=== PATIENT | female | born 1940 | race Caucasian/White ===

== ENCOUNTER 2018-06-25 00:37 | Outpatient (CLI) | payer MEDICARE, SELFPAY ==
--- NOTE | 2018-06-25 07:39 | DI.RAD_ITS ---
SYMPTOM/DIAGNOSIS: RT HIP PAIN, OSTEOPENIA M25.551, M85.80 RIGHT HIP: Comparison is made with 10 November 2011. There has been no change in the appearance of a left total hip prosthesis. There are moderate degenerative changes of the right hip with joint space narrowing, greater medially and inferiorly and periarticular spurring. There are advanced degenerative changes of the lower lumbar spine. Surgical clips are seen in the right lower quadrant. IMPRESSION: Moderate degenerative changes of the right hip.
[2018-06-25 08:00] LABS: Abs Immature Grans 0.02 k/cumm (0.0-0.09); Absolute Basophil Count 0.04 k/cumm (0.0-0.2); Absolute Eosinophil Count 0.35 k/cumm (0.0-0.7); Absolute Lymphocyte Count 2.25 k/cumm (1.2-3.4); Absolute Monocyte Count 0.68 k/cumm (0.11-0.7); Absolute Neutrophil Count 2.65 k/cumm (1.2-6.7); Basophils % 0.7; Eosinophils % 5.8; HCT 39.1 % (36.0-46.0); Immature Grans % 0.3; Lymphocytes % 37.6; Mean Corp. HGB Concentration 33.2 g/dL (32.0-36.0); Mean Corpuscular Hemoglobin 28.6 pg (27.0-33.0); Mean Corpuscular Volume 86.1 fL (80-95); Mean Platelet Volume 8.9 fL (8.0-11.0); Monocytes % 11.4; Neutrophils % 44.2; Platelet Count 192 x1000/uL (130-400); RBC 4.54 m/cumm (4.00-5.20); RBC Distribution Width 13.3 % (11.7-14.6); White Blood Cell Count 5.99 k/cumm (4.4-10.8)
[2018-06-25 08:46] LABS: ALT 23 U/L (12-78); AST 20 U/L (15-37); Albumin 3.8 g/dL (3.4-5.0); Alkaline Phosphatase 95 U/L (46-116); Anion Gap 10.5 mmol/L (3-11); BUN 19 mg/dL (7-18); Bilirubin, Total 0.6 mg/dL (0.2-1.0); CO2 26.5 mmol/L (21.0-32.0); CREATININE 0.89 mg/dL (0.55-1.02); Chloride 103 mmol/L (98-107); Cholesterol 200 mg/dL (50-200); Glucose 100 mg/dL (70-100); HDL Cholesterol 43 mg/dL (40-60); LDL CHOLESTEROL 146 mg/dL (<100); Potassium 4.1 mmol/L (3.5-5.1); Sodium 140 mmol/L (136-145); TSH 2.76 uIU/mL (0.358-3.74); Total Protein 7.1 g/dL (6.4-8.2); Triglyceride 74 mg/dL (30-150)
[2018-06-25 08:58] LABS: Vitamin D 25 Total 31.4 ng/ml (30-100)
[2018-06-25 09:02] LABS: FREE T4 1.16 ng/dL (0.76-1.46)
[2018-06-26 17:21] LABS: Intrinsic Factor Blocking Ab Negative (Negative)
== END 2018-06-25 00:57 ==
PROVIDERS: PCP Nurse Practitioner Family; Visit Provider Nurse Practitioner Family
DX: R53.83 Other fatigue (principal); M85.80 Other specified disorders of bone density and structure, unspecified site; I10 Essential (primary) hypertension; M25.551 Pain in right hip; M16.11 Unilateral primary osteoarthritis, right hip; Z96.642 Presence of left artificial hip joint
CPT/HCPCS: 36415; 80053; 80061; 82306; 83721; 73502; 84439; 84443; 85025; 86255; 86340

== ENCOUNTER → 2018-08-16 13:44 | Outpatient (BNVA) | payer MEDICARE, SELFPAY | PROVIDERS: PCP Nurse Practitioner Family; Referring Provider Nurse Practitioner Family; Visit Provider Orthopaedic Surgery | DX: M16.11 Unilateral primary osteoarthritis, right hip (principal); I10 Essential (primary) hypertension; Z96.642 Presence of left artificial hip joint | CPT/HCPCS: 99211; 99213 ==

== ENCOUNTER → 2018-12-04 10:06 | Outpatient (BNVA) | payer MEDICARE, SELFPAY | PROVIDERS: PCP Nurse Practitioner Family; Referring Provider Nurse Practitioner Family; Visit Provider Orthopaedic Surgery | DX: M16.11 Unilateral primary osteoarthritis, right hip (principal); Z96.642 Presence of left artificial hip joint | CPT/HCPCS: 99212 ==

== ENCOUNTER 2018-12-04 12:06 | Outpatient (CLI) | payer MEDICARE, SELFPAY ==
--- NOTE | 2018-12-04 10:37 | DI.RAD_ITS ---
SYMPTOMS/DIAGNOSIS: F/U DJD, RT HIP AP EXAMINATION OF THE HIPS: The patient is status post left MAYANK, the prosthesis in good position, surrounding bone intact. There are moderately severe degenerative changes involving the right hip with no significant interval change when compared with the prior examination of 06/25/2018.
== END 2018-12-04 12:26 ==
PROVIDERS: PCP Nurse Practitioner Family; Referring Provider Nurse Practitioner Family; Visit Provider Orthopaedic Surgery
DX: M16.11 Unilateral primary osteoarthritis, right hip (principal); Z96.642 Presence of left artificial hip joint
CPT/HCPCS: 99211; 99212; 72170

== ENCOUNTER 2019-05-16 06:35 | Emergency (ER) | payer MEDICARE, SELFPAY ==
[2019-05-16 06:39] VITALS: BP 190/90; PULSE 114; RESP 16; TEMP 36.9; O2SAT 99
--- NOTE | 2019-05-16 06:53 | ED.GENADUL_ITS ---
Discharge Plan Disposition Patient Disposition: HOME Condition: Good Discharge Details Chief Complaint: GenMedical Clinical Impression: Anxiety, Elevated blood pressure reading Primary Care Provider: Eliza Rockwell ED Provider: Cande Haji Home Meds and New Rx's Prescriptions: Continued cholecalciferol (vitamin D3) 2,000 unit capsule 2,000 unit PO DAILY RF: 0 multivitamin 1 EACH tablet 1 tab PO 2-3X/WEEKLY RF: 0 vit A and D3 in cod liver oil [cod liver oil] 1 EACH capsule 1 tsp PO 2-3x/wk RF: 0 ascorbic acid (vitamin C) [Vitamin C With Erin Hips] 500 MG tablet 500 mg PO DAILY RF: 0 Blutein 1 cap PO DAILY RF: 0 cyanocobalamin (vitamin B-12) 1,500 MCG tablet,disintegrating 1,500 mcg PO DAILY Qty: 30 RF: 11 Discontinued sertraline 50 mg Tablet 50 mg PO DAILY RF: 0 No Action alprazolam [Xanax] 0.5 mg tablet 0.5 mg PO QHS MDD 0.5 PRN (Reason: anxiety) Qty: 30 RF: 0 venlafaxine 37.5 mg capsule,extended release 24hr 37.5 mg PO DAILY Qty: 90 RF: 4 Discharge Instructions Instructions: Anxiety (ED) Additional Instructions: Please continue to take your medication as primary care asked you to. You may use alprazolam for acute anxiety attacks. Follow-up with primary care with therapist as scheduled. Return to ED for neurologic changes, severe headache, chest pain, shortness of breath. Referrals: Eliza Rockwell NP [Primary Care Provider] - Discharge Data Discharge Date/Time-TO BE ENTERED AT DEPARTURE: 05/16/19 09:17 Discharge Physician: Cande Haji Medical Decision Making <Gregg Angel MD - Last Filed: 05/19/19 20:40> Patient is extremely anxious. Suspect this is driving her blood pressure and heart rate more than anything else. She is a little concerned for her thyroid so we will check TSH with reflex T4. However, she is completely asymptomatic in regards to hypertensive crisis. She has a lot of questions regarding her medications. I have told her that that should be something her primary care continues to manage as it is a matter of finding the right medication for the patient. I would not start an antihypertensive at this point. Medical Records Medical records reviewed: Yes I reviewed the patient's medical records. <Cande Haji DO - Last Filed: 05/16/19 10:23> 0800 -- Please see Dr. Angel's note for initial presentation and course. Patient care endorsed to me to follow-up on results of TSH and T4 and if negative, okay to discharge home with plan for follow-up with PCP. 0845 -- TSH within normal limits. Had an extensive discussion with patient regarding her symptoms of anxiety. She is extremely anxious in general but more when discussing her medication regimen. She had been taking half tab of her alprazolam twice daily. She states she is not sleeping. She was advised to go up to the recommended 1 tab twice daily as needed. She had been taking Effexor up until last June but stopped until starting sertraline 4 days ago. She felt more anxious with 50mg sertraline. She was then tapered down to 25 mg sertraline and restarted on her Effexor but states she felt better with the 25 mg sertraline. She was advised to discuss her continued medication plan with her pcp and we discussed the benefits of meditation and relaxation techniques. After this discussion, patient feels good to go home. She was advised to follow-up with her primary care doctor for reevaluation and to return here with any concerns. She had no other acute complaints prior to discharge. BP before discharge improved to 156/84. HPI <Gregg Angel MD - Last Filed: 05/19/19 20:40> General Mode of arrival: ambulatory . Date/Time Provider Initiated Documentation: 05/16/19 06:50 . Limitations to Documentation: no limitations . Information obtained by: patient, RN notes reviewed and old records reviewed . HPI Narrative: Patient presents to ED with complaints of elevated blood pressure and anxiety. She has been having issues with anxiety for a few weeks now. Seems to be triggered by the of a close family member. She has been seen by primary care. She was started on sertraline but is being switched over to venlafaxine. She also has alprazolam to use. She is not on blood pressure medicine currently. She denies having headache, chest pain, shortness of breath, neurologic changes. She is extremely anxious. She feels that the medications that there is using and changing around his was making her blood pressure go up. She is also worried that maybe it is her thyroid again and she felt this way previously with thyroid problem. She does not have any specific physical complaint. Related Data Home Medications Medication Instructions Recorded Confirmed multivitamin 1 tab PO 2-3X/WEEKLY 11/05/12 05/16/19 vit A and D3 in cod liver oil [cod 1 tsp PO 2-3x/wk 11/05/12 05/16/19 liver oil] ascorbic acid (vitamin C) [Vitamin 500 mg PO DAILY 04/04/14 05/16/19 C With Erin Hips] Blutein 1 cap PO DAILY 05/24/17 05/16/19 cyanocobalamin (vitamin B-12) 1,500 mcg PO DAILY #30 tab.sl 12/18/17 05/16/19 cholecalciferol (vitamin D3) 2,000 2,000 unit PO DAILY 08/31/18 05/16/19 unit capsule alprazolam 0.5 mg tablet 0.5 mg PO QHS PRN #30 tab-cap [facility] 05/17/19 0.5 venlafaxine 37.5 mg 37.5 mg PO DAILY #90 cap 05/17/19 capsule,extended release 24 hr Previous Rx's Medication Instructions Recorded cyanocobalamin (vitamin B-12) 1,500 mcg PO DAILY #30 tab.sl 12/18/17 alprazolam 0.5 mg tablet 0.5 mg PO QHS PRN #30 tab-cap MDD 05/17/19 0.5 venlafaxine 37.5 mg 37.5 mg PO DAILY #90 cap 05/17/19 capsule,extended release 24 hr Allergies Allergy/AdvReac Type Severity Reaction Status Date / Time adhesive Allergy Intermediate SKIN RASH Verified 05/16/19 06:45 atenolol Allergy Intermediate SHORTNESS Verified 05/16/19 06:45 OF BREATH Echinacea AdvReac Intermediate NAUSEA/VOMI Verified 05/16/19 06:45 TING lisinopril AdvReac Unknown ANXIOUS Verified 05/16/19 06:45 pseudoephedrine AdvReac Unknown ANXIOUS Verified 05/16/19 06:45 caffeine AdvReac shaky if Verified 05/16/19 06:45 >1 cup/day citalopram AdvReac ANXIETY Verified 05/16/19 06:45 shellfish derived AdvReac NAUSEA/VOMI Verified 05/16/19 06:45 TING NUT FLAVOR Allergy HIVES Uncoded 05/16/19 06:45 General Stated Complaint: GenMedical CYNTHIA: 3 Review of Systems <Gregg Angel MD - Last Filed: 05/19/19 20:40> Narrative: As documented in HPI otherwise negative as below. 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 aDy Social History Smoking/Tobacco Use Status: Never Alcohol Intake: current Alcohol Intake frequency: a few times a month Alcohol type: beer and wine Drug use: Never Substance use type: does not use Duration: 15-30 minutes/day Frequency: 3-4 times per week Emmie/Catholic: Latter-Day Special emmie needs: No Do you feel safe at home: Yes Do you feel safe in your relationship?: Yes History History 1 Para 1 Hx # Term Pregnancies Multiple births Hx # Pregnancies Ectopic pregnancies AB induced Hx Number of Living Children 1 AB spontaneous Exam <Gregg Angel MD - Last Filed: 05/19/19 20:40> Narrative Exam Narrative: Vitals: Afebrile. Heart rate and blood pressure elevated. Room air saturations normal. Const: WDWN very anxious elderly female in NAD. HEENT: NC/AT. Normal facial exam. Eyes: Normal conjunctiva and sclera. Neck: Supple. Trachea midline. Lungs: Normal respiratory effort. Lungs are clear. Cor: RRR without murmur/gallop. Good radial pulses. Neuro: A+O x 3. Cranial nerves grossly intact. Speech, gait, strength, sensation normal. Course <Gregg Angel MD - Last Filed: 05/19/19 20:40> Vital Signs Vital signs: Vital Signs Temperature 98.4 F 05/16/19 06:39 Pulse 114 H 05/16/19 06:39 Respiratory Rate 16 05/16/19 06:39 Blood Pressure 190/90 H 05/16/19 06:39 Pulse Oximetry 99 05/16/19 06:39 Temperature 98.4 F 05/16/19 06:39 Pulse 114 H 05/16/19 06:39 Respiratory Rate 16 05/16/19 06:39 Respiratory Effort Non-Labored 05/16/19 06:48 Blood Pressure 190/90 H 05/16/19 06:39 Pulse Oximetry 99 05/16/19 06:39 Oxygen Delivery Method Room Air 05/16/19 06:39 Oxygen Flow Rate 0 05/16/19 06:39 Comment restarted venlafaxine 37.5 mg daily-lastnight 05/16/19 06:39 Sign Out <Gregg Angel MD - Last Filed: 05/19/19 20:40> Sign Out Data: Sign Out Comment: Pending return of laboratory studies patient signed over to Dr. Haji. Last updated by Gregg Angel MD at 05/16/19 07:55
[2019-05-16 07:08] VITALS: RESP 18
[2019-05-16 08:03] LABS: TSH (W/Ref FT4) 1.82 uIU/mL (0.36-3.74)
[2019-05-16 08:53] VITALS: BP 156/84; PULSE 90; RESP 18; O2SAT 98
[2019-05-16 09:20] VITALS: BP 158/84; PULSE 90; RESP 18; O2SAT 98
== END 2019-05-16 09:17 | disposition home or self-care (01) ==
PROVIDERS: Emergency Medicine; Emergency Provider Physician Assistant; PCP Nurse Practitioner Family
DX: F41.8 Other specified anxiety disorders (principal); I10 Essential (primary) hypertension
CPT/HCPCS: 36415; 99283; 84443

== ENCOUNTER 2019-06-24 09:42 | Outpatient (CLI) | payer MEDICARE, SELFPAY ==
[2019-06-24 11:26] LABS: HCT 41.7 % (36.0-46.0); HGB 13.5 g/dL (12.0-15.5); Mean Corp. HGB Concentration 32.4 g/dL (32.0-36.0); Mean Corpuscular Hemoglobin 27.9 pg (27.0-33.0); Mean Corpuscular Volume 86.2 fL (80-95); Mean Platelet Volume 8.8 fL (8.0-11.0); Platelet Count 251 x1000/uL (130-400); RBC 4.84 m/cumm (4.00-5.20); RBC Distribution Width 13.6 % (11.7-14.6); White Blood Cell Count 8.44 k/cumm (4.4-10.8)
[2019-06-24 12:03] LABS: Anion Gap 10.2 mmol/L (3-11); BUN 17 mg/dL (7-18); CO2 27.8 mmol/L (21.0-32.0); CREATININE 0.77 mg/dL (0.55-1.02); Calcium 9.2 mg/dL (8.5-10.1); Chloride 102 mmol/L (98-107); Glucose 110 mg/dL (74-106); Potassium 3.8 mmol/L (3.5-5.1); Sodium 140 mmol/L (136-145)
[2019-06-24 12:58] LABS: Vitamin B12 216 pg/mL (193-986)
[2019-06-29 15:28] LABS: Methylmalonic Acid 0.34 nmol/mL (<=0.40)
== END 2019-06-24 10:02 ==
PROVIDERS: PCP Nurse Practitioner Family; Visit Provider Nurse Practitioner Family
DX: F41.1 Generalized anxiety disorder (principal); F32.9 Major depressive disorder, single episode, unspecified; Z86.39 Personal history of other endocrine, nutritional and metabolic disease; E53.8 Deficiency of other specified B group vitamins
CPT/HCPCS: 36415; 80048; 80186; 85027; 82607

== ENCOUNTER 2019-07-04 10:51 | Outpatient (CLI) | payer MEDICARE, SELFPAY ==
[2019-07-04 13:07] LABS: Magnesium 2.3 mg/dL (1.8-2.4)
== END 2019-07-04 11:11 ==
PROVIDERS: PCP Nurse Practitioner Family; Visit Provider Nurse Practitioner Family
DX: I10 Essential (primary) hypertension (principal)
CPT/HCPCS: 36415; 83735

== ENCOUNTER 2019-09-02 11:27 | Outpatient (CLI) | payer MEDICARE, SELFPAY ==
[2019-09-02 13:07] LABS: HCT 39.8 % (36.0-46.0); HGB 13.1 g/dL (12.0-15.5); Mean Corp. HGB Concentration 32.9 g/dL (32.0-36.0); Mean Corpuscular Hemoglobin 28.3 pg (27.0-33.0); Platelet Count 266 x1000/uL (130-400); RBC 4.63 m/cumm (4.00-5.20); RBC Distribution Width 13.7 % (11.7-14.6); White Blood Cell Count 8.27 k/cumm (4.4-10.8)
[2019-09-02 13:51] LABS: ALT 19 U/L (14-59); AST 16 U/L (15-37); Albumin 3.9 g/dL (3.4-5.0); Alkaline Phosphatase 93 U/L (46-116); BUN 16 mg/dL (7-18); Bilirubin, Total 0.5 mg/dL (0.2-1.0); CREATININE 0.68 mg/dL (0.55-1.02); Calcium 9.2 mg/dL (8.5-10.1); Chloride 102 mmol/L (98-107); Glucose 98 mg/dL (74-106); Potassium 4.1 mmol/L (3.5-5.1); Sodium 141 mmol/L (136-145); Total Protein 6.9 g/dL (6.4-8.2)
== END 2019-09-02 11:47 ==
PROVIDERS: PCP Nurse Practitioner Family; Visit Provider Nurse Practitioner Family
DX: F41.1 Generalized anxiety disorder (principal); F32.9 Major depressive disorder, single episode, unspecified; I10 Essential (primary) hypertension
CPT/HCPCS: 36415; 80053; 85027

== ENCOUNTER 2019-09-25 04:18 | Outpatient (CLI) | payer MEDICARE, SELFPAY | END 2019-09-25 04:38 | PROVIDERS: PCP Nurse Practitioner Family; Visit Provider Nurse Practitioner Family | DX: R00.2 Palpitations (principal); I47.1 Supraventricular tachycardia | CPT/HCPCS: 93225 ==

== ENCOUNTER 2019-09-27 16:35 | Outpatient (CLI) | payer MEDICARE, SELFPAY ==
--- NOTE | 2019-09-30 08:53 | W.HOLTRPT ---
Date of service: 09/30/19 Time of Service: 08:54 Holter Monitor Report Holter Monitor Note: This is a 2-day Holter monitor ordered for the indication of palpitations. ?The patient was in normal sinus rhythm for the majority of the recording. ?There were 2 episodes of supraventricular tachycardia with the longest lasting 6 beats. There were rare (55 total) premature atrial contractions. ?There were no episodes of ventricular tachycardia and rare (0.5%) single ventricular ectopic beats. ?There were no episodes of atrial fibrillation, no pauses greater than 3 seconds and no episodes of high degree heart block. ?Patient diary events were associated with normal sinus rhythm and a premature atrial contraction.
== END 2019-09-27 16:55 ==
PROVIDERS: PCP Nurse Practitioner Family; Visit Provider Nurse Practitioner Family
DX: R00.2 Palpitations (principal); I47.1 Supraventricular tachycardia
CPT/HCPCS: 93226

== ENCOUNTER 2019-09-30 08:53 | Outpatient (CLI) | payer MEDICARE, SELFPAY | END 2019-09-30 09:13 | PROVIDERS: PCP Nurse Practitioner Family; Referring Provider Nurse Practitioner Family; Visit Provider Internal Medicine Cardiovascular Disease | DX: R00.2 Palpitations (principal); I47.1 Supraventricular tachycardia | CPT/HCPCS: 93227 ==

== ENCOUNTER 2019-12-17 19:32 | Outpatient (REF) | payer MEDICARE, SELFPAY ==
[2019-12-17 20:22] LABS: HCT 39.4 % (36.0-46.0); HGB 13.1 g/dL (12.0-15.5); Mean Corp. HGB Concentration 33.2 g/dL (32.0-36.0); Mean Corpuscular Volume 87.2 fL (80-95); Mean Platelet Volume 9.3 fL (8.0-11.0); Platelet Count 251 x1000/uL (130-400); RBC 4.52 m/cumm (4.00-5.20); RBC Distribution Width 13.3 % (11.7-14.6); White Blood Cell Count 10.04 k/cumm (4.4-10.8)
[2019-12-17 20:41] LABS: ALT 22 U/L (14-59); AST 18 U/L (15-37); Albumin 4.2 g/dL (3.4-5.0); Alkaline Phosphatase 91 U/L (46-116); Anion Gap 10.9 mmol/L (3-11); BUN 20 mg/dL (7-18); Bilirubin, Total 0.4 mg/dL (0.2-1.0); CO2 24.1 mmol/L (21.0-32.0); CREATININE 0.85 mg/dL (0.55-1.02); Calcium 9.1 mg/dL (8.5-10.1); Chloride 101 mmol/L (98-107); Glucose 109 mg/dL (74-106); Potassium 4.1 mmol/L (3.5-5.1); Sodium 136 mmol/L (136-145); Total Protein 7.3 g/dL (6.4-8.2)
[2019-12-17 20:49] LABS: TSH (W/Ref FT4) 1.13 uIU/mL (0.36-3.74)
[2019-12-18 10:50] LABS: Hemoglobin A1C 5.4 % (3.8-5.6)
== END 2019-12-17 19:52 ==
LOC: LBN 19:32
PROVIDERS: PCP Nurse Practitioner Family; Visit Provider Family Medicine
DX: R73.01 Impaired fasting glucose (principal); F32.9 Major depressive disorder, single episode, unspecified; F41.1 Generalized anxiety disorder
CPT/HCPCS: 80053; 85027; 83036; 84443

== ENCOUNTER 2020-02-17 01:20 | Outpatient (CLI) | payer MEDICARE, SELFPAY ==
--- NOTE | 2020-02-17 07:45 | DI.MRI_ITS ---
EXAM: MR BRAIN WO CLINICAL HISTORY: UNSTEADY GAIT/[id number]. TECHNIQUE: Multiplanar multisequence MRI was performed. COMPARISON: No exams were available for comparison FINDINGS: MR examination of brain was performed according to the usual protocol. There is mild generalized cere bral atrophy. There are scattered areas of abnormal signal in periventricular and subcortical white m atter consistent with mild microvascular ischemic changes not unusual in this age group.. There is no evidence of diffusion restriction to suggest the presence of infarction. Susceptibility weighted johnathan ging shows no evidence of intracranial hemorrhage. The orbital and temporal bone structures appear intact. There is normal flow void in the [id number] llis vasculature. IMPRESSION: Mild cerebral atrophy and mild presumed microvascular ischemic changes, the appearance of the scan is unremarkable for age. DATA REPOSITORY:
== END 2020-02-17 01:40 ==
PROVIDERS: PCP Nurse Practitioner Family; Visit Provider Nurse Practitioner Family
DX: R26.89 Other abnormalities of gait and mobility (principal); G31.9 Degenerative disease of nervous system, unspecified
CPT/HCPCS: 70551

== ENCOUNTER 2020-06-04 04:47 | Outpatient (CLI) | payer MEDICARE, SELFPAY ==
[2020-06-04 17:22] LABS: Ferritin 154 ng/mL (8-252)
== END 2020-06-04 05:07 ==
PROVIDERS: PCP Nurse Practitioner Family; Visit Provider Nurse Practitioner
DX: M25.551 Pain in right hip (principal)
CPT/HCPCS: 36415; 82728

== ENCOUNTER 2020-07-03 03:42 | Outpatient (CLI) | payer MEDICARE, SELFPAY ==
[2020-07-06 17:20] LABS: COVID-19 RT-PCR Result NEGATIVE (Negative)
== END 2020-07-03 04:02 ==
PROVIDERS: PCP Nurse Practitioner Family; Visit Provider Nurse Practitioner Family
DX: Z20.828 Contact with and (suspected) exposure to other viral communicable diseases (principal)
CPT/HCPCS: U0003

== ENCOUNTER 2020-08-07 01:52 | Outpatient (CLI) | payer MEDICARE, SELFPAY ==
[2020-08-07 10:09] LABS: ALT 21 U/L (14-59); AST 15 U/L (15-37); Albumin 3.9 g/dL (3.4-5.0); Alkaline Phosphatase 69 U/L (46-116); Anion Gap 7.5 mmol/L (3-11); BUN 16 mg/dL (7-18); Bilirubin, Total 0.6 mg/dL (0.2-1.0); CO2 27.5 mmol/L (21.0-32.0); CREATININE 0.92 mg/dL (0.55-1.02); Calcium 8.5 mg/dL (8.5-10.1); Chloride 102 mmol/L (98-107); Estimated GFR 58.59 (mL/min/1.73m2); Glucose 96 mg/dL (74-106); Sodium 137 mmol/L (136-145); TSH 1.52 uIU/mL (0.36-3.74); Total Protein 6.9 g/dL (6.4-8.2)
== END 2020-08-07 02:12 ==
PROVIDERS: PCP Nurse Practitioner Family; Visit Provider Nurse Practitioner Psychiatric/Mental Health
DX: F33.2 Major depressive disorder, recurrent severe without psychotic features (principal); F41.1 Generalized anxiety disorder; F60.9 Personality disorder, unspecified
CPT/HCPCS: 36415; 80053; 84443

== ENCOUNTER 2022-12-25 13:35 | Outpatient (REF) | payer MEDICARE, SELFPAY ==
[2022-12-25 15:08] LABS: COMMENT (LAB VIEW ONLY) 74.95 mg/dL; Microalb ug/mg Crea 5.3 ug/mg Cr
[2022-12-25 15:28] LABS: Anion Gap 10.9 mmol/L (3-11); BUN 10 mg/dL (7-18); CO2 26.1 mmol/L (21.0-32.0); CREATININE 0.7 mg/dL (0.55-1.02); Calcium 8.5 mg/dL (8.5-10.1); Chloride 101 mmol/L (98-107); Estimated GFR 85.76 (mL/min/1.73m2); Glucose 121 mg/dL (74-106); Sodium 138 mmol/L (136-145); TSH (W/Ref FT4) 0.83 uIU/mL (0.36-3.74); Vitamin B12 1596 pg/mL (193-986)
[2022-12-25 16:01] LABS: Bilirubin Negative (Negative); Blood Negative (Negative); Clarity Clear (Clear); Glucose Negative (Negative); Ketones Negative (Negative); Leukocyte Esterase Moderate (Negative); Nitrite Positive (Negative); Specific Gravity 1.015 (1.005-1.025)
[2022-12-25 16:19] LABS: Bacteria Many HPF (Negative); C & S Indicated? C&S Done As Ordered; Casts Negative LPF (Negative); Crystals Negative HPF (Negative); Epithelial Cells Rare HPF (Negative); Mucus Negative (Negative); RBC 0-2 HPF (0-2); WBC 20-50 HPF (0-5)
== END 2022-12-25 13:36 | disposition home or self-care (01) ==
LOC: NCHCN 13:35
PROVIDERS: Visit Provider Nurse Practitioner Family
DX: F41.8 Other specified anxiety disorders (principal); R26.89 Other abnormalities of gait and mobility; F43.23 Adjustment disorder with mixed anxiety and depressed mood; R03.0 Elevated blood-pressure reading, without diagnosis of hypertension; R32 Unspecified urinary incontinence; Z51.81 Encounter for therapeutic drug level monitoring; Z79.899 Other long term (current) drug therapy; M25.551 Pain in right hip
CPT/HCPCS: 80048; 87077; 80164; 81003; 81015; 82043; 82570; 82607; 84443; 87086; 87186

== ENCOUNTER 2023-01-23 19:06 | Outpatient (REF) | payer MEDICARE, SELFPAY ==
[2023-01-24 05:45] LABS: Bilirubin Negative (Negative); Blood Negative (Negative); Clarity Sl Cloudy (Clear); Glucose Negative (Negative); Ketones Negative (Negative); Leukocyte Esterase Small (Negative); Nitrite Negative (Negative); Urobilinogen 0.2 mg/dL (Up to 0.2); pH 5.5 (5-8)
[2023-01-24 05:53] LABS: Bacteria Many HPF (Negative); C & S Indicated? Yes; Crystals Negative HPF (Negative); Epithelial Cells Rare HPF (Negative); Mucus Negative (Negative); RBC 0-2 HPF (0-2)
== END 2023-01-23 19:07 | disposition home or self-care (01) ==
LOC: NCHCN 19:06
PROVIDERS: Visit Provider Nurse Practitioner Family
DX: R82.998 Other abnormal findings in urine (principal)
CPT/HCPCS: 87077; 81003; 81015; 87086; 87186

== ENCOUNTER 2023-02-25 08:53 | Emergency (ER) | payer MEDICARE, SELFPAY ==
[2023-02-25] VITALS (13 sets, daily range): BP systolic 134–175; BP diastolic 61–93; PULSE 87–100; RESP 18–39; TEMP 36.9; O2SAT 94–99
--- NOTE | 2023-02-25 09:00 | RT.EKG_ITS ---
APPROVED REPORT Exam: Resting ECG Reason for Exam: fall/Syncope Patient Location: E HR:84 bpm ECG Measurements Heart Rate 84 AXIS [place] 151 P 68 QRSd 87 QRS -2 QT 350 T 38 QTc 414 Conclusion Sinus rhythm...normal P axis, V-rate 60- 99
--- NOTE | 2023-02-25 09:15 | DI.CT_ITS ---
Exam(s) CT HEAD CERVICAL SPINE WO EXAM: CT HEAD CERVICAL SPINE WO CLINICAL HISTORY: fall headache, neck pain. TECHNIQUE: Imaging Protocol: Axial computed tomography images with coronal and sagittal reformatted images were created and reviewed COMPARISON: CT SINUS CT WITHOUT CONTRAST from 05/11/2015 MR MR BRAIN WO from 02/17/2020 FINDINGS: Head CT Ventricles and Extra axial spaces: Slight compression of the left lateral ventricle. Hemorrhage: There is an acute subdural hematoma seen extending from the level of the left tentorium a s well as long the posterior falx on the left and around the left frontotemporal and parietal sulci nearly to the level of the vertex. It measures 7 millimeters in greatest thickness. There is mild m ass effect on the adjacent brain with slight [id number] midline shift. No intraparenchymal hemorr ryne. Cerebral parenchyma: No intraparenchymal hemorrhage. Mild white matter changes of microvascular dise ase. Midline shift: Mild, few millimeters. Brainstem/Cerebellum: Normal. Calvarium: Normal. Visualized Paranasal sinuses/Mastoids: Clear. Soft tissues: Left superior scalp swelling. Punctate densities in the scalp could represent debris w ithin are underneath this scan. No visible large laceration. Cervical Spine CT BONES: Vertebral body heights are maintained. Alignment is normal. There is no evidence of acute frac ture. Degenerative changes are seen, greater of the facet joints. . SOFT TISSUES: No paraspinal hematoma. The airway appears intact. No pneumothorax is seen at the lung apices. IMPRESSION: Head CT: Left subdural hematoma causing mild mass effect mild [id number] midline shift. C-spine CT: Degenerative changes, no acute abnormality. RADIATION DOSE DELIVERED: Total DLP DATA REPOSITORY: All CT scans at this facility are submitted to the National Radiology Data Registry (NRDR) Dose Index Registry (DIR) with the [employer] ([employer]). RADIATION OPTIMIZATION: All CT scans at this facility use at least one of these dose optimization te chniques: automated exposure control; mA and/or kV adjustment per patient size (includes targeted exa ms where dose is matched to clinical indication); or iterative reconstruction.
--- NOTE | 2023-02-25 09:30 | ED.GENADUL_ITS ---
Discharge Plan Disposition Patient Disposition: Transfer-Acute Inpatient Care Specific Acute Inpt Facility: [facility] Discharge Details Clinical Impression: Subdural bleeding, Closed rib fracture, Multiple falls Primary Care Provider: None,None ED Provider: Reese Kline Home Meds and New Rx's Prescriptions: No Action cholecalciferol (vitamin D3) 2,000 unit capsule 2,000 unit PO DAILY cyanocobalamin (vitamin B-12) 1,500 mcg tablet,disintegrating 1,000 mcg PO DAILY trazodone 50 mg tablet 25 mg PO QHS Qty: 45 4RF Rx Instructions: Take half a tablet at bedtime propranolol 10 mg tablet 10 mg PO BID clonazepam 0.5 mg tablet 0.25 mg PO BID docusate sodium 100 mg capsule 100 mg PO DAILY PRN (Reason: constipation) Qty: 90 4RF vit A and D3 in cod liver oil [cod liver oil] 1 EACH capsule 1 tsp PO 2-3x/wk ascorbic acid (vitamin C) [Vitamin C With Erin Hips] 500 MG tablet 500 mg PO DAILY multivitamin Tablet 1 tab PO 2-3X/WEEKLY Blutein 1 cap PO Q OTHER DAY olanzapine 5 mg tablet 2.5 mg PO BID fluoxetine 40 mg capsule 40 mg PO DAILY Rx Instructions: Take 1 daily in addition to the 10mg capsule fluoxetine 10 mg capsule 10 mg PO DAILY Rx Instructions: Take 1 pill daily in addition to the 40mg capsule valproic acid 250 mg capsule 250 mg PO BID acetaminophen 500 mg Tablet 500 mg PO BID lorazepam 0.5 mg tablet 0.5 mg PO BID fluticasone propionate 50 mcg/actuation spray,suspension 1 spray INTRANASAL DAILY Rx Instructions: one spray in each nostril daily mirtazapine 7.5 mg tablet 7.5 mg PO HS acetylcysteine [NAC] 600 mg capsule 600 mg PO BID Patient Comments: Take 2 capsule by mouth twice a day melatonin 5 mg Tablet 5 mg PO HS PRN PreserVision AREDS 2,148 mcg-113 mg-45 mg-17.4mg Tablet 1 tab PO DAILY Discharge Data Discharge Date/Time-TO BE ENTERED AT DEPARTURE: 02/25/23 14:50 Medical Decision Making Patient presenting to the emergency department for chief complaint of multiple falls. Patient reports 4 falls since yesterday. Patient had recently moved to [facility] due to not being able to stay at home anymore. Patient has history of gait instability but due to significant number of falls with patient striking her head against the door frame and complaining of headache, neck pain, continued rib pain from previous falls and abdominal pain they sent her here. Patient is alert and oriented x3, can be difficult to understand due to mumbling but is able to communicate, no focal deficits noted but generalized weakness is appreciated. Given multiple areas of pain and discomfort and multiple falls given patient's age, history of osteopenia, and head injury will plan on performing labs, urinalysis, EKG, and CT scan of patient. Pending results we will give a small fluid bolus due to dry mucous membranes and acetaminophen. Please see physician interpretation for full interpretation of EKG but upon my review patient is in sinus rhythm, rate of 84, and overall unremarkable EKG. Reviewed patient's labs and she does have slight leukocytosis with WBCs of 13.84, elevated neutrophils and monocytes with low lymphocytes. CMP shows slightly low potassium at 3.4, AST low of 13 otherwise all other values within normal range, negative nondetected troponin. Review of CT imaging and radiologist interpretation shows a posterior nondisplaced left 11th rib fracture otherwise no other acute findings. CT imaging of head and neck shows a fairly significant subdural head bleed. No C- spine image deformity. Did initiate transfer to [facility]. Pending speaking to [facility] patient urinalysis returned and does show signs of infection so 1 g of Rocephin was given. Spoke with Dr. Rondon with neurosurgery. He recommended that we give Keppra but stated that they had no bed capacity to accept patient. Once I have requested a reached out to [facility] to see if they have capacity to have patient admission. Pending speaking with [facility] I did order 1 g of Keppra. Spoke with Dr. Llanos with neurosurgery at [facility] he stated that patient did not need to come to their facility but recommended a ED to ED transfer given the patient is a trauma patient. Spoke with Dr. Bennett ER attending who accepted patient for transfer. Imaging Data Radiologic Study: Imaging: CT Scan Radiologist's impression: Patient Name: Romy Arredondo #: [id number]: ER Ordering Provider: : REG ER Primary Care Provider: None,None Date of Exam: 02/25/23Sex: F : 1940Age: 82 Exam(s) PROCEDURE INFORMATION: Exam: CT Chest With Contrast; Diagnostic Exam date and time: 02/25/2023 11:06 AM Age: 82 years old Clinical indication: Other: Fall, right rib abdominal pain TECHNIQUE: Imaging protocol: Diagnostic computed tomography of the chest with contrast. Radiation optimization: All CT scans at this facility use at least one of these dose optimization techniques: automated exposure control; mA and/or kV adjustment per patient size (includes targeted exams where dose is matched to clinical indication); or iterative reconstruction. Contrast material: OMNI 350; Contrast volume: 99 ml; Contrast route: INTRAVENOUS (IV); COMPARISON: CT HEAD CERVICAL SPINE WO 02/25/2023 10:48 AM FINDINGS: Lungs: Left basilar scarring Pleural spaces: Unremarkable. No pneumothorax. No pleural effusion. Heart: Unremarkable. No cardiomegaly. No pericardial effusion. Coronary arteries: Coronary artery atherosclerotic calcifications Lymph nodes: Unremarkable. No enlarged lymph nodes. Vasculature: The right main pulmonary artery is markedly dilated at 3.5 cm, compatible with pulmonary hypertension, uncertain etiology Bones/joints: Possible nondisplaced right posterolateral 11th rib fracture. Recommend clinical correlation Soft tissues: Unremarkable. IMPRESSION: 1. Possible nondisplaced right posterolateral 11th rib fracture. Recommend clinical correlation 2. No pneumothorax PROCEDURE INFORMATION: Exam: CT Abdomen And Pelvis With Contrast Exam date and time: 02/25/2023 11:06 AM Age: 82 years old Clinical indication: Other: Fall, right rib abdominal pain TECHNIQUE: Imaging protocol: Computed tomography of the abdomen and pelvis with contrast. Radiation optimization: All CT scans at this facility use at least one of these dose optimization techniques: automated exposure control; mA and/or kV adjustment per patient size (includes targeted exams where dose is matched to clinical indication); or iterative reconstruction. Contrast material: OMNI 350; Contrast volume: 99 ml; Contrast route: INTRAVENOUS (IV); COMPARISON: CR XR pelvis AP 12/04/2018 10:29 AM FINDINGS: Lungs: See above Liver: Unremarkable. No mass. Gallbladder and bile ducts: Unremarkable. No calcified stones. No ductal dilation. Pancreas: Unremarkable. No ductal dilation. Spleen: Unremarkable. No splenomegaly. Adrenal glands: Normal. No mass. Kidneys and ureters: Unremarkable. No hydronephrosis. Stomach and bowel: Unremarkable. No obstruction. No mucosal thickening. Appendix: No evidence of appendicitis. Intraperitoneal space: Unremarkable. No free air. No significant fluid collection. Vasculature: Unremarkable. No abdominal aortic aneurysm. Lymph nodes: Unremarkable. No enlarged lymph nodes. Urinary bladder: Unremarkable as visualized. Reproductive: Unremarkable as visualized. Bones/joints: Left total hip arthroplasty. Severe right hip osteoarthritis. Remote fractures of the inferior pubic rami and right pubic symphysis. Remote sacral Soft tissues: Large umbilical hernia containing nondilated stool-filled large bowel IMPRESSION: No evidence of acute process HPI General Mode of arrival: EMS . Date/Time Provider Initiated Documentation: 02/25/23 08:56 . Limitations to Documentation: no limitations . Information obtained by: patient, RN/MD, EMS and RN notes reviewed . History of Present Illness 82 year old F presents to the emergency department with the chief complaint of Multiple falls, head injury, neck pain, rib pain, described as similar to prior episodes, and is localized to the head, neck and chest. Patient started experiencing this unknown and it has been intermittent. No exacerbating factors reported . Patient did receive the following treatments prior to arrival, none Related Data Home Medications Medication Instructions Recorded Confirmed vitamins A and D3 in cod liver oil 1 tsp PO 2-3x/wk 11/05/12 06/15/20 1,250 unit-135 unit capsule (cod liver oil) ascorbic acid (vitamin C) 500 mg 500 mg PO DAILY 04/04/14 02/25/23 tablet (Vitamin C With Erin Hips) cholecalciferol (vitamin D3) 50 2,000 unit PO DAILY 08/31/18 02/25/23 mcg (2,000 unit) capsule multivitamin 1 tab PO 2-3X/WEEKLY 07/18/19 02/25/23 Blutein 1 cap PO Q OTHER DAY 07/26/19 06/15/20 cyanocobalamin (vitamin B-12) 1,000 mcg PO DAILY 07/26/19 02/25/23 1,500 mcg disintegrating tablet propranolol 10 mg tablet 10 mg PO BID 02/12/20 06/15/20 trazodone 50 mg tablet 25 mg PO QHS #45 tabs 02/12/20 02/25/23 clonazepam 0.5 mg tablet 0.25 mg PO BID 02/21/20 06/15/20 olanzapine 5 mg tablet 2.5 mg PO BID 05/15/20 06/15/20 docusate sodium 100 mg capsule 100 mg PO DAILY PRN constipation 06/15/20 02/25/23 #90 caps fluoxetine 10 mg capsule 10 mg PO DAILY 07/30/20 fluoxetine 40 mg capsule 40 mg PO DAILY 07/30/20 acetaminophen 500 mg tablet 500 mg PO BID 02/25/23 02/25/23 acetylcysteine 600 mg capsule (NAC) 600 mg PO BID 02/25/23 02/25/23 fluticasone propionate 50 1 spray intranasal DAILY 02/25/23 02/25/23 mcg/actuation nasal spray,suspension lorazepam 0.5 mg tablet 0.5 mg PO BID 02/25/23 02/25/23 melatonin 5 mg tablet 5 mg PO HS PRN 02/25/23 02/25/23 mirtazapine 7.5 mg tablet 7.5 mg PO HS 02/25/23 02/25/23 valproic acid 250 mg capsule 250 mg PO BID 02/25/23 02/25/23 vitamins A,C,R-erco-iqwnll 2,148 1 tab PO DAILY 02/25/23 02/25/23 mcg-113 mg-45 mg-17.4 mg tablet (PreserVision AREDS) Previous Rx's Medication Instructions Recorded trazodone 50 mg tablet 25 mg PO QHS #45 tabs 02/12/20 docusate sodium 100 mg capsule 100 mg PO DAILY PRN constipation 06/15/20 #90 caps Allergies Allergy/AdvReac Type Severity Reaction Status Date / Time adhesive Allergy Intermediate SKIN RASH Verified 02/25/23 13:50 atenolol Allergy Intermediate SHORTNESS Verified 02/25/23 13:50 OF BREATH Echinacea AdvReac Intermediate NAUSEA/VOMI Verified 02/25/23 13:50 TING lisinopril AdvReac Unknown ANXIOUS Verified 02/25/23 13:50 pseudoephedrine AdvReac Unknown ANXIOUS Verified 02/25/23 13:50 caffeine AdvReac shaky if Verified 02/25/23 13:50 >1 cup/day citalopram AdvReac ANXIETY Verified 02/25/23 13:50 inverted sugar AdvReac make Verified 02/25/23 13:50 nervous shellfish derived AdvReac NAUSEA/VOMI Verified 02/25/23 13:50 TING NUT FLAVOR Allergy HIVES Uncoded 02/25/23 13:50 General Stated Complaint: Dizzy/Sync CYNTHIA: 3 Review of Systems Constitutional Constitutional: Denies chills, Denies fever(s), Reports frequent falls, Reports headache(s), Reports lethargy and Reports weakness ENT Ears, Nose, Mouth, and Throat: Reports headache(s) Cardiovascular Cardiovascular: Reports chest pain (Right rib pain) and Denies dyspnea Respiratory Respiratory: Reports chest congestion and Denies dyspnea Gastrointestinal Gastrointestinal: Reports abdominal pain, Denies diarrhea, Denies nausea and Denies vomiting Genitourinary Genitourinary: Denies dysuria Integumentary/Breasts Skin/Breast: Denies unusual bruising Neurologic Neurologic: Reports frequent falls, Reports headache(s) and Reports weakness [facility] All Active Problems (Updated 02/25/23 @ 14:27 by Reese Kline NP) Subdural bleeding (Acute) Closed rib fracture (Acute) Multiple falls (Acute) Essential hypertension (Chronic) Hyperlipidemia (Chronic) Depressive disorder (Chronic) Followed by [facility] Psychiatry Generalized anxiety disorder (Chronic) Vitamin B12 deficiency (Chronic) Insomnia (Chronic) PSG 04/2020 with no sleep apnea but PLMD Osteopenia (Chronic) PLMD (periodic limb movement disorder) (Chronic) PSG 04/2020 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 Day Family History Mother , at 95 Essential hypertension Depression Heart disease Colon cancer Father , Heart attack at age 91. Depression Myocardial infarction Heart disease Hypertension Son Hypertension Maternal Grandfather , at 72 Heart disease Maternal Grandmother , at 58 Colon cancer Paternal Grandfather Heart disease Paternal Grandmother Heart disease Hypertension Social History Smoking/Tobacco Use Status: Never Smoking risk assessment performed?: Yes Alcohol Intake: current Alcohol Intake frequency: a few times a month Alcohol type: beer and wine Drug use: Never Substance use type: does not use Housing: assisted living facility Duration: 15-30 minutes/day Frequency: 3-4 times per week Emmie/Protestant: Druze Special emmie needs: No Do you feel safe at home: Yes Do you feel safe in your relationship?: Yes Additional Social history: Patient Lives at [facility] History History 1 Para 1 Hx # Term Pregnancies Multiple births Hx # Pregnancies Ectopic pregnancies AB induced Hx Number of Living Children 1 AB spontaneous Exam Const General: cooperative, no acute distress and frail appearing Nutritional Appearance: thin Orientation: alert, awake and oriented x3 HENMT Head: normocephalic, abrasion, no Silva's sign, no raccoon eyes and no scalp tenderness Ears: TM's normal bilaterally General nose exam: external nose normal Face and sinus: normal facial exam Mouth: oral mucosae normal Neck Neck: normal visual inspection, full ROM and nontender Chest Chest: tenderness (Right axillary ribs) Resp Effort & Inspection: normal respiratory effort, able to speak in complete sentences and no respiratory distress Auscultation: clear to auscultation bilaterally Cardio Rate: regular rate Rhythm: regular rhythm Heart Sounds: S1 normal Pulses: radial pulses present GI Palpation: soft, no hepatosplenomegaly, not firm, no guarding, no masses, no pulsatile masses, not rigid, no splenomegaly and tender in the LLQ and suprapubicly Auscultation: normal bowel sounds Skin General skin exam: no rashes or lesions noted Neuro General: patient alert, patient awake, patient oriented x3, moves all extremities and no focal motor deficits Sensory Exam: no sensory deficits noted Course Vital Signs Vital signs: Vital Signs Temperature 36.9 C 02/25/23 08:55 Pulse 89 02/25/23 08:55 Respiratory Rate 18 02/25/23 08:55 Blood Pressure 134/93 H 02/25/23 08:55 Pulse Oximetry 98 02/25/23 08:55 Temperature 36.9 C 02/25/23 08:55 Temperature Source Oral 02/25/23 08:55 Pulse 89 02/25/23 08:55 Respiratory Rate 18 02/25/23 09:02 Respiratory Effort Normal, Non-Labored 02/25/23 09:02 Respiratory Depth Normal 02/25/23 09:02 Respiratory Pattern Normal 02/25/23 09:02 Blood Pressure 134/93 H 02/25/23 08:55 Pulse Oximetry 98 02/25/23 08:55 Oxygen Delivery Method Room Air 02/25/23 08:55 Oxygen Flow Rate 0 02/25/23 08:55 Critical Care Time Critical Care Time Critical Care Time: Yes Total Critical Care Time: 45 Attestation: Due to subdural bleed with high probability of imminent or life threatening deterioration in the patient?s condition without intervention and treatment. Time spent documenting, reviewing labs and radiographs, monitoring Vital signs, reassessing patient, and speaking with both [facility] and [facility] tertiary care centers, neurosurgery teams, emergency department team, and EMS.
[2023-02-25] MEDS: Normal Saline 500 ML IV (09:35)
[2023-02-25 09:38] LABS: Absolute Basophil Count 0.07 10^3/uL (0.0-0.2); Absolute Eosinophil Count 0.04 10^3/uL (0.0-0.7); Absolute Lymphocyte Count 0.93 10^3/uL (1.2-3.4); Basophils % 0.5; Eosinophils % 0.3; HCT 33.6 % (36.0-46.0); HGB 11.2 g/dL (11.2-15.7); Immature Grans % 0.7; Lymphocytes % 6.7; MCH 30.3 pg (27.0-33.0); MCHC 33.3 % (32.0-36.0); MCV 91 fL (80-95); MPV 8.1 fL (8.0-11.0); Monocytes % 9.2; Neutrophils % 82.6; Platelet Count 183 10^3/uL (130-400); RDW 13.5 % (11.7-14.6); RDW-SD 45.1 fL; WBC 13.84 10^3/uL (4.4-10.8)
[2023-02-25 09:43] LABS: Absolute Monocyte Count 1.27 10^3/uL (0.1-0.8); Absolute Neutrophil Count 11.43 10^3/uL (1.2-6.7)
[2023-02-25 09:52] LABS: Prothrombin Time 9.9 sec (9.3-11.0)
[2023-02-25 09:56] LABS: ALT 20 U/L (14-59); AST 13 U/L (15-37); Albumin 3.5 g/dL (3.4-5.0); Alkaline Phosphatase 110 U/L (46-116); Anion Gap 10.3 mmol/L (3-11); BUN 8 mg/dL (7-18); Bilirubin, Total 0.7 mg/dL (0.2-1.0); CO2 27.7 mmol/L (21.0-32.0); CREATININE 0.7 mg/dL (0.55-1.02); Calcium 8.7 mg/dL (8.5-10.1); Chloride 99 mmol/L (98-107); Estimated GFR 85.76 (mL/min/1.73m2); Glucose 104 mg/dL (74-106); Magnesium 2.1 mg/dL (1.8-2.4); Potassium 3.4 mmol/L (3.5-5.1); Sodium 137 mmol/L (136-145); Total Protein 7.3 g/dL (6.4-8.2); Troponin I < 50 ng/L (<or=60)
--- NOTE | 2023-02-25 11:06 | DI.CT_ITS ---
Exam(s) CT CHEST/ABD/PEL W EXAM: CT CHEST/ABD/PEL W CLINICAL HISTORY: fall right rib and abd pain. TECHNIQUE: Imaging Protocol: Axial computed tomography images with coronal and sagittal reformatted images were created and reviewed CONTRAST MATERIAL: Intravenous: Omnipaque 350 Contrast volume:99 ml Oral: no COMPARISON: CT ABD PELVIS WITH CONTRAST from 08/10/2010 CT ABD PELVIS WO CONTRAST from 04/06/2012 CR,XR XR FEMUR LT from 02/25/2023 FINDINGS: CHEST: Tracheobronchial tree: Patent where visualized. Pulmonary parenchyma: No consolidation or dominant measurable mass. Minimal linear scarring at lung bases. Pleura: No effusion or pneumothorax. Lymph nodes: Within normal limits. Aorta: Thoracic portion non-dilated. Atherosclerotic changes. Heart: Mildly enlarged. Coronary artery calcifications, mitral valve calcifications. Bones: Severe degenerative changes of both shoulders. No lytic or blastic lesions.No compression fra ctures. Degenerative changes in the spine. Slight deformity of manubrium. No definite acute fractu re or significant surrounding soft tissue swelling. No rib fractures identified. Soft tissues: Small hiatal hernia. ABDOMEN: Liver: Normal density. No measurable mass. Gallbladder and biliary tract: No radiodense calculus or dilation. Pancreas: Normal density, no abnormal calcifications or inflammatory process. Spleen: Normal. Kidneys: Normal size, contour and axis. No radiodense stones or obstructive uropathy. No suspicious m asses seen. Adrenal glands: No masses seen. Aorta: Abdominal portion non-dilated. Severe atherosclerotic changes. Lymph nodes: Within normal limits. Soft tissues: Umbilical hernia containing portion of the transverse colon without evidence of obstruc tion. This was present on the previous exam but has increased in size. PELVIS: Bladder: Symmetric distention, no gross wall thickening. Bowel: No obstruction or bowel wall thickening. Increased quantity of stool in the ascending through splenic flexure and rectum. Peritoneal cavity: No ascites, collection or mesenteric inflammatory response. Bones: Severe degenerative changes of the right hip. Left hip prosthesis. Acute nondisplaced fractu re at the left lesser trochanter adjacent to the prosthesis. No additional acute fractures identifie d. Old fractures of the superior and inferior pubic rami bilaterally as well as old upper sacral ins ufficiency fractures. Reproductive organs: Status post hysterectomy. IMPRESSION: Chest: Slight deformity of the manubrium may represent an old fracture. Clinical correlation rectum at the area of patient tenderness. No rib or spine fractures or evidence of pneumothorax. Abdomen and pelvis: Acute fracture, nondisplaced of the lesser trochanter. The left hip prosthesis a ppears intact. Old bilateral sacral and pelvic fractures. Umbilical hernia containing portion of the transverse colon which is not obstructed. RADIATION DOSE DELIVERED: Total DLP DATA REPOSITORY: All CT scans at this facility are submitted to the National Radiology Data Registry (NRDR) Dose Index Registry (DIR) with the [employer] (A[employer]). RADIATION OPTIMIZATION: All CT scans at this facility use at least one of these dose optimization te chniques: automated exposure control; mA and/or kV adjustment per patient size (includes targeted exa ms where dose is matched to clinical indication); or iterative reconstruction.
[2023-02-25] MEDS: Normal Saline Flush 10 ML SYR IVP (11:16)
[2023-02-25] MEDS: Normal Saline - Diluent 50 ML VIAL IJ (11:16)
[2023-02-25] MEDS: Omnipaque 350 MG/ML 100 ML BTL IJ (11:17)
--- NOTE | 2023-02-25 11:30 | DI.RAD_ITS ---
Exam(s) XR FEMUR LT EXAM: XR FEMUR LT CLINICAL HISTORY: fall/pain. TECHNIQUE: 2D digital imaging was performed. Three views. COMPARISON: 04 Dec 2018 FINDINGS: Exam limited by overlying clothing. BONES: There is a left hip prosthesis which appears unchanged in alignment. Bones appear osteopenic. There is an acute nondisplaced fracture noted at the level of the lesser trochanter. Subacute appe aring fracture at the left inferior pubic ramus. No bony destructive lesion is seen. JOINTS: No dislocation present. Degenerative changes at the knee. SOFT TISSUE: Contrast noted in the urinary bladder related to recent CT. IMPRESSION: Acute nondisplaced fracture in the region of the lesser trochanter. DATA REPOSITORY: RADIATION DOSE DELIVERED:
[2023-02-25 11:32] LABS: Bilirubin Negative (Negative); Blood Trace-intact (Negative); Clarity Sl Cloudy (Clear); Glucose Negative (Negative); Ketones Trace mg/dL (Negative); Leukocyte Esterase Moderate (Negative); Nitrite Negative (Negative); Specific Gravity 1.015 (1.005-1.025); Urobilinogen 0.2 mg/dL (Up to 0.2)
[2023-02-25 11:40] LABS: Bacteria Many HPF (Negative); C & S Indicated? Yes; Casts Negative LPF (Negative); Crystals Negative HPF (Negative); Epithelial Cells Rare HPF (Negative); Mucus Negative (Negative); WBC 20-50 HPF (0-5)
--- NOTE | 2023-02-25 11:51 | DI.VRAD_ITS ---
PROCEDURE INFORMATION: Exam: CT Chest With Contrast; Diagnostic Exam date and time: 02/25/2023 11:06 AM Age: 82 years old Clinical indication: Other: Fall, right rib abdominal pain TECHNIQUE: Imaging protocol: Diagnostic computed tomography of the chest with contrast. Radiation optimization: All CT scans at this facility use at least one of these dose optimization techniques: automated exposure control; mA and/or kV adjustment per patient size (includes targeted exams where dose is matched to clinical indication); or iterative reconstruction. Contrast material: OMNI 350; Contrast volume: 99 ml; Contrast route: INTRAVENOUS (IV); COMPARISON: CT HEAD CERVICAL SPINE WO 02/25/2023 10:48 AM FINDINGS: Lungs: Left basilar scarring Pleural spaces: Unremarkable. No pneumothorax. No pleural effusion. Heart: Unremarkable. No cardiomegaly. No pericardial effusion. Coronary arteries: Coronary artery atherosclerotic calcifications Lymph nodes: Unremarkable. No enlarged lymph nodes. Vasculature: The right main pulmonary artery is markedly dilated at 3.5 cm, compatible with pulmonary hypertension, uncertain etiology Bones/joints: Possible nondisplaced right posterolateral 11th rib fracture. Recommend clinical correlation Soft tissues: Unremarkable. IMPRESSION: 1. Possible nondisplaced right posterolateral 11th rib fracture. Recommend clinical correlation 2. No pneumothorax PROCEDURE INFORMATION: Exam: CT Abdomen And Pelvis With Contrast Exam date and time: 02/25/2023 11:06 AM Age: 82 years old Clinical indication: Other: Fall, right rib abdominal pain TECHNIQUE: Imaging protocol: Computed tomography of the abdomen and pelvis with contrast. Radiation optimization: All CT scans at this facility use at least one of these dose optimization techniques: automated exposure control; mA and/or kV adjustment per patient size (includes targeted exams where dose is matched to clinical indication); or iterative reconstruction. Contrast material: OMNI 350; Contrast volume: 99 ml; Contrast route: INTRAVENOUS (IV); COMPARISON: CR XR pelvis AP 12/04/2018 10:29 AM FINDINGS: Lungs: See above Liver: Unremarkable. No mass. Gallbladder and bile ducts: Unremarkable. No calcified stones. No ductal dilation. Pancreas: Unremarkable. No ductal dilation. Spleen: Unremarkable. No splenomegaly. Adrenal glands: Normal. No mass. Kidneys and ureters: Unremarkable. No hydronephrosis. Stomach and bowel: Unremarkable. No obstruction. No mucosal thickening. Appendix: No evidence of appendicitis. Intraperitoneal space: Unremarkable. No free air. No significant fluid collection. Vasculature: Unremarkable. No abdominal aortic aneurysm. Lymph nodes: Unremarkable. No enlarged lymph nodes. Urinary bladder: Unremarkable as visualized. Reproductive: Unremarkable as visualized. Bones/joints: Left total hip arthroplasty. Severe right hip osteoarthritis. Remote fractures of the inferior pubic rami and right pubic symphysis. Remote sacral Soft tissues: Large umbilical hernia containing nondilated stool-filled large bowel IMPRESSION: No evidence of acute process Dictated and Authenticated by: Tena Cameron MD. Ordering:PAULETTE Leigh MD
--- NOTE | 2023-02-25 12:04 | DI.VRAD_ITS ---
Addendum created by Kyle Pizarro MD on 02/25/2023 12:05:02 PM EDT: THIS REPORT CONTAINS FINDINGS THAT MAY BE CRITICAL TO PATIENT CARE. The findings were verbally communicated via telephone conference with JAC VAIL at 11:44 AM EDT on 02/25/2023. The findings were acknowledged and understood. Initial report created on 02/25/2023 12:03:50 PM EDT: PROCEDURE INFORMATION: Exam: CT Head Without Contrast Exam date and time: 02/25/2023 10:48 AM Age: 82 years old Clinical indication: Other: Fall, headache, neck pain TECHNIQUE: Imaging protocol: Computed tomography of the head without contrast. COMPARISON: MR BRAIN WO 02/17/2020 3:56 PM FINDINGS: Brain: There is subdural blood along the falx particularly anteriorly measuring up to 4 mm in thickness. This extends along the tentorium left more so than right. Sulcal crowding on the right with maintenance of the basilar cisterns. There is approximately 4 mm of midline shift left to right. Diffuse involutional changes are moderate for age. Cerebral ventricles: Mild compression of the left lateral ventricle. Paranasal sinuses: Polypoid thickening left maxillary sinus. Mastoid air cells: Visualized mastoid air cells are well aerated. Bones/joints: Unremarkable. No acute fracture. Soft tissues: Small amount of soft tissue swelling in the scalp posteriorly on the left. Punctate densities in the skin possibly tiny foreign bodies here. There is also acute subdural blood along the convexity measuring up to a maximum of 8 mm in thickness. IMPRESSION: Acute subdural hemorrhage with mass effect as above. PROCEDURE INFORMATION: Exam: CT Cervical Spine Without Contrast Exam date and time: 02/25/2023 10:48 AM Age: 82 years old Clinical indication: Other: Fall, headache, neck pain TECHNIQUE: Imaging protocol: Computed tomography of the cervical spine without contrast. Radiation optimization: All CT scans at this facility use at least one of these dose optimization techniques: automated exposure control; mA and/or kV adjustment per patient size (includes targeted exams where dose is matched to clinical indication); or iterative reconstruction. COMPARISON: MR BRAIN WO 02/17/2020 3:56 PM FINDINGS: Bones/joints: Age appropraite degenerative changes are present without acute fracture, worrisome malalignment, or significant compression deformity. Mild scoliosis. No high-grade central stenosis. Spinal epidural space: No epidural fluid. Prevertebral and retropharyngeal spaces: No prevertebral soft tissue swelling. Esophagus: Patulous esophagus. Lungs: Mild emphysematous changes in the lungs. Vasculature: Carotid vascular calcifications can be followed non emergently with ultrasound. Soft tissues: Unremarkable. IMPRESSION: No acutely displaced fracture. Dictated and Authenticated by: Kyle Pizarro MD. Ordering:PAULETTE Leigh MD
[2023-02-25] MEDS: cefTRIAXone 1 GM/50 ML BAG IVPB (12:38)
[2023-02-25] MEDS: levETIRAcetam 1,000 MG in Normal Saline 100 ML 400 MG IVPB (13:43)
--- NOTE | 2023-02-25 13:45 | DI.VRAD_ITS ---
PROCEDURE INFORMATION: Exam: XR Left Femur Exam date and time: 02/25/2023 1:29 PM Age: 82 years old Clinical indication: Other: Fall/ pain TECHNIQUE: Imaging protocol: Radiologic exam of the left femur. Views: 2 views. COMPARISON: CT CHEST/ABD/PEL W 02/25/2023 11:06 AM FINDINGS: Bones/joints: Intact surgical hardware in the femur. Degenerative changes at knee without acute fracture or dislocation. Soft tissues: Unremarkable. Organs: Contrast in the urinary bladder. IMPRESSION: No acute bony abnormality. Dictated and Authenticated by: Kyle Pizarro MD. Ordering:PAULETTE Leigh MD
[2023-02-25] MEDS: LORazepam 2 MG/ML VIAL 0.5 MG IVP (15:20)
--- NOTE | 2023-03-04 08:49 | NUR.NOTE ---
Nursing Note: Accessed chart to look up whether or not on antibiotic.
== END 2023-02-25 14:50 | disposition short-term general hospital (02) ==
PROVIDERS: Emergency Provider Nurse Practitioner Family
DX: I62.00 Nontraumatic subdural hemorrhage, unspecified (principal); S22.32XA Fracture of one rib, left side, initial encounter for closed fracture; R29.6 Repeated falls
CPT/HCPCS: 73552; 74177; 80053; 87077; 93005; 96361; 96365; 96367; 96368; 96375; 99291; 70450; 71260; 72125; 81003; 81015; 83735; 84484; 85025; 85610; 85730; 87086; 87186; 93010; J0131; J0696; J1953; J2060; J3490

== ENCOUNTER → 2023-03-23 03:39 | Outpatient (CLI) | payer MEDICARE, SELFPAY ==
--- NOTE | 2023-03-23 08:51 | DI.CT_ITS ---
Exam(s) CT HEAD WO EXAM: CT HEAD WO CLINICAL HISTORY: CHANGE IN SPEECH. TECHNIQUE: Imaging Protocol: Axial computed tomography images with coronal and sagittal reformatted images were created and reviewed COMPARISON: CT CT HEAD CERVICAL SPINE WO from 02/25/2023 FINDINGS: There are no skull fractures. There is no fluid in the visualized paranasal sinuses. Again noted is the abnormal left convexity extra-axial fluid collection which has the appearance of a n acute subdural hematoma on the recent CT scan of 02/25/2023. This has not decreased in size but is presently CSF density with no acute hyperdense blood. Maximum thickness is 9 mm. There is presentl y no shift of midline structures. Some mass effect upon the subjacent cortical sulci again noted but no mass effect upon the ventricular system evident. No evidence of new extra-axial nor intra-axial acute hemorrhage. No evidence of cerebellar tonsillar ectopia. IMPRESSION: The previously described left convexity subdural hematoma which was acute in appearance on 02/25/2023 now exhibits CSF density without acute hyperdense blood evident. Maximum thickness is approximately 9 mm but there is less mass effect than on the prior study. There is no blood within the ventricula r system. Presently no shift of midline structures. RADIATION DOSE DELIVERED: 678.9mGy.cm Total DLP DATA REPOSITORY: All CT scans at this facility are submitted to the National Radiology Data Registry (NRDR) Dose Index Registry (DIR) with the [employer] (ACR). RADIATION OPTIMIZATION: All CT scans at this facility use at least one of these dose optimization te chniques: automated exposure control; mA and/or kV adjustment per patient size (includes targeted exa ms where dose is matched to clinical indication); or iterative reconstruction.
== END ==
PROVIDERS: Visit Provider Physician Assistant
DX: R47.89 Other speech disturbances (principal)
CPT/HCPCS: 70450

== ENCOUNTER 2023-04-14 15:03 | Outpatient (REF) | payer MEDICARE, SELFPAY ==
[2023-04-14 16:47] LABS: Abs Immature Grans 0.03 10^3/uL (0.0-0.06); Absolute Basophil Count 0.06 10^3/uL (0.0-0.2); Absolute Eosinophil Count 0.13 10^3/uL (0.0-0.7); Absolute Lymphocyte Count 1.38 10^3/uL (1.2-3.4); Absolute Neutrophil Count 4.49 10^3/uL (1.2-6.7); Basophils % 0.9; Eosinophils % 1.9; HCT 33.5 % (36.0-46.0); HGB 10.5 g/dL (11.2-15.7); Immature Grans % 0.4; Lymphocytes % 19.7; MCH 29.2 pg (27.0-33.0); MCHC 31.3 % (32.0-36.0); MCV 93 fL (80-95); Monocytes % 12.9; Neutrophils % 64.2; Platelet Count 231 10^3/uL (130-400); RDW 13.5 % (11.7-14.6); RDW-SD 46.5 fL; WBC 6.99 10^3/uL (4.4-10.8)
[2023-04-14 21:46] LABS: Valproic Acid 59 ug/mL (50-100)
== END 2023-04-14 15:04 | disposition home or self-care (01) ==
LOC: LBN 15:03
PROVIDERS: Visit Provider Family Medicine
DX: F41.1 Generalized anxiety disorder (principal); Z79.899 Other long term (current) drug therapy; Z51.81 Encounter for therapeutic drug level monitoring
CPT/HCPCS: 80164; 85025

== ENCOUNTER 2023-05-01 15:11 | Outpatient (REF) | payer MEDICARE, SELFPAY ==
[2023-05-01 14:21] LABS: Abs Immature Grans 0.02 10^3/uL (0.0-0.06); Absolute Basophil Count 0.05 10^3/uL (0.0-0.2); Absolute Eosinophil Count 0.36 10^3/uL (0.0-0.7); Absolute Lymphocyte Count 1.38 10^3/uL (1.2-3.4); Absolute Monocyte Count 0.72 10^3/uL (0.1-0.8); Absolute Neutrophil Count 2.44 10^3/uL (1.2-6.7); Eosinophils % 7.2; HCT 31.5 % (36.0-46.0); HGB 10.1 g/dL (11.2-15.7); Immature Grans % 0.4; Lymphocytes % 27.8; MCH 29.2 pg (27.0-33.0); MCHC 32.1 % (32.0-36.0); MCV 91 fL (80-95); MPV 8.7 fL (8.0-11.0); Monocytes % 14.5; Neutrophils % 49.1; Platelet Count 220 10^3/uL (130-400); RBC 3.46 10^6/uL (3.93-5.22); RDW 13.4 % (11.7-14.6); RDW-SD 45.2 fL; WBC 4.97 10^3/uL (4.4-10.8)
[2023-05-01 14:35] LABS: VALPROIC ACID 41.5 ug/mL
[2023-05-01 14:36] LABS: ALT 14 U/L (14-59); AST 12 U/L (15-37); Albumin 2.7 g/dL (3.4-5.0); Alkaline Phosphatase 83 U/L (46-116); Anion Gap 5.5 mmol/L (3-11); BUN 7 mg/dL (7-18); Bilirubin, Total 0.4 mg/dL (0.2-1.0); CO2 29.5 mmol/L (21.0-32.0); CREATININE 0.6 mg/dL (0.55-1.02); Calcium 9.1 mg/dL (8.5-10.1); Chloride 102 mmol/L (98-107); Estimated GFR 89.01 (mL/min/1.73m2); Glucose 142 mg/dL (74-106); Potassium 4.1 mmol/L (3.5-5.1); Sodium 137 mmol/L (136-145); Total Protein 5.8 g/dL (6.4-8.2)
== END 2023-05-01 15:12 | disposition home or self-care (01) ==
LOC: LBN 15:11
PROVIDERS: Visit Provider Family Medicine
DX: M62.81 Muscle weakness (generalized) (principal)
CPT/HCPCS: 80053; 80164; 85025

== ENCOUNTER → 2023-05-24 00:39 | Outpatient (CLI) | payer MEDICARE, SELFPAY ==
--- NOTE | 2023-05-24 | DI.CT_ITS ---
Exam(s) CT HEAD WO EXAM: CT HEAD WO CLINICAL HISTORY: F/U SUBDURAL HEMATOMA, ,F/U 03/23/23,[id number]. TECHNIQUE: Imaging Protocol: Axial computed tomography images with coronal and sagittal reformatted images were created and reviewed COMPARISON: CT CT HEAD WO from 03/23/2023 FINDINGS: Ventricles and Extra axial spaces: Normal in size and morphology for the patient's age. Hemorrhage: None. Cerebral parenchyma: There are areas of decreased attenuation in the white matter consistent with sma ll vessel ischemic disease. Midline shift: None. Brainstem/Cerebellum: Normal. Calvarium: Normal. Visualized Paranasal sinuses/Mastoids: There is mucosal thickening in the left maxillary sinus. Ther e is mild mucosal thickening in the left ethmoid air cells. The remaining visualized paranasal sinus es and mastoid air cells are clear. Soft Tissues: Unremarkable. IMPRESSION: 1. No acute intracranial process. 2. Resolution of the previously seen left subdural hematoma. RADIATION DOSE DELIVERED: Total DLP DATA REPOSITORY: All CT scans at this facility are submitted to the National Radiology Data Registry (NRDR) Dose Index Registry (DIR) with the [employer] (ACR). RADIATION OPTIMIZATION: All CT scans at this facility use at least one of these dose optimization te chniques: automated exposure control; mA and/or kV adjustment per patient size (includes targeted exa ms where dose is matched to clinical indication); or iterative reconstruction.
== END ==
PROVIDERS: Visit Provider Nurse Practitioner Acute Care
DX: S06.5XAD Traumatic subdural hemorrhage with loss of consciousness status unknown, subsequent encounter (principal); X58.XXXD Exposure to other specified factors, subsequent encounter
CPT/HCPCS: 70450

== ENCOUNTER 2023-06-10 16:08 | Outpatient (REF) | payer SELFPAY ==
[2023-06-10 16:21] LABS: Bilirubin Negative (Negative); Blood Trace-intact (Negative); Clarity Cloudy (Clear); Glucose Negative (Negative); Ketones Negative (Negative); Leukocyte Esterase Large (Negative); Nitrite Positive (Negative); Specific Gravity 1.015 (1.005-1.025); Urobilinogen 0.2 mg/dL (Up to 0.2)
[2023-06-10 16:28] LABS: C & S Indicated? C&S Done As Ordered; WBC >50 HPF (0-5)
== END 2023-06-10 16:09 | disposition home or self-care (01) ==
LOC: LBN 16:08
PROVIDERS: Visit Provider Nurse Practitioner Adult Health
DX: R29.6 Repeated falls (principal)
CPT/HCPCS: 87077; 81003; 81015; 87086; 87186

== ENCOUNTER → 2023-06-29 13:16 | Outpatient (BNVA) | payer MEDICARE, SELFPAY | PROVIDERS: Visit Provider Student in an Organized Health Care Education/Training Program | DX: M16.11 Unilateral primary osteoarthritis, right hip (principal) | CPT/HCPCS: 20611; 99214; J1040 ==

== ENCOUNTER 2023-09-01 17:33 | Outpatient (REF) | payer MEDICARE, SELFPAY ==
[2023-09-01 17:45] LABS: Bilirubin Negative (Negative); Blood Trace-intact (Negative); Clarity Clear (Clear); Glucose Negative (Negative); Ketones Negative (Negative); Leukocyte Esterase Moderate (Negative); Nitrite Negative (Negative); Urobilinogen 0.2 mg/dL (Up to 0.2)
[2023-09-01 17:54] LABS: Bacteria Many HPF (Negative); C & S Indicated? Yes; Crystals Negative HPF (Negative); Epithelial Cells Rare HPF (Negative); Mucus Trace (Negative); RBC 0-2 HPF (0-2); WBC 20-50 HPF (0-5)
== END 2023-09-01 17:34 | disposition home or self-care (01) ==
LOC: LBN 17:33
PROVIDERS: Visit Provider Family Medicine
DX: R30.0 Dysuria (principal); B96.29 Other Escherichia coli [E. coli] as the cause of diseases classified elsewhere
CPT/HCPCS: 87077; 81003; 81015; 87086; 87186

== ENCOUNTER 2023-09-12 17:49 | Outpatient (REF) | payer MEDICARE, SELFPAY ==
[2023-09-12 17:37] LABS: Abs Immature Grans 0.02 10^3/uL (0.0-0.06); Absolute Basophil Count 0.04 10^3/uL (0.0-0.2); Absolute Lymphocyte Count 1.59 10^3/uL (1.2-3.4); Absolute Monocyte Count 0.54 10^3/uL (0.1-0.8); Absolute Neutrophil Count 2.64 10^3/uL (1.2-6.7); Basophils % 0.8; HGB 12.4 g/dL (11.2-15.7); Immature Grans % 0.4; Lymphocytes % 32.3; MCHC 32.6 % (32.0-36.0); MCV 92 fL (80-95); MPV 8.8 fL (8.0-11.0); Neutrophils % 53.5; Platelet Count 233 10^3/uL (130-400); RBC 4.13 10^6/uL (3.93-5.22); RDW 12.8 % (11.7-14.6); WBC 4.93 10^3/uL (4.4-10.8)
[2023-09-12 17:58] LABS: VALPROIC ACID < 3 ug/mL
[2023-09-12 18:04] LABS: ALT 22 U/L (14-59); AST 16 U/L (15-37); Albumin 3.9 g/dL (3.4-5.0); Alkaline Phosphatase 110 U/L (46-116); BUN 14 mg/dL (7-18); Bilirubin, Total 0.4 mg/dL (0.2-1.0); CREATININE 0.9 mg/dL (0.55-1.02); Calcium 9.4 mg/dL (8.5-10.1); Chloride 101 mmol/L (98-107); Estimated GFR 63.04 (mL/min/1.73m2); Glucose 122 mg/dL (74-106); Potassium 4.4 mmol/L (3.5-5.1); Sodium 138 mmol/L (136-145); Total Protein 7.1 g/dL (6.4-8.2)
== END 2023-09-12 17:50 | disposition home or self-care (01) ==
LOC: LBN 17:49
PROVIDERS: Visit Provider Family Medicine
DX: D64.9 Anemia, unspecified (principal); F43.23 Adjustment disorder with mixed anxiety and depressed mood; Z51.81 Encounter for therapeutic drug level monitoring; Z79.899 Other long term (current) drug therapy
CPT/HCPCS: 80053; 80164; 85025

== ENCOUNTER 2023-10-31 16:50 | Outpatient (REF) | payer MEDICARE, SELFPAY ==
[2023-10-31 16:01] LABS: Abs Immature Grans 0.03 10^3/uL (0.0-0.06); Absolute Basophil Count 0.03 10^3/uL (0.0-0.2); Absolute Eosinophil Count 0.22 10^3/uL (0.0-0.7); Absolute Lymphocyte Count 1.28 10^3/uL (1.2-3.4); Absolute Monocyte Count 0.54 10^3/uL (0.1-0.8); Absolute Neutrophil Count 4.97 10^3/uL (1.2-6.7); Basophils % 0.4; Eosinophils % 3.1; HCT 35.4 % (36.0-46.0); HGB 11.4 g/dL (11.2-15.7); Immature Grans % 0.4; Lymphocytes % 18.1; MCH 29.3 pg (27.0-33.0); MCHC 32.2 % (32.0-36.0); MCV 91 fL (80-95); Monocytes % 7.6; Neutrophils % 70.4; Platelet Count 171 10^3/uL (130-400); RBC 3.89 10^6/uL (3.93-5.22); RDW 12.8 % (11.7-14.6); RDW-SD 41.7 fL; WBC 7.07 10^3/uL (4.4-10.8)
[2023-10-31 16:02] LABS: Bilirubin Negative (Negative); Blood Negative (Negative); Clarity Sl Cloudy (Clear); Glucose Negative (Negative); Ketones Negative (Negative); Leukocyte Esterase Negative (Negative); Nitrite Negative (Negative); Specific Gravity 1.015 (1.005-1.025); Urobilinogen 0.2 mg/dL (Up to 0.2)
[2023-10-31 16:19] LABS: ALT 18 U/L (14-59); AST 13 U/L (15-37); Albumin 3.8 g/dL (3.4-5.0); Alkaline Phosphatase 106 U/L (46-116); Anion Gap 7.1 mmol/L (3-11); BUN 14 mg/dL (7-18); Bilirubin, Total 0.3 mg/dL (0.2-1.0); CO2 31.9 mmol/L (21.0-32.0); CREATININE 0.8 mg/dL (0.55-1.02); Calcium 9.3 mg/dL (8.5-10.1); Chloride 104 mmol/L (98-107); Estimated GFR 72.61 (mL/min/1.73m2); Glucose 83 mg/dL (74-106); Potassium 4.1 mmol/L (3.5-5.1); Sodium 143 mmol/L (136-145)
[2023-11-02 12:12] LABS: Lamotrigine 3.3 mcg/mL (3.0-15.0)
== END 2023-10-31 16:51 | disposition home or self-care (01) ==
LOC: NCHCN 16:50
PROVIDERS: PCP Nurse Practitioner Family; Visit Provider Nurse Practitioner Family
DX: R32 Unspecified urinary incontinence (principal); B96.29 Other Escherichia coli [E. coli] as the cause of diseases classified elsewhere
CPT/HCPCS: 80053; 80175; 81003; 85025

== ENCOUNTER 2023-12-08 12:35 | Outpatient (REF) | payer MEDICARE, SELFPAY ==
[2023-12-08 15:17] LABS: Bilirubin Negative (Negative); Blood Negative (Negative); Clarity Clear (Clear); Glucose Negative (Negative); Ketones Negative (Negative); Leukocyte Esterase Trace (Negative); Nitrite Negative (Negative); Urobilinogen 0.2 mg/dL (Up to 0.2)
[2023-12-08 15:29] LABS: Bacteria Rare HPF (Negative); C & S Indicated? No; Casts Negative LPF (Negative); Crystals Negative HPF (Negative); Epithelial Cells Few HPF (Negative); Mucus Negative (Negative); RBC Negative HPF (0-2); WBC 0-2 HPF (0-5)
== END 2023-12-08 12:36 | disposition home or self-care (01) ==
LOC: NCHCN 12:35
PROVIDERS: PCP Nurse Practitioner Family; Visit Provider Nurse Practitioner Family
DX: R32 Unspecified urinary incontinence (principal)
CPT/HCPCS: 81003; 81015

== ENCOUNTER → 2023-12-28 00:08 | Outpatient (CLI) | payer MEDICARE, SELFPAY ==
--- NOTE | 2023-12-28 14:50 | DI.CT_ITS ---
Exam(s) CT HEAD WO EXAM: CT HEAD WO CLINICAL HISTORY: HX DISEASE OF CIRCULATORY SYSTEM Z86.79 HX SUBDURAL HEMATOMA. TECHNIQUE: Imaging Protocol: Axial computed tomography images with coronal and sagittal reformatted images were created and reviewed COMPARISON: CT CT HEAD WO from 03/23/[address] HEAD WO from 05/24/2023 FINDINGS: Ventricles and Extra axial spaces: Normal in size and morphology for the patient's age. Hemorrhage: None. Cerebral parenchyma: There are areas of decreased attenuation in the white matter consistent with chr onic microvascular ischemic disease. No acute mass effect is identified. Midline shift: None. Brainstem/Cerebellum: Normal. Calvarium: Normal. Visualized Paranasal sinuses/Mastoids: Clear. Soft Tissues: Unremarkable. IMPRESSION: No acute intracranial process. RADIATION DOSE DELIVERED: Total DLP DATA REPOSITORY: All CT scans at this facility are submitted to the National Radiology Data Registry (NRDR) Dose Index Registry (DIR) with the [employer] (ACR). RADIATION OPTIMIZATION: All CT scans at this facility use at least one of these dose optimization te chniques: automated exposure control; mA and/or kV adjustment per patient size (includes targeted exa ms where dose is matched to clinical indication); or iterative reconstruction.
== END ==
PROVIDERS: PCP Nurse Practitioner Family; Visit Provider Nurse Practitioner Family
DX: I67.82 Cerebral ischemia
CPT/HCPCS: 70450

== ENCOUNTER 2024-01-22 18:33 | Outpatient (REF) | payer MEDICARE, SELFPAY ==
[2024-01-22 21:45] LABS: Bilirubin Negative (Negative); Blood Negative (Negative); Clarity Clear (Clear); Glucose Negative (Negative); Ketones Negative (Negative); Leukocyte Esterase Trace (Negative); Nitrite Negative (Negative); Specific Gravity 1.015 (1.005-1.025); Urobilinogen 0.2 mg/dL (Up to 0.2); pH 6.5 (5-8)
[2024-01-22 21:57] LABS: Bacteria Negative HPF (Negative); C & S Indicated? No; Crystals Negative HPF (Negative); Epithelial Cells Rare HPF (Negative); Mucus Negative (Negative); RBC Negative HPF (0-2); WBC 0-2 HPF (0-5)
== END 2024-01-22 18:34 | disposition home or self-care (01) ==
LOC: NCHCN 18:33
PROVIDERS: PCP Nurse Practitioner Family; Visit Provider Nurse Practitioner Family
DX: R32 Unspecified urinary incontinence (principal)
CPT/HCPCS: 81003; 81015

== ENCOUNTER → 2024-02-06 12:46 | Outpatient (BNVA) | payer MEDICARE, SELFPAY | PROVIDERS: PCP Nurse Practitioner Family; Referring Provider Nurse Practitioner Family; Visit Provider Podiatrist | DX: B35.1 Tinea unguium (principal); L60.3 Nail dystrophy; M79.671 Pain in right foot | CPT/HCPCS: 11720; 99214 ==

== ENCOUNTER → 2024-02-08 00:59 | Outpatient (CLI) | payer MEDICARE, SELFPAY ==
--- NOTE | 2024-02-08 | DI.CT_ITS ---
Exam(s) CT HEAD WO EXAM: CT HEAD WO CLINICAL HISTORY: M62.81 Muscle weakness (generalized). TECHNIQUE: Imaging Protocol: Axial computed tomography images with coronal and sagittal reformatted images were created and reviewed COMPARISON: CT CT HEAD WO from 12/28/2023 FINDINGS: Ventricles and Extra axial spaces: Normal in size and morphology for the patient's age. Hemorrhage: None. Cerebral parenchyma: There are areas of decreased attenuation in the white matter consistent with chr onic microvascular ischemic disease. Midline shift: None. Brainstem/Cerebellum: Normal. Calvarium: Normal. Visualized Paranasal sinuses/Mastoids: Mucous retention cysts are seen in the maxillary sinuses bilat erally. Soft Tissues: Unremarkable. IMPRESSION: 1. Finding of age-related cerebral atrophy and small vessel ischemic disease. 2. No acute intracranial process. RADIATION DOSE DELIVERED: Total DLP DATA REPOSITORY: All CT scans at this facility are submitted to the National Radiology Data Registry (NRDR) Dose Index Registry (DIR) with the [employer] (ACR). RADIATION OPTIMIZATION: All CT scans at this facility use at least one of these dose optimization te chniques: automated exposure control; mA and/or kV adjustment per patient size (includes targeted exa ms where dose is matched to clinical indication); or iterative reconstruction.
== END ==
PROVIDERS: PCP Nurse Practitioner Family; Visit Provider Nurse Practitioner Family
DX: M62.81 Muscle weakness (generalized) (principal); G31.89 Other specified degenerative diseases of nervous system; I67.82 Cerebral ischemia
CPT/HCPCS: 36415; 82550; 70450; 82728; 83540; 83550; 85025

== ENCOUNTER 2024-02-08 02:37 | Outpatient (CLI) | payer MEDICARE, SELFPAY ==
[2024-02-08 12:25] LABS: Abs Immature Grans 0.01 10^3/uL (0.0-0.06); Absolute Basophil Count 0.02 10^3/uL (0.0-0.2); Absolute Eosinophil Count 0.26 10^3/uL (0.0-0.7); Absolute Lymphocyte Count 1.25 10^3/uL (1.2-3.4); Absolute Monocyte Count 0.45 10^3/uL (0.1-0.8); Absolute Neutrophil Count 3.77 10^3/uL (1.2-6.7); Basophils % 0.3 %; Eosinophils % 4.5 %; HCT 36.7 % (36.0-46.0); HGB 12.1 g/dL (11.2-15.7); Immature Grans % 0.2 %; Lymphocytes % 21.7 %; MCH 29.4 pg (27.0-33.0); MCV 89 fL (80-95); MPV 8.6 fL (8.0-11.0); Monocytes % 7.8 %; Neutrophils % 65.5 %; Platelet Count 165 10^3/uL (130-400); RBC 4.11 10^6/uL (3.93-5.22); RDW 12.8 % (11.7-14.6); RDW-SD 41.5 fL; WBC 5.76 10^3/uL (4.4-10.8)
[2024-02-08 12:48] LABS: Iron 64 ug/dL (50-170); Total Iron Binding Capacity 251 ug/dL (250-450); Transferrin Sat 25 % (15-50)
[2024-02-08 13:17] LABS: Ferritin 129 ng/mL (8-252)
[2024-02-08 13:29] LABS: Creatine Kinase 29 U/L (26-192)
== END 2024-02-08 02:38 | disposition home or self-care (01) ==
PROVIDERS: PCP Nurse Practitioner Family; Visit Provider Nurse Practitioner Family
DX: D64.9 Anemia, unspecified (principal); F41.9 Anxiety disorder, unspecified; R41.82 Altered mental status, unspecified
CPT/HCPCS: 36415; 80053; 82306; 82550; 82728; 83540; 83550; 84443; 85025

== ENCOUNTER 2024-02-11 20:51 | Observation (INO) | payer MEDICARE, SELFPAY ==
--- NOTE | 2024-02-11 00:21 | DI.CT_ITS ---
Exam(s) CT BRAIN NECK CTA EXAM: CT BRAIN NECK CTA CLINICAL HISTORY: ams, speech change. TECHNIQUE: Imaging Protocol: Axial CT angiography was performed with multi-slice acquisition and mu lti-planar and MIP reconstructions. CONTRAST MATERIAL: Intravenous: Omnipaque 350 Contrast volume:100 ml COMPARISON: CT CT HEAD WO from 02/11/2024 FINDINGS: CT Head W/O and W contrast: Ventricles and Extra axial spaces: Normal in size and morphology for the patient's age. Hemorrhage: None. Cerebral parenchyma: No evidence of acute infarct or mass. Mild atrophy. Mild white matter changes of small vessel disease. Midline shift: None. Brainstem/Cerebellum: No acute findings.. Calvarium: Normal. Visualized Paranasal sinuses/Mastoids: Clear. Soft Tissues: Unremarkable. Enhancement: Normal. CTA Brain W: Internal Carotid Arteries: Petrous: Normal. Cavernous: Calcification causing minimal stenosis on the right. [id number] stenosis on the lef t. Cerebral: Normal. Middle Cerebral Arteries: Right: No aneurysm, occlusion or significant stenosis. Left: No aneurysm, occlusion or significant stenosis. Anterior Cerebral Arteries: Right: No aneurysm, occlusion or significant stenosis. Left: No aneurysm, occlusion or significant stenosis. Posterior cerebral Arteries: Right: No aneurysm, occlusion or significant stenosis. Left: No aneurysm, occlusion or significant stenosis. Vertebral Arteries: Right: No aneurysm, occlusion or significant stenosis. Left: No aneurysm, occlusion or significant stenosis. Basilar Artery: No aneurysm, occlusion or significant stenosis. CTA Neck W: Common Carotid: Minimal plaque at bulb. Right: No dissection, occlusion or significant stenosis. Left: No dissection, occlusion or significant stenosis. External Carotid: Right: No dissection, occlusion or significant stenosis. Left: No dissection, occlusion or significant stenosis. Internal Carotid: Right: No dissection, occlusion or significant stenosis. Left: No dissection, occlusion or significant stenosis. Vertebral Artery: Right: No dissection, occlusion or significant stenosis. Left: No dissection, occlusion or significant stenosis. Lung Apices: No acute findings. Bones: No acute abnormality. Soft Tissues: Normal. IMPRESSION: 1. CTA brain: Calcification within the cavernous portions of the internal carotid arteries causing mi nimal stenosis on right and [id number] stenosis on left. 2. Head CT: Mild atrophy and white matter changes of small vessel disease. 3. CTA neck: Minimal plaque at the common carotid bulbs. No evidence of significant stenosis or diss ection. RADIATION DOSE DELIVERED: Total DLP DATA REPOSITORY: All CT scans at this facility are submitted to the National Radiology Data Registry (NRDR) Dose Index Registry (DIR) with the [employer] (ACR). RADIATION OPTIMIZATION: All CT scans at this facility use at least one of these dose optimization te chniques: automated exposure control; mA and/or kV adjustment per patient size (includes targeted exa ms where dose is matched to clinical indication); or iterative reconstruction.
--- NOTE | 2024-02-11 20:45 | DI.CT_ITS ---
Exam(s) CT HEAD WO EXAM: CT HEAD WO CLINICAL HISTORY: ams. TECHNIQUE: Imaging Protocol: Axial computed tomography images with coronal and sagittal reformatted images were created and reviewed COMPARISON: CT CT HEAD WO from 02/08/2024 FINDINGS: Ventricles and Extra axial spaces: Normal in size and morphology for the patient's age. Hemorrhage: None. Cerebral parenchyma: No evidence of acute infarct or mass. White matter changes of small vessel dis ease. Atrophy. Midline shift: None. Brainstem/Cerebellum: Normal. Calvarium: Normal. Visualized Paranasal sinuses:Clear. Mastoids: Clear. Soft Tissues: Unremarkable. ORBITS: Right cataract surgery. PITUITARY: Not enlarged. IMPRESSION: No acute intracranial process. RADIATION DOSE DELIVERED: Total DLP DATA REPOSITORY: All CT scans at this facility are submitted to the National Radiology Data Registry (NRDR) Dose Index Registry (DIR) with the [employer] (ACR). RADIATION OPTIMIZATION: All CT scans at this facility use at least one of these dose optimization te chniques: automated exposure control; mA and/or kV adjustment per patient size (includes targeted exa ms where dose is matched to clinical indication); or iterative reconstruction.
--- NOTE | 2024-02-11 20:45 | RT.EKG_ITS ---
APPROVED REPORT Exam: Resting ECG Reason for Exam: stroke like sx Patient Location: E HR:73 bpm ECG Measurements Heart Rate 73 AXIS NV 174 P 49 QRSd 93 QRS -19 QT 385 T 9 QTc 424 Conclusion Sinus rhythm 73 no stemi
--- NOTE | 2024-02-11 21:29 | DI.VRAD_ITS ---
PROCEDURE INFORMATION: Exam: CT Head Without Contrast Exam date and time: 02/11/2024 9:04 PM Age: 83 years old Clinical indication: Stroke-like symptoms; Other: AMS TECHNIQUE: Imaging protocol: Computed tomography of the head without contrast. Radiation optimization: All CT scans at this facility use at least one of these dose optimization techniques: automated exposure control; mA and/or kV adjustment per patient size (includes targeted exams where dose is matched to clinical indication); or iterative reconstruction. Other technique: STROKE PROTOCOL was implemented. COMPARISON: CT HEAD WO 02/08/2024 11:14 AM FINDINGS: Generalized volume loss and periventricular white matter hypodensity consistent with chronic small vessel ischemic change. There is atherosclerotic calcification in the internal carotid and distal vertebral arteries . There is no evidence of intraparenchymal hemorrhage, mass effect or extra-axial collection. Ventricular size is concordant with degree of volume loss. Right cataract surgery. Left orbit is unremarkable. The The sinuses are well-aerated. IMPRESSION: No acute intracranial process. ASSESSMENT: ASPECTS (Joanne Stroke Program Early CT Score) is 10. Dictated and Authenticated by: Shabnam Jama MD. Ordering:GILBERTO Collazo MD
[2024-02-11 21:31] VITALS: BP 150/70; PULSE 84; RESP 16; TEMP 36.4; O2SAT 98
[2024-02-11 21:35] VITALS: RESP 16
[2024-02-11 21:36] LABS: Abs Immature Grans 0.03 10^3/uL (0.0-0.06); Absolute Basophil Count 0.04 10^3/uL (0.0-0.2); Absolute Eosinophil Count 0.33 10^3/uL (0.0-0.7); Absolute Lymphocyte Count 2.19 10^3/uL (1.2-3.4); Absolute Monocyte Count 0.57 10^3/uL (0.1-0.8); Absolute Neutrophil Count 3.76 10^3/uL (1.2-6.7); Basophils % 0.6 %; Eosinophils % 4.8 %; HCT 38.1 % (36.0-46.0); HGB 12.4 g/dL (11.2-15.7); Immature Grans % 0.4 %; Lymphocytes % 31.6 %; MCH 29.7 pg (27.0-33.0); MCHC 32.5 % (32.0-36.0); MCV 91 fL (80-95); MPV 8.7 fL (8.0-11.0); Monocytes % 8.2 %; Neutrophils % 54.4 %; Platelet Count 167 10^3/uL (130-400); RBC 4.18 10^6/uL (3.93-5.22); RDW 12.6 % (11.7-14.6); RDW-SD 41.6 fL; WBC 6.92 10^3/uL (4.4-10.8)
[2024-02-11 21:44] LABS: Bilirubin Negative (Negative); Blood Negative (Negative); Clarity Clear (Clear); Glucose Negative (Negative); Ketones Negative (Negative); Leukocyte Esterase Small (Negative); Nitrite Negative (Negative); Specific Gravity 1.015 (1.005-1.025); Urobilinogen 0.2 mg/dL (Up to 0.2); pH 6.5 (5-8)
[2024-02-11 21:51] LABS: Bacteria Negative HPF (Negative); Crystals Negative HPF (Negative); Epithelial Cells Moderate HPF (Negative); Mucus Moderate (Negative); Other Cells Rare Renal (Negative); RBC Negative HPF (0-2)
[2024-02-11 21:52] LABS: C & S Indicated? No/Sq. Contamination; Casts 0-2 Hyaline LPF (Negative)
[2024-02-11 22:06] LABS: ALT 19 U/L (14-59); AST 10 U/L (15-37); Alkaline Phosphatase 90 U/L (46-116); Anion Gap 6.2 mmol/L (3-11); BUN 17 mg/dL (7-18); Bilirubin, Total 0.35 mg/dL (0.2-1.0); CO2 30.8 mmol/L (21.0-32.0); CREATININE 0.9 mg/dL (0.55-1.02); Calcium 9.3 mg/dL (8.5-10.1); Chloride 103 mmol/L (98-107); Estimated GFR 63.04 (mL/min/1.73m2); Glucose 105 mg/dL (74-106); Magnesium 2.3 mg/dL (1.8-2.4); Potassium 3.6 mmol/L (3.5-5.1); Sodium 140 mmol/L (136-145); TSH (W/Ref FT4) 5.29 uIU/mL (0.36-3.74); Total Protein 7.5 g/dL (6.4-8.2); Troponin I < 50 ng/L (< or =60)
[2024-02-11] MEDS: Aspirin 325 MG TAB PO (22:42)
--- NOTE | 2024-02-11 23:10 | HPE_ITS ---
Date of service: 02/11/24 Time of Service: 23:10 Assessment and Plan Assessment and plan (1) TIA (transient ischemic attack): Status: Acute Assessment and plan: - Suspicion for TIA given symptoms brief periods of altered mental status -CT head with CT angio neck negative in the emergency department -Follow-up MRI echocardiogram today -Continue aspirin -Start high-dose statin (2) Dementia: Status: Chronic Assessment and plan: - Continue home buspirone, clonazepam, Lamictal, mirtazapine (3) Depressive disorder: Status: Chronic History of Present Illness History of Present Illness Chief Complaint: AMS Narrative: 83-year-old female with past medical history of hypertension, GERD, dementia, depression and anxiety presents to the emergency department with altered mental status. Patient had reportedly been receiving her evening medications when her caregiver walked out of the room briefly and upon her return roughly 2 minutes later noted the patient was unresponsive and drooling. She attempted to wake the patient for about 15 to 20 minutes after which time the patient became alert with some slurred speech that lasted for several seconds and then resolved. While it is noted the patient does have some baseline xerostomia secondary to her medication, her caregiver states that this is different than usual. Apparently a similar episode happened about a week ago but her primary care physician had ordered a CT scan of the outpatient and did not find any acute findings and recommended that if it occurred again that she present to the emergency department. Upon arrival to the emergency department she denies any headache, lightheadedness and a fever, nausea, vomiting diarrhea, or constipation. In the emergency department the patient was noted as having normal vital signs, normal physical exam, normal CBC and CMP. EKG was unremarkable, and head CT with CTA neck did not show any acute findings. While the emergency department patient was given 124 mg of aspirin and started on Plavix at which time emergency room PA paged hospitalist for admission for patient with TIA would require further investigation including MRI and echocardiogram. Review of Systems All systems reviewed & are unremarkable except as noted in HPI and below PFSH All Active Problems (Updated 02/12/24 @ 06:35 by Jose Solis MD) Dementia (Chronic) TIA (transient ischemic attack) (Acute) Pain in right foot (Acute) Nail dystrophy (Acute) Hemorrhoids (Acute) Anemia (Chronic) Diplopia (Acute) Urinary incontinence (Acute) Intertrigo (Acute) Onychomycosis (Acute) Abnormal gait (Acute) Essential hypertension (Chronic) Hyperlipidemia (Chronic) Depressive disorder (Chronic) Followed by [facility] Psychiatry Generalized anxiety disorder (Chronic) Vitamin B12 deficiency (Chronic) Insomnia (Chronic) PSG 04/2020 with no sleep apnea but PLMD Osteopenia (Chronic) PLMD (periodic limb movement disorder) (Chronic) PSG 04/2020 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 Day Family History Mother , at 95 Essential hypertension Depression Heart disease Colon cancer Father , Heart attack at age 91. Depression Myocardial infarction Heart disease Hypertension Son Hypertension Maternal Grandfather , at 72 Heart disease Maternal Grandmother , at 58 Colon cancer Paternal Grandfather Heart disease Paternal Grandmother Heart disease Hypertension Social History Smoking/Tobacco Use Status: Never Smoking risk assessment performed?: Yes Alcohol Intake: former Drug use: Never Substance use type: does not use Housing: assisted living facility Duration: 15-30 minutes/day Frequency: 3-4 times per week Emmie/Uatsdin: Mandaen Special emmie needs: No Do you feel safe at home: Yes Do you feel safe in your relationship?: Yes Additional Social history: Patient Lives at [facility] History History 2 1 Para 1 Hx # Term Pregnancies Multiple births Hx # Pregnancies Ectopic pregnancies AB induced Hx Number of Living Children 1 AB spontaneous Meds Allergies and Home Medications Allergies Allergy/AdvReac Type Severity Reaction Status Date / Time adhesive Allergy Intermediate SKIN RASH Verified 01/15/24 15:35 atenolol Allergy Intermediate SHORTNESS Verified 01/15/24 15:35 OF BREATH Echinacea AdvReac Intermediate NAUSEA/VOMI Verified 01/15/24 15:35 TING mushroom AdvReac Mild Nausea Verified 01/15/24 15:35 lisinopril AdvReac Unknown ANXIOUS Verified 01/15/24 15:35 pseudoephedrine AdvReac Unknown ANXIOUS Verified 01/15/24 15:35 caffeine AdvReac shaky if Verified 01/15/24 15:35 >1 cup/day citalopram AdvReac ANXIETY Verified 01/15/24 15:35 inverted sugar AdvReac make Verified 01/15/24 15:35 nervous shellfish derived AdvReac NAUSEA/VOMI Verified 01/15/24 15:35 TING NUT FLAVOR Allergy HIVES Uncoded 01/15/24 15:35 Home Medications ?Medication ?Instructions ?Recorded ?Confirmed ?Type ascorbic acid (vitamin C) 500 mg 500 mg PO DAILY 04/04/14 02/12/24 History tablet (Vitamin C With Erin Hips) acetaminophen 500 mg tablet 500 mg PO BID 02/25/23 02/12/24 History fluticasone propionate 50 1 spray intranasal DAILY 02/25/23 02/12/24 History mcg/actuation nasal spray,suspension vitamins A,C,V-prox-vmztrq 2,148 1 tab PO DAILY 02/25/23 02/12/24 History mcg-113 mg-45 mg-17.4 mg tablet (PreserVision AREDS) buspirone 5 mg tablet 5 mg PO HS 12/20/23 02/12/24 History buspirone 7.5 mg tablet 7.5 mg PO BID 12/20/23 02/12/24 History clonazepam 0.5 mg tablet 0.5 mg PO TID 12/20/23 02/12/24 History cyanocobalamin (vitamin B-12) 500 1,000 mcg PO DAILY 12/20/23 02/12/24 History mcg tablet (Vitamin B-12) lamotrigine 25 mg tablet 25 mg PO BID 12/20/23 02/12/24 History magnesium oxide 400 mg PO DAILY 12/20/23 02/12/24 History melatonin 5 mg tablet 5 mg PO HS PRN 12/20/23 02/12/24 History mirtazapine 15 mg tablet 15 mg PO DAILY 12/20/23 02/12/24 History mcidrrjo-nxg-agxru acid 0.4 1 tab PO DAILY 12/20/23 02/12/24 History mg-lycopene 300 mcg-lutein 250 mcg tablet (Centrum Silver) ropinirole 0.5 mg tablet 0.5 mg PO QHS 12/20/23 02/12/24 History sennosides 8.6 mg tablet (Senna 8.6 mg PO DAILY 12/20/23 02/12/24 History Lax) trazodone 100 mg tablet 100 mg PO QHS PRN 12/20/23 02/12/24 History mirtazapine 7.5 mg tablet 7.5 mg PO QHS 01/15/24 02/12/24 History ketoconazole 2 % topical cream 1 applic topical DAILY #120 grams 02/06/24 02/12/24 Rx Exam Narrative Exam Narrative: Elderly female laying in bed in no acute distress, ANO x 4, heart regular rhythm, lungs clear to auscultation bilaterally, abdomen soft, nontender, nondistended, PERRLA, EOMI, normal strength and sensation in bilateral upper and lower extremities Results Labs 02/12/24 05:40 02/12/24 05:40 Labs: Laboratory Results - last 24 hr 02/11/24 02/11/24 20:59 21:40 WBC 6.92 RBC 4.18 Hgb 12.4 Hct 38.1 MCV 91 MCH 29.7 MCHC 32.5 RDW 12.6 Plt Count 167 MPV 8.7 Immature Gran % 0.4 Neutrophils % 54.4 Lymphocytes % 31.6 Monocytes % 8.2 Eosinophils % 4.8 Basophils % 0.6 Nucleated RBC % 0.0 Absolute Neutrophils 3.76 Absolute Lymphocytes 2.19 Absolute Monocytes 0.57 Absolute Eosinophils 0.33 Absolute Basophils 0.04 Sodium 140 Potassium 3.6 Chloride 103 Carbon Dioxide 30.8 Anion Gap 6.2 BUN 17 Creatinine 0.9 Est GFR (CKD-EPI 2020) 63.04 Glucose 105 Calcium 9.3 Magnesium 2.3 Total Bilirubin 0.35 AST 10 L ALT 19 Alkaline Phosphatase 90 Troponin I < 50 Total Protein 7.5 Albumin 4.0 TSH 5.29 H Free T4 1.20 Urine Color Yellow Urine Clarity Clear Urine pH 6.5 Ur Specific [place] 1.015 Urine Protein Negative Urine Ketones Negative Urine Blood Negative Urine Nitrite Negative Urine Bilirubin Negative Urine Urobilinogen 0.2 Ur Leukocyte Esterase Small H Urine RBC Negative Urine WBC 10-20 H Ur Epithelial Cells Moderate Urine Crystals Negative Urine Bacteria Negative Urine Casts 0-2 Hyaline Urine Mucus Moderate Urine Other Rare Renal Ur Culture Indicated? No/Sq. Contamination Urine Glucose Negative Last Vital Signs Temp 97.5 F L 02/11/24 21:31 Pulse 84 02/11/24 21:31 Resp 16 02/11/24 21:35 BP 150/70 H 02/11/24 21:31 Pulse Ox 98 02/11/24 21:31 Time Spent Time spent with Patient: >75 minutes Time was spent: preparing to see the patient(eg.review tests), obtaining and/or reviewing separately otained hiistory, ordering medications,tests, procedures, referring, communicating with other health assistant child care teacher, indepentently interpreting results, counseling the patient and care coordination
[2024-02-11] MEDS: Clopidogrel 75 MG TAB PO (23:31)
--- NOTE | 2024-02-11 23:54 | ED.GENADUL_ITS ---
Discharge Plan Disposition Patient Disposition: Home W/Home Health Services Condition: Improving Discharge Details Clinical Impression: TIA (transient ischemic attack) Primary Care Provider: Aparna Mcrae ED Provider: Jose Solis Discharge Data Discharge Date/Time-TO BE ENTERED AT DEPARTURE: 02/12/24 15:27 Discharge Physician: Alicia Carbone HPI General Date/Time Provider Initiated Documentation: 02/11/24 20:56 . HPI Narrative: This 83-year-old female with history of anemia, hypertension, GERD, dementia presents with report of alteration in mental status this evening. She reportedly received her evening meds and was in bed, the caregiver walked out of the room and patient was alert when she left the room, 2 minutes later walked in and patient was unresponsive and drooling. They attempted to wake the patient for approximately 15 to 20 minutes finally patient became alert but had some slurred speech which lasted several seconds. Patient does have some baseline xerostomia and secondary to medications but states this was different. This is since resolved and patient is reportedly at her baseline per family who is in the room. Patient does endorse some lightheadedness but denies any current dizziness. There is no recent trauma. Patient had a another episode of alteration of mental status approximately a week ago per family. She was very confused and dizzy. She had a CT scan ordered outpatient at that time and her doctor recommended emergency department assessment and admission for observation with an additional episode. At this time patient is asymptomatic, her symptoms approximately an hour and a half prior to assessment in the emergency department. Decreased medications reportedly have been changed recently as they are trying to decrease her trazodone and Lamictal within the past several weeks. Related Data Home Medications ?Medication ?Instructions ?Recorded ?Confirmed ascorbic acid (vitamin C) 500 mg 500 mg PO DAILY 04/04/14 02/12/24 tablet (Vitamin C With Erin Hips) acetaminophen 500 mg tablet 500 mg PO BID 02/25/23 02/12/24 fluticasone propionate 50 1 spray intranasal DAILY 02/25/23 02/12/24 mcg/actuation nasal spray,suspension vitamins A,C,N-atce-kaihfz 2,148 1 tab PO DAILY 02/25/23 02/12/24 mcg-113 mg-45 mg-17.4 mg tablet (PreserVision AREDS) buspirone 5 mg tablet 5 mg PO HS 12/20/23 02/12/24 buspirone 7.5 mg tablet 7.5 mg PO BID 12/20/23 02/12/24 clonazepam 0.5 mg tablet 0.5 mg PO TID 12/20/23 02/12/24 cyanocobalamin (vitamin B-12) 500 1,000 mcg PO DAILY 12/20/23 02/12/24 mcg tablet (Vitamin B-12) lamotrigine 25 mg tablet 25 mg PO BID 12/20/23 02/12/24 magnesium oxide 400 mg PO DAILY 12/20/23 02/12/24 melatonin 5 mg tablet 5 mg PO HS PRN 12/20/23 02/12/24 nyxfgsgj-vev-phqyn acid 0.4 1 tab PO DAILY 12/20/23 02/12/24 mg-lycopene 300 mcg-lutein 250 mcg tablet (Centrum Silver) ropinirole 0.5 mg tablet 0.5 mg PO QHS 12/20/23 02/12/24 sennosides 8.6 mg tablet (Senna 8.6 mg PO DAILY 12/20/23 02/12/24 Lax) trazodone 100 mg tablet 100 mg PO QHS PRN 12/20/23 02/12/24 ketoconazole 2 % topical cream 1 applic topical DAILY #120 grams 02/06/24 02/12/24 lamotrigine 100 mg tablet 50 mg PO BID 02/12/24 02/12/24 mirtazapine 7.5 mg tablet 15 mg (2 x 7.5 mg) PO QHS #0 tabs 02/13/24 02/12/24 Previous Rx's ?Medication ?Instructions ?Recorded ketoconazole 2 % topical cream 1 applic topical DAILY #120 grams 02/06/24 mirtazapine 7.5 mg tablet 15 mg (2 x 7.5 mg) PO QHS #0 tabs 02/13/24 Allergies Allergy/AdvReac Type Severity Reaction Status Date / Time adhesive Allergy Intermediate SKIN RASH Verified 01/15/24 15:35 atenolol Allergy Intermediate SHORTNESS Verified 01/15/24 15:35 OF BREATH Echinacea AdvReac Intermediate NAUSEA/VOMI Verified 01/15/24 15:35 TING mushroom AdvReac Mild Nausea Verified 01/15/24 15:35 lisinopril AdvReac Unknown ANXIOUS Verified 01/15/24 15:35 pseudoephedrine AdvReac Unknown ANXIOUS Verified 01/15/24 15:35 caffeine AdvReac shaky if Verified 01/15/24 15:35 >1 cup/day citalopram AdvReac ANXIETY Verified 01/15/24 15:35 inverted sugar AdvReac make Verified 01/15/24 15:35 nervous shellfish derived AdvReac NAUSEA/VOMI Verified 01/15/24 15:35 TING NUT FLAVOR Allergy HIVES Uncoded 01/15/24 15:35 General Stated Complaint: AMS/LOC CYNTHIA: 3 Exam Narrative Exam Narrative: Alert and oriented 83-year-old female in no acute distress, no visible signs of head trauma, pupils equal round reactive to light and accommodation, no carotid bruit, lungs clear to auscultation bilaterally, cardiac rate rhythm regular, no abdominal tenderness, alert and oriented x 3, negative mobtuk-urut-hjfark, negative heel kelley, pupils equal round reactive to light and accommodation, extraocular muscles intact. Strength and sensation intact distally. Course Vital Signs Vital signs: Vital Signs Temperature 36.4 C L 02/11/24 21:31 Pulse 84 02/11/24 21:31 Respiratory Rate 16 02/11/24 21:31 Blood Pressure 150/70 H 02/11/24 21:31 Pulse Oximetry 98 02/11/24 21:31 Temperature 36.4 C L 02/11/24 21:31 Temperature Source Tympanic 02/11/24 21:31 Pulse 84 02/11/24 21:31 Respiratory Rate 16 02/11/24 21:35 Respiratory Effort Normal 02/11/24 21:35 Respiratory Depth Normal 02/11/24 21:35 Respiratory Pattern Normal 02/11/24 21:35 Blood Pressure 150/70 H 02/11/24 21:31 Blood Pressure Position Sitting 02/11/24 21:31 Pulse Oximetry 98 02/11/24 21:31 Oxygen Delivery Method Room Air 02/11/24 23:34 Oxygen Flow Rate 0 02/11/24 21:31 Pain Level 0 02/11/24 23:34 Lab/Test Results Lab/Test Results: Laboratory Tests Range/Units 02/11/24 02/11/24 20:59 21:40 WBC (4.4-10.8) 10^3/uL 6.92 RBC (3.93-5.22) 10^6/uL 4.18 Hgb (11.2-15.7) g/dL 12.4 Hct (36.0-46.0) % 38.1 MCV (80-95) fL 91 MCH (27.0-33.0) pg 29.7 MCHC (32.0-36.0) % 32.5 RDW (11.7-14.6) % 12.6 Plt Count (130-400) 10^3/uL 167 MPV (8.0-11.0) fL 8.7 Immature Gran % % 0.4 Neutrophils % % 54.4 Lymphocytes % % 31.6 Monocytes % % 8.2 Eosinophils % % 4.8 Basophils % % 0.6 Nucleated RBC % (0.0-0.3) % 0.0 Absolute Neutrophils (1.2-6.7) 10^3/uL 3.76 Absolute Lymphocytes (1.2-3.4) 10^3/uL 2.19 Absolute Monocytes (0.1-0.8) 10^3/uL 0.57 Absolute Eosinophils (0.0-0.7) 10^3/uL 0.33 Absolute Basophils (0.0-0.2) 10^3/uL 0.04 Sodium (136-145) mmol/L 140 Potassium (3.5-5.1) mmol/L 3.6 Chloride (98-107) mmol/L 103 Carbon Dioxide (21.0-32.0) mmol/L 30.8 Anion Gap (3-11) mmol/L 6.2 BUN (7-18) mg/dL 17 Creatinine (0.55-1.02) mg/dL 0.9 Est GFR (CKD-EPI 2020) (mL/min/1.73m2) 63.04 Glucose (74-106) mg/dL 105 Calcium (8.5-10.1) mg/dL 9.3 Magnesium (1.8-2.4) mg/dL 2.3 Total Bilirubin (0.2-1.0) mg/dL 0.35 AST (15-37) U/L 10 L ALT (14-59) U/L 19 Alkaline Phosphatase (46-116) U/L 90 Troponin I (< or =60) ng/L < 50 Total Protein (6.4-8.2) g/dL 7.5 Albumin (3.4-5.0) g/dL 4.0 TSH (0.36-3.74) uIU/mL 5.29 H Free T4 (0.76-1.46) ng/dL 1.20 Urine Color (Yellow) Yellow Urine Clarity (Clear) Clear Urine pH (5-8) 6.5 Ur Specific [place] (1.005-1.025) 1.015 Urine Protein (Neg-Trace) mg/dL Negative Urine Ketones (Negative) mg/dL Negative Urine Blood (Negative) Negative Urine Nitrite (Negative) Negative Urine Bilirubin (Negative) Negative Urine Urobilinogen (Up to 0.2) mg/dL 0.2 Ur Leukocyte Esterase (Negative) Small H Urine RBC (0-2) HPF Negative Urine WBC (0-5) HPF 10-20 H Ur Epithelial Cells (Negative) HPF Moderate Urine Crystals (Negative) HPF Negative Urine Bacteria (Negative) HPF Negative Urine Casts (Negative) LPF 0-2 Hyaline Urine Mucus (Negative) Moderate Urine Other (Negative) Rare Renal Ur Culture Indicated? No/Sq. Contamination Urine Glucose (Negative) mg/dL Negative Medical Decision Making 83-year-old female presenting with report of alteration in mental status per family witnessed events and caregiver. Concern for TIA with recurrent episodes of alteration in mental status, change in mentation per family. Has had recent changes in meds, they have been decreased per family. She is still on trazodone and clonazepam in addition to Lamictal in the evening. Symptoms including slurred speech, have resolved at time of my assessment. At this time, patient's ABCD score for TIA is a 4, I will initiate Plavix and clopidogrel. Patient did have a subdural hematoma a year prior to arrival now. On CT today there is no evidence of subdural. I did give patient a dose of Plavix and clopidogrel. Patient she will likely need MRI and echocardiogram tomorrow. I did order CTA head and neck as after patient went to CT I realized that this was not performed last week. Patient has been neurologically intact throughout this encounter. She was able to swallow aspirin after swallow study without incident. Case was discussed with Dr. Solis who agrees to admit the patient for observation. Patient is full CODE STATUS per family. Quality:SDOH Health Related Social Needs: No Data to Display PFSH All Active Problems (Updated 02/12/24 @ 13:38 by Alicia Carbone APRN) Dementia (Chronic) TIA (transient ischemic attack) (Acute) Pain in right foot (Acute) Nail dystrophy (Acute) Hemorrhoids (Acute) Anemia (Chronic) Diplopia (Acute) Urinary incontinence (Acute) Intertrigo (Acute) Onychomycosis (Acute) Abnormal gait (Acute) Essential hypertension (Chronic) Hyperlipidemia (Chronic) Depressive disorder (Chronic) Followed by [facility] Psychiatry Generalized anxiety disorder (Chronic) Vitamin B12 deficiency (Chronic) Insomnia (Chronic) PSG 04/2020 with no sleep apnea but PLMD Osteopenia (Chronic) PLMD (periodic limb movement disorder) (Chronic) PSG 04/2020 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 Day Family History Mother , at 95 Essential hypertension Depression Heart disease Colon cancer Father , Heart attack at age 91. Depression Myocardial infarction Heart disease Hypertension Son Hypertension Maternal Grandfather , at 72 Heart disease Maternal Grandmother , at 58 Colon cancer Paternal Grandfather Heart disease Paternal Grandmother Heart disease Hypertension Social History Smoking/Tobacco Use Status: Never Smoking risk assessment performed?: Yes Alcohol Intake: former Drug use: Never Substance use type: does not use Housing: house Duration: 15-30 minutes/day Frequency: 3-4 times per week Emmie/Islam: Restoration Special emmie needs: No Do you feel safe at home: Yes Do you feel safe in your relationship?: Yes Additional Social history: Patient Lives at [facility] History History 1 Para 1 Hx # Term Pregnancies Multiple births Hx # Pregnancies Ectopic pregnancies AB induced Hx Number of Living Children 1 AB spontaneous
[2024-02-12] VITALS (107 sets, daily range): BP systolic 106–149; BP diastolic 51–81; PULSE 60–95; RESP 9–34; TEMP 36.5–37.2; O2SAT 88–99
[2024-02-12] MEDS: Omnipaque 350 MG/ML 100 ML BTL IJ (00:20)
[2024-02-12] MEDS: Normal Saline - Diluent 50 ML VIAL IJ (00:21)
[2024-02-12 01:03] LABS: Troponin I < 50 ng/L (< or =60)
[2024-02-12] MEDS: Acetaminophen 325 MG TAB PO (01:26)
--- NOTE | 2024-02-12 01:43 | DI.VRAD_ITS ---
PROCEDURE INFORMATION: Exam: CTA Head Without And With Contrast, Arteriography Exam date and time: 02/11/2024 11:36 PM Age: 83 years old Clinical indication: Other: AMS, speech change TECHNIQUE: Imaging protocol: Computed tomographic angiography of the head without and with contrast. Exam focused on the arteries. 3D rendering (Not supervised by radiologist): MIP and/or 3D reconstructed images were created by the technologist. Contrast material: [id number]; Contrast volume: 100 ml; Contrast route: INTRAVENOUS (IV); COMPARISON: CT HEAD WO 02/11/2024 9:04 PM FINDINGS: ANTERIOR CIRCULATION: Right internal carotid artery: Mild stenosis cavernous right ICA. Right middle cerebral artery: No occlusion or significant stenosis. No aneurysm. Right anterior cerebral artery: No occlusion or significant stenosis. No aneurysm. Left internal carotid artery: [id number] stenosis cavernous left ICA. Left middle cerebral artery: No occlusion or significant stenosis. No aneurysm. Left anterior cerebral artery: No occlusion or significant stenosis. No aneurysm. POSTERIOR CIRCULATION: Right vertebral artery: No occlusion or significant stenosis. No aneurysm. Left vertebral artery: No occlusion or significant stenosis. No aneurysm. Basilar artery: No occlusion or significant stenosis. No aneurysm. Right posterior cerebral artery: No occlusion or significant stenosis. No aneurysm. Left posterior cerebral artery: No occlusion or significant stenosis. No aneurysm. HEAD: Brain: Normal. No hemorrhage. Unremarkable white matter. No mass effect. Cerebral ventricles: Normal. No ventriculomegaly. Bones: Unremarkable. No acute fracture. Paranasal sinuses: Visualized sinuses are normal. No fluid levels. Mastoid air cells: Visualized mastoids are normal. No mastoid effusion. Soft tissues: Unremarkable. IMPRESSION: 1. Mild stenosis cavernous right ICA. 2. Bnnr-[id number] stenosis cavernous left ICA. PROCEDURE INFORMATION: Exam: CTA Neck Without And With Contrast Exam date and time: 02/11/2024 11:36 PM Age: 83 years old Clinical indication: Other: AMS, speech change TECHNIQUE: Imaging protocol: Computed tomographic angiography of the neck without and with contrast. Exam focused on the cervical segments of the vasculature. 3D rendering (Not supervised by radiologist): MIP and/or 3D reconstructed images were created by the technologist. Radiation optimization: All CT scans at this facility use at least one of these dose optimization techniques: automated exposure control; mA and/or kV adjustment per patient size (includes targeted exams where dose is matched to clinical indication); or iterative reconstruction. Contrast material: [id number]; Contrast volume: 100 ml; Contrast route: INTRAVENOUS (IV); COMPARISON: CT HEAD CERVICAL SPINE WO 02/25/2023 10:48 AM FINDINGS: Right common carotid artery: No stenosis. No dissection or occlusion. Right internal carotid artery: No stenosis of the extracranial segment. No dissection or occlusion. Right external carotid artery: No occlusion or stenosis of the origin. Left common carotid artery: No stenosis. No dissection or occlusion. Left internal carotid artery: No stenosis of the extracranial segment. No dissection or occlusion. Left external carotid artery: No occlusion or stenosis of the origin. Right vertebral artery: No stenosis. No dissection or occlusion. Left vertebral artery: No stenosis. No dissection or occlusion. Soft tissues: Normal. No significant soft tissue swelling. Bones/joints: No acute fracture. IMPRESSION: No stenosis or occlusion. REFERENCES: NASCET CRITERIA. The degree of stenosis in the cervical segment of the internal carotid artery is based on NASCET criteria. Normal is no stenosis. Mild is less than 50% stenosis. Moderate is 50-69% stenosis. Severe is 70% to 99% stenosis. Total occlusion is no detectable patent lumen. Dictated and Authenticated by: Kiel Uribe MD. Ordering:GILBERTO Collazo MD
[2024-02-12 05:51] LABS: HCT 33.6 % (36.0-46.0); HGB 10.9 g/dL (11.2-15.7); MCH 29.3 pg (27.0-33.0); MCHC 32.4 % (32.0-36.0); MCV 90 fL (80-95); MPV 8.4 fL (8.0-11.0); Platelet Count 148 10^3/uL (130-400); RBC 3.72 10^6/uL (3.93-5.22); RDW 12.8 % (11.7-14.6); RDW-SD 42.3 fL; WBC 5.68 10^3/uL (4.4-10.8)
[2024-02-12 06:00] LABS: Anion Gap 8.2 mmol/L (3-11); BUN 15 mg/dL (7-18); CO2 27.8 mmol/L (21.0-32.0); CREATININE 0.8 mg/dL (0.55-1.02); Calcium 8.6 mg/dL (8.5-10.1); Chloride 108 mmol/L (98-107); Estimated GFR 72.61 (mL/min/1.73m2); Glucose 96 mg/dL (74-106); Magnesium 2.3 mg/dL (1.8-2.4); Potassium 4.1 mmol/L (3.5-5.1); Sodium 144 mmol/L (136-145)
--- NOTE | 2024-02-12 08:38 | NUR.NOTE ---
Patient's son called to check on her. Advised him that she was doing well, ct showed no evidence of new stroke and that patient has mri and echo ordered for today.
[2024-02-12] MEDS: lamoTRIgine 25 MG TAB 50 MG PO ×2 (09:28→20:25)
[2024-02-12] MEDS: Mirtazapine 15 MG TAB PO (09:29)
[2024-02-12] MEDS: busPIRone 5 MG TAB PO ×3 (09:29→20:25)
--- NOTE | 2024-02-12 10:43 | IN_ITS ---
PT Notes Visit Reasons: [place]/possible stroke Inpatient Physical Therapy Evaluation Date: 02/12/24 Referring Doctor: Dr. Solis PT Orders: PT CONSULT: limited ability to ambulate Precautions: fall, standard Patient Profile/Admitting Diagnosis: 83-year-old female with past medical hi story of hypertension, GERD, dementia, depression and anxiety, who presented to the emergency department via EMS with altered mental status. PT consult requested for mobility assessment. Social History/Home Situation: Patient resides in a private home with family members. She has caregivers who assist with her needs. States that she does not walk any distances; she has assistance getting from her bed to her wheelchair, and from her wheelchair to the toilet. Equipment Owned/DME: manual wheelchair, FWW, grab bars Subjective: Romy states that she is still feeling dizzy, but otherwise okay. She has had some breakfast and is would like to get up to the commode. Objective: General Observation: Resting in bed with telemetry in place. Mental Status: A&Ox3. Provides clear history and consistent responses regarding baseline mobility. Pain: denies Vital Signs: monitored by nursing ROM: Right Upper Extremity: WFL Left Upper Extremity: WFL Right Lower Extremity: Demonstrates 90* hip flexion. Knee motion WFL. Left Lower Extremity: Hip flexion to 100*. Knee motion WFL. Strength: Right Upper Extremity: Shoulder flexion 3/5. Biceps 4/5. Triceps 4/5. Left Upper Extremity: Shoulder flexion 3/5. Biceps 4/5. Triceps 4/5. Right Lower Extremity: Hip flexion 3+/5. Functionally able to perform SLR, pump ankles. Left Lower Extremity: Hip flexion 3+/5. Functionally able to perform SLR, pump ankles. Bed Mobility/Transfers: supine-sit: supervision sit-stand: SBA with FWW stand-sit: SBA Gait: Ambulates 3'x2 in room with FWW, CGA. Slow, shuffling gait with limited foot clearance bilat. ADLs: Able to toilet and perform independent self-care. Balance: Static Sitting: good Dynamic Sitting: good Static Standing: fair Dynamic Standing: fair Special Tests: Mobility Limitations Standardized Measure [facility] AM-PAC 6 clicks Basic Mobility Inpatient Short Form: Raw Score: 18 CMS Score: 47% impairment Informed Consent/Education: Patient instructed in purpose of PT consult and plan of care. Assessment: Patient is an 83 year old female referred to physical therapy services for mobility assessment in acute care setting. Patient has baseline mobility impairments, and is assisted by family and caregivers for transfers only. She relies on a manual wheelchair for the majority of her mobility. She does demonstrate limitations in activity tolerance and balance, and would benefit from HH PT once medically appropriate for discharge. She is appropriate for discharge home with assistance from caregivers once medically stable, and will continue PT services for initiation of balance and cardiovascular retraining during hospital stay. She currently demonstrates the following impairment level findings: 1. gait impairments 2. decreased standing balance 3. increased risk for falls 4. unable to tolerate household distance ambulation Impairments are contributing to the following functional limitations: 1. unable to tolerate household distance ambulation 2. increased risk for falls Patient is assessed as Low 09117 complexity based on the following: History: as above Examination: functional limitations as noted above Presentation: evolving Decision Making: low Goals: Goals X1 week 1. Supine-Sit : supervision 2. Sit-Supine : supervision 3. Sit-Stand : supervision 4. Stand-Sit : supervision 5. Bed-Chair : CGA with FWW 6. Chair-Bed : CGA with FWW 7. Gait : CGA with FWW x 15' Plan of Care/Treatment Plan: 1-2x/day, 7 days/week x 1 week. Plan of care has been reviewed with the [employer] providing the service under Physical Therapy direction. Initiate Physical Therapy intervention for strengthening, bed mobility, transfers, gait, stairs, balance training, use of assistive device. DISCHARGE RECOMMENDATIONS: Home with caregivers and resumption of HH PT TREATMENT CODE/TIME: 10:40-11:00 ([id number]) Please sign an return this page within 30 days if you agree with the above POC. Thank you! Physician Signature Date [facility] All Active Problems (Updated 02/12/24 @ 06:35 by Jose Solis MD) Dementia (Chronic) TIA (transient ischemic attack) (Acute) Pain in right foot (Acute) Nail dystrophy (Acute) Hemorrhoids (Acute) Anemia (Chronic) Diplopia (Acute) Urinary incontinence (Acute) Intertrigo (Acute) Onychomycosis (Acute) Abnormal gait (Acute) Essential hypertension (Chronic) Hyperlipidemia (Chronic) Depressive disorder (Chronic) Followed by [facility] Psychiatry Generalized anxiety disorder (Chronic) Vitamin B12 deficiency (Chronic) Insomnia (Chronic) PSG 04/2020 with no sleep apnea but PLMD Osteopenia (Chronic) PLMD (periodic limb movement disorder) (Chronic) PSG 04/2020 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 Day
--- NOTE | 2024-02-12 10:50 | NUR.NOTE ---
Nursing Note: PT here to assess pt; reported she was at her baseline and able to transfer to commode via ambulation. She does live at home with round the clock support and will be returning there once discharged. No concerns from PT at this time.
--- NOTE | 2024-02-12 12:15 | DI.MRI_ITS ---
Exam(s) MR BRAIN WO EXAM: MR BRAIN WO CLINICAL HISTORY: unresponsiveness r/o CVA TECHNIQUE: Multiplanar multisequence MRI of the brain was performed. COMPARISON: MR MR BRAIN WO from 02/17/[address] BRAIN NECK CTA from 02/11/2024 FINDINGS: VENTRICLES AND EXTRA AXIAL SPACES: Normal in size and morphology for the patient's age. MIDLINE SHIFT: None. CEREBRAL PARENCHYMA: No focus of restricted diffusion to suggest acute infarct. No space-occupying le haider identified. Mild atrophy consistent with the patient's age. Mild scattered foci of high signal in the white matter consistent with sequela of chronic microvascular disease. HEMORRHAGE: None. BRAINSTEM/CEREBELLUM: Normal. VISUALIZED PARANASAL SINUSES/MASTOIDS:Clear. Vasculature: Normal flow void. PITUITARY GLAND: Unremarkable. ORBITS: Unremarkable. IMPRESSION: Age related changes. No acute abnormality. DATA REPOSITORY:
--- NOTE | 2024-02-12 13:37 | DSE_ITS ---
Date of service: 02/13/24 Time of Service: 09:29 DS: Diagnosis Discharge Diagnosis (1) TIA (transient ischemic attack): Status: Acute (2) Dementia: Status: Chronic (3) Depressive disorder: Status: Chronic Discharge Plan Disposition Patient Disposition: Home W/Home Health Services Condition: Improving Discharge Details Reason For Visit: TIA Admit Date/Time: 02/11/24 23:05 Admit Provider: Jose Solis Attending Provider: Jose Solis Primary Care Provider: Aparna Mcrae Hospital Course Hospital Course: 83-year-old female patient with a past medical history of hypertension, subdural bleed, GERD, dementia, depression, and anxiety presented to the emergency room for evaluation of altered mental status on 02/11/2024. The patient has 06/02 caregivers and upon receiving her evening medication as the caregiver walked out for 2 minutes from the room, she found the patient unresponsive and drooling when returned. She attempted to wake up the patient for about 15 to 20 minutes resulting in the patient regaining consciousness with slurred speech that lasted for several seconds then resolved. As per previous notes the patient has some baseline xerostomia secondary to her home med regimen. A similar episode reportedly happened about a week prior to presentation resulting with the primary care practitioner ordering CT scan of the head which did not find any acute findings. In the ED the patient denied headache, lightheadedness, fever, nausea, vomiting, diarrhea, constipation or dysuria. The emergency workup findings were significant for normal vital signs, normal physical exam, normal CBC and CMP. EKG was unremarkable and head CT with neck CTA did not show any acute findings pointing to significant stenosis, aneurysm or occlusion. In the emergency room the patient received 124 mg of aspirin and was started on Plavix. The hospitalist service was consulted and the patient was admitted to the medical surgical floor for evaluation and management of TIA which require further investigation including MRI and echocardiogram as well as an EEG. During the stay, the patient was initiated on high-dose statin. The MRI was negative for any acute findings except for age-related changes. With lipid pane l within normal limits high-dose statin therapy was discontinued. Echocardiogram was negative for [id number] intracardiac shunt with an LVEF of 55% with normal wall motion. The patient remained asymptomatic. As per discussion with patient and family Lamictal therapy was initiated in 2022 status post subdural hemorrhage for suspicion of seizures. An EEG was ordered to be completed as outpatient to identify any abnormal foci that might not give way to tonic-clonic or other obvious seizure patterns in the setting of frequent episode of unresponsiveness resembling TIAs. It was also observed that in the past the patient was on aspirin which was discontinued. The patient will have to discuss the resumption of aspirin 81 mg enteric-coated orally daily as MRI mentioned microvascular ischemic findings of the chronic nature and an ABCD2 score for TIA of around 2 indicating low risk. The patient chronic conditions were managed as per home pharmacological regimen. Patient aware to resume her home medicine regimen once home. The patient will have to follow-up with her primary care practitioner within 7 days of discharge. The patient will be discharged home with your referral for [facility] with physical therapy as per inpatient physical therapy evaluation. Discussed with Dr. Ferreira [place] Meds and New Rx's Prescriptions: Continued ketoconazole 2 % cream 1 applic topical DAILY Qty: 120 6RF Rx Instructions: Apply to toenails once daily ascorbic acid (vitamin C) [Vitamin C With Erin Hips] 500 MG tablet 500 mg PO DAILY buspirone 5 mg tablet 5 mg PO HS buspirone 7.5 mg tablet 7.5 mg PO BID Rx Instructions: 1 tablet at 7 am and one at noon Centrum Silver 0.4 mg-300 mcg- 250 mcg tablet 1 tab PO DAILY clonazepam 0.5 mg tablet 0.5 mg PO TID cyanocobalamin (vitamin B-12) [Vitamin B-12] 500 mcg tablet 1,000 mcg PO DAILY lamotrigine 25 mg tablet 25 mg PO BID melatonin 5 mg tablet 5 mg PO HS PRN magnesium oxide 400 mg magnesium capsule 400 mg PO DAILY ropinirole 0.5 mg tablet 0.5 mg PO QHS Rx Instructions: administer 1-3 hours before bedtime sennosides [Senna Lax] 8.6 mg tablet 8.6 mg PO DAILY trazodone 100 mg tablet 100 mg PO QHS PRN acetaminophen 500 mg Tablet 500 mg PO BID fluticasone propionate 50 mcg/actuation spray,suspension 1 spray INTRANASAL DAILY Rx Instructions: one spray in each nostril daily PreserVision AREDS 2,148 mcg-113 mg-45 mg-17.4mg Tablet 1 tab PO DAILY lamotrigine 100 mg tablet 50 mg PO BID Patient Comments: TAKE ONE-HALF TABLET BY MOUTH TWICE A DAY Changed mirtazapine 7.5 mg tablet 15 mg PO QHS Qty: 0 0RF Discontinued mirtazapine 15 mg tablet 15 mg PO DAILY Discharge Instructions Instructions: Stroke Stand Alone Forms: Nursing Discharge Form Referrals: Aparna Mcrae [Primary Care Provider] - 02/19/24 1:55 pm () Activity:: Activity as Tolerated Equipment/Supplies:: Walker Diet:: heart healty Discharge Orders Discharge Orders: Discharge Order (Routine); Ordered 02/13/24 Ordered By: Alicia Carbone Other Ambulatory Orders: EEG(Regular) (Routine) Location: None Selected Ordered By: Alicia Carbone DS: Summary Time Spent with Patient providing and/or coordinating discharge services: Greater than 30 minutes Status at Discharge Functional status at discharge: uses cane/walker Overall status at discharge: patient is not back to baseline Mental Status: mental status grossly normal Speech and Movement: speech and movement normal Mood: congruent mood and labile mood Affect: labile affect Quality:SDOH Health Related Social Needs: No Data to Display Exam Narrative Exam Narrative: HENMT: Facial structures with normal appearance, more relaxed then the previous day Eyes: Well aligned, intact ROM Neuro:alert and oriented to self, person, place time. No focal deficits Resp: Clear lung bilaterally Cardio: regular rhythm, S1, S2, no murmur GI: Abdomen is not distended, soft and non tender, bowel sounds are present, umbilical hernia without pain Extremities: strength bilaterally equal to lower and upper extremities Psych: RASS 1, labile mood and normal affect. Psych Mental Status: mental status grossly normal Speech and Movement: speech and movement normal Mood: congruent mood and labile mood Affect: labile affect DS: Data Vitals/I&O Vitals and I&O: Vital Signs Temperature 37.2 C 02/12/24 04:07 Temperature Source Temporal Artery Scan 02/12/24 04:07 Pulse 71 02/12/24 04:07 Pulse 81 02/12/24 09:10 Respiratory Rate 21 02/12/24 09:10 Respiratory Effort Normal 02/11/24 21:35 Respiratory Depth Normal 02/11/24 21:35 Respiratory Pattern Normal 02/11/24 21:35 Blood Pressure 135/75 02/12/24 08:46 Blood Pressure Position Sitting 02/11/24 21:31 Pulse Oximetry 88 L 02/12/24 09:02 Oxygen Delivery Method Room Air 02/12/24 04:07 Oxygen Flow Rate 0 02/12/24 04:07 Pain Level 0 02/12/24 04:06 Comment RN notified 02/12/24 00:26 Intake & Output 02/11/24 02/12/24 02/12/24 23:59 11:59 23:59 Output Total 200 / 200 Balance -200 / -200 Weight 58.06 kg Output: Urine 200 / 200 Other: # Voids 2 Data Completed and Pending Labs on day of discharge: Labs from last 24 hours 02/12/24 02/12/24 02/11/24 05:40 00:43 21:40 WBC 5.68 RBC 3.72 L Hgb 10.9 L Hct 33.6 L MCV 90 MCH 29.3 MCHC 32.4 RDW 12.8 Plt Count 148 MPV 8.4 Immature Gran % Neutrophils % Lymphocytes % Monocytes % Eosinophils % Basophils % Nucleated RBC % Absolute Neutrophils Absolute Lymphocytes Absolute Monocytes Absolute Eosinophils Absolute Basophils Sodium 144 Potassium 4.1 Chloride 108 H Carbon Dioxide 27.8 Anion Gap 8.2 BUN 15 Creatinine 0.8 Est GFR (CKD-EPI 2020) 72.61 Glucose 96 Calcium 8.6 Magnesium 2.3 Total Bilirubin AST ALT Alkaline Phosphatase Troponin I < 50 Total Protein Albumin TSH Free T4 Urine Color Yellow Urine Clarity Clear Urine pH 6.5 Ur Specific [place] 1.015 Urine Protein Negative Urine Ketones Negative Urine Blood Negative Urine Nitrite Negative Urine Bilirubin Negative Urine Urobilinogen 0.2 Ur Leukocyte Esterase Small H Urine RBC Negative Urine WBC 10-20 H Ur Epithelial Cells Moderate Urine Crystals Negative Urine Bacteria Negative Urine Casts 0-2 Hyaline Urine Mucus Moderate Urine Other Rare Renal Ur Culture Indicated? No/Sq. Contamination Urine Glucose Negative Lamotrigine 02/11/24 20:59 WBC 6.92 RBC 4.18 Hgb 12.4 Hct 38.1 MCV 91 MCH 29.7 MCHC 32.5 RDW 12.6 Plt Count 167 MPV 8.7 Immature Gran % 0.4 Neutrophils % 54.4 Lymphocytes % 31.6 Monocytes % 8.2 Eosinophils % 4.8 Basophils % 0.6 Nucleated RBC % 0.0 Absolute Neutrophils 3.76 Absolute Lymphocytes 2.19 Absolute Monocytes 0.57 Absolute Eosinophils 0.33 Absolute Basophils 0.04 Sodium 140 Potassium 3.6 Chloride 103 Carbon Dioxide 30.8 Anion Gap 6.2 BUN 17 Creatinine 0.9 Est GFR (CKD-EPI 2020) 63.04 Glucose 105 Calcium 9.3 Magnesium 2.3 Total Bilirubin 0.35 AST 10 L ALT 19 Alkaline Phosphatase 90 Troponin I < 50 Total Protein 7.5 Albumin 4.0 TSH 5.29 H Free T4 1.20 Urine Color Urine Clarity Urine pH Ur Specific [place] Urine Protein Urine Ketones Urine Blood Urine Nitrite Urine Bilirubin Urine Urobilinogen Ur Leukocyte Esterase Urine RBC Urine WBC Ur Epithelial Cells Urine Crystals Urine Bacteria Urine Casts Urine Mucus Urine Other Ur Culture Indicated? Urine Glucose Lamotrigine Pending [facility] All Active Problems (Updated 02/12/24 @ 13:38 by Alicia Carbone APRN) Dementia (Chronic) TIA (transient ischemic attack) (Acute) Pain in right foot (Acute) Nail dystrophy (Acute) Hemorrhoids (Acute) Anemia (Chronic) Diplopia (Acute) Urinary incontinence (Acute) Intertrigo (Acute) Onychomycosis (Acute) Abnormal gait (Acute) Essential hypertension (Chronic) Hyperlipidemia (Chronic) Depressive disorder (Chronic) Followed by [facility] Psychiatry Generalized anxiety disorder (Chronic) Vitamin B12 deficiency (Chronic) Insomnia (Chronic) PSG 04/2020 with no sleep apnea but PLMD Osteopenia (Chronic) PLMD (periodic limb movement disorder) (Chronic) PSG 04/2020 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 Day Family History Mother , at 95 Essential hypertension Depression Heart disease Colon cancer Father , Heart attack at age 91. Depression Myocardial infarction Heart disease Hypertension Son Hypertension Maternal Grandfather , at 72 Heart disease Maternal Grandmother , at 58 Colon cancer Paternal Grandfather Heart disease Paternal Grandmother Heart disease Hypertension Social History Smoking/Tobacco Use Status: Never Smoking risk assessment performed?: Yes Alcohol Intake: former Drug use: Never Substance use type: does not use Housing: house Duration: 15-30 minutes/day Frequency: 3-4 times per week Emmie/Yazidi: Catholic Special emmie needs: No Do you feel safe at home: Yes Do you feel safe in your relationship?: Yes Additional Social history: Patient Lives at [facility] History History 1 Para 1 Hx # Term Pregnancies Multiple births Hx # Pregnancies Ectopic pregnancies AB induced Hx Number of Living Children 1 AB spontaneous Time Spent with Patient Time Spent with Patient: >85 minutes Time was spent: preparing to see the patient(eg.review tests), obtaining and/or reviewing separately otained hiistory, ordering medications,tests, procedures, referring, communicating with other health manager intensive care unit, indepentently interpreting results, counseling the patient and care coordination
--- NOTE | 2024-02-12 18:41 | W.PC.ACHO ---
Registration Status: Primary Language: Preferred Language: ED Information & Data Chief Complaint AMS/LOC 02/12/24 00:00 Triage Note Family concerned pt was 02/11/24 21:31 altered from baseline, more tired and with slurred speech. Pt had stroke approx 2 weeks ago and had just taken hs meds approx 20 mins prior to family calling EMS Medical / Surgical History (Last Reviewed 02/06/24 @ 13:13 by Carmen Eric DPM) Major depression Vitamin D deficiency Vitamin B12 deficiency (non anemic) Syncope and collapse Chronic pain Mucinous cystadenoma of ovary History of blood transfusion Hernia of abdominal cavity History of depression Cornea scar Cataract Arthritis Anxiety Basal cell carcinoma (~08/2015) Squamous cell carcinoma Mucinous cystadenoma, borderline malignancy (~2010) (Last Reviewed 02/06/24 @ 13:13 by Carmen Eric DPM) Hx of cataract surgery S/P TEO-BSO (total abdominal hysterectomy and bilateral salpingo-oophorectomy) (08/23/10) 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) Most Recent Vital Signs Temperature 37.2 C 02/12/24 04:07 Temperature Source Temporal Artery Scan 02/12/24 04:07 Pulse 71 02/12/24 04:07 Pulse 81 02/12/24 09:10 Respiratory Rate 21 02/12/24 09:10 Respiratory Effort Normal 02/11/24 21:35 Respiratory Depth Normal 02/11/24 21:35 Respiratory Pattern Normal 02/11/24 21:35 Blood Pressure 135/75 02/12/24 08:46 Blood Pressure Position Sitting 02/11/24 21:31 Pulse Oximetry 97 02/12/24 17:12 Oxygen Delivery Method Room Air 02/12/24 04:07 Oxygen Flow Rate 0 02/12/24 04:07 Pain Level 0 02/12/24 04:06 Comment RN notified 02/12/24 00:26 Allergies adhesive Allergy (Intermediate, Verified 01/15/24 15:35) SKIN RASH atenolol Allergy (Intermediate, Verified 01/15/24 15:35) SHORTNESS OF BREATH Echinacea Adverse Reaction (Intermediate, Verified 01/15/24 15:35) NAUSEA/VOMITING mushroom Adverse Reaction (Mild, Verified 01/15/24 15:35) Nausea lisinopril Adverse Reaction (Unknown, Verified 01/15/24 15:35) ANXIOUS pseudoephedrine Adverse Reaction (Unknown, Verified 01/15/24 15:35) ANXIOUS caffeine Adverse Reaction (Verified 01/15/24 15:35) shaky if >1 cup/day citalopram Adverse Reaction (Verified 01/15/24 15:35) ANXIETY inverted sugar Adverse Reaction (Verified 01/15/24 15:35) make nervous shellfish derived Adverse Reaction (Verified 01/15/24 15:35) NAUSEA/VOMITING NUT FLAVOR Allergy (Uncoded 01/15/24 15:35) HIVES Precautions Isolation Standard precaution 02/11/24 21:35 Active Medications Generic Name Dose Route Start Last Admin Trade Name Freq PRN Reason Stop Dose Admin Acetaminophen 0 mg 02/11/24 23:05 02/12/24 01:26 Acetaminophen 325 Mg Tab PO 325 mg Q4H PRN PRN Administration Buspirone HCl 5 mg 02/12/24 08:30 02/12/24 14:19 Buspirone 5 Mg Tab PO 5 mg TID NORMA Administration Lamotrigine 50 mg 02/12/24 08:30 02/12/24 09:28 Lamotrigine 25 Mg Tab PO 25 mg BID NORMA Administration Mirtazapine 15 mg 02/12/24 08:30 02/12/24 09:29 Mirtazapine 15 Mg Tab PO 15 mg DAILY NORMA Administration Diagnostics 02/12/24 02/12/24 02/11/24 Range/Units 05:40 00:43 21:40 WBC 5.68 (4.4-10.8) 10^3/uL RBC 3.72 L (3.93-5.22) 10^6/uL Hgb 10.9 L (11.2-15.7) g/dL Hct 33.6 L (36.0-46.0) % MCV 90 (80-95) fL MCH 29.3 (27.0-33.0) pg MCHC 32.4 (32.0-36.0) % RDW 12.8 (11.7-14.6) % Plt Count 148 (130-400) 10^3/uL MPV 8.4 (8.0-11.0) fL Immature Gran % % Neutrophils % % Lymphocytes % % Monocytes % % Eosinophils % % Basophils % % Nucleated RBC % (0.0-0.3) % Absolute Neutrophils (1.2-6.7) 10^3/uL Absolute Lymphocytes (1.2-3.4) 10^3/uL Absolute Monocytes (0.1-0.8) 10^3/uL Absolute Eosinophils (0.0-0.7) 10^3/uL Absolute Basophils (0.0-0.2) 10^3/uL Sodium 144 (136-145) mmol/L Potassium 4.1 (3.5-5.1) mmol/L Chloride 108 H (98-107) mmol/L Carbon Dioxide 27.8 (21.0-32.0) mmol/L Anion Gap 8.2 (3-11) mmol/L BUN 15 (7-18) mg/dL Creatinine 0.8 (0.55-1.02) mg/dL Est GFR (CKD-EPI 2020) 72.61 (mL/min/1.73m2) Glucose 96 (74-106) mg/dL Calcium 8.6 (8.5-10.1) mg/dL Magnesium 2.3 (1.8-2.4) mg/dL Total Bilirubin (0.2-1.0) mg/dL AST (15-37) U/L ALT (14-59) U/L Alkaline Phosphatase (46-116) U/L Troponin I < 50 (< or =60) ng/L Total Protein (6.4-8.2) g/dL Albumin (3.4-5.0) g/dL TSH (0.36-3.74) uIU/mL Free T4 (0.76-1.46) ng/dL Urine Color Yellow (Yellow) Urine Clarity Clear (Clear) Urine pH 6.5 (5-8) Ur Specific [place] 1.015 (1.005-1.025) Urine Protein Negative (Neg-Trace) mg/dL Urine Ketones Negative (Negative) mg/dL Urine Blood Negative (Negative) Urine Nitrite Negative (Negative) Urine Bilirubin Negative (Negative) Urine Urobilinogen 0.2 (Up to 0.2) mg/dL Ur Leukocyte Esterase Small H (Negative) Urine RBC Negative (0-2) HPF Urine WBC 10-20 H (0-5) HPF Ur Epithelial Cells Moderate (Negative) HPF Urine Crystals Negative (Negative) HPF Urine Bacteria Negative (Negative) HPF Urine Casts 0-2 Hyaline (Negative) LPF Urine Mucus Moderate (Negative) Urine Other Rare Renal (Negative) Ur Culture Indicated? No/Sq. Contamination Urine Glucose Negative (Negative) mg/dL Lamotrigine 02/11/24 Range/Units 20:59 WBC 6.92 (4.4-10.8) 10^3/uL RBC 4.18 (3.93-5.22) 10^6/uL Hgb 12.4 (11.2-15.7) g/dL Hct 38.1 (36.0-46.0) % MCV 91 (80-95) fL MCH 29.7 (27.0-33.0) pg MCHC 32.5 (32.0-36.0) % RDW 12.6 (11.7-14.6) % Plt Count 167 (130-400) 10^3/uL MPV 8.7 (8.0-11.0) fL Immature Gran % 0.4 % Neutrophils % 54.4 % Lymphocytes % 31.6 % Monocytes % 8.2 % Eosinophils % 4.8 % Basophils % 0.6 % Nucleated RBC % 0.0 (0.0-0.3) % Absolute Neutrophils 3.76 (1.2-6.7) 10^3/uL Absolute Lymphocytes 2.19 (1.2-3.4) 10^3/uL Absolute Monocytes 0.57 (0.1-0.8) 10^3/uL Absolute Eosinophils 0.33 (0.0-0.7) 10^3/uL Absolute Basophils 0.04 (0.0-0.2) 10^3/uL Sodium 140 (136-145) mmol/L Potassium 3.6 (3.5-5.1) mmol/L Chloride 103 (98-107) mmol/L Carbon Dioxide 30.8 (21.0-32.0) mmol/L Anion Gap 6.2 (3-11) mmol/L BUN 17 (7-18) mg/dL Creatinine 0.9 (0.55-1.02) mg/dL Est GFR (CKD-EPI 2020) 63.04 (mL/min/1.73m2) Glucose 105 (74-106) mg/dL Calcium 9.3 (8.5-10.1) mg/dL Magnesium 2.3 (1.8-2.4) mg/dL Total Bilirubin 0.35 (0.2-1.0) mg/dL AST 10 L (15-37) U/L ALT 19 (14-59) U/L Alkaline Phosphatase 90 (46-116) U/L Troponin I < 50 (< or =60) ng/L Total Protein 7.5 (6.4-8.2) g/dL Albumin 4.0 (3.4-5.0) g/dL TSH 5.29 H (0.36-3.74) uIU/mL Free T4 1.20 (0.76-1.46) ng/dL Urine Color (Yellow) Urine Clarity (Clear) Urine pH (5-8) Ur Specific [place] (1.005-1.025) Urine Protein (Neg-Trace) mg/dL Urine Ketones (Negative) mg/dL Urine Blood (Negative) Urine Nitrite (Negative) Urine Bilirubin (Negative) Urine Urobilinogen (Up to 0.2) mg/dL Ur Leukocyte Esterase (Negative) Urine RBC (0-2) HPF Urine WBC (0-5) HPF Ur Epithelial Cells (Negative) HPF Urine Crystals (Negative) HPF Urine Bacteria (Negative) HPF Urine Casts (Negative) LPF Urine Mucus (Negative) Urine Other (Negative) Ur Culture Indicated? Urine Glucose (Negative) mg/dL Lamotrigine Pending [id number] Documentation Fingerstick Glucose Start: 02/11/24 20:59 Freq: .Stat Status: Active Protocol: Activity Type Activity Date Activity User E-sign Co-sign Detail Recorded Client Recorded Date Recorded By Document 02/11/24 21:08 LUIS ANGEL CHINO(3) [id number] 02/11/24 21:09 LUIS ANGEL CHINO(4) Intake and Output - 24 Hour Total 02/11/24 20:49 thru 02/12/24 09:03 Output Total 200 Balance -200 Weight 58.06 kg Output: Urine 200 Other: # Voids 2 Falls Risk Assessment History of Falls No History 02/11/24 21:35 Contributing Factors No Factors 02/11/24 21:35 Ambulatory Aids Independent 02/11/24 21:35 Tubes/Lines None 02/11/24 21:35 Gait Evaluation No gait disturbance 02/11/24 21:35 Fall Total Score 0 02/11/24 21:35 Level of Risk Standard/Low Risk 02/11/24 21:35 Problems (Last Reviewed 02/06/24 @ 13:13 by Carmen Eric DPM) Dementia (Chronic) TIA (transient ischemic attack) (Acute) Depressive disorder (Chronic) Notes 02/12/24 10:50 Nursing Notes by Martha Young Nursing Note: PT here to assess pt; reported she was at her baseline and able to transfer to commode via ambulation. She does live at home with round the clock support and will be returning there once discharged. No concerns from PT at this time. Initialized on 02/12/24 10:50 - END OF NOTE 02/12/24 08:38 Nursing Notes by Samira Gimenez Patient's son called to check on her. Advised him that she was doing well, ct showed no evidence of new stroke and that patient has mri and echo ordered for today. Initialized on 02/12/24 08:38 - END OF NOTE v v v v v v v v v Sending and/or Receiving Nurses: Please use comment section below to note any information pertinent to the patient hand-off not included above. Information / Comments: Pt had AMS, unresponsive with drooling at home right after CG gave her night time meds. Family brought her to the ED yesterday as she had slurred speech after episode resolved. B: hx of dementia, with a similar episode last week: confused and dizzy, small hemorrhagic stroke. A: A&O but confused, VS in ED: 37.2, 71, 18, 135/75, 97% on RA, LS CTA, 18g IV on right ac, no ectopy, HR regular, pivots to commode for urination, no pain, some redness around lips, ED gave her chapstick. PT evaluated in the ED and decided she was at her baseline. R: ECHO tomorrow? Report received from: Martha 18:23
--- NOTE | 2024-02-12 19:38 | W.PM.PROGNOT ---
Date of Service Date of service: 02/12/24 Time of Service: 17:00 Assessment and Plan Assessment and plan (1) TIA (transient ischemic attack): Status: Acute Assessment and plan: - Suspicion for TIA given symptoms brief periods of altered mental status -CT head with CT angio neck negative in the emergency department -Follow-up MRI is negative for stroke -echocardiogram is still pending will be done on 02/13/2024 -Continue aspirin -High-dose statin discontinued. (2) Dementia: Status: Chronic Assessment and plan: - Continue home buspirone, clonazepam at bedtime, Lamictal adjusted dose, mirtazapine at at bedtime -Patient reporting hunger issues and add lorazepam in the past, will try low-dose once a day as needed lorazepam (3) Depressive disorder: Status: Chronic Assessment and plan: As above Discussed with Dr. Ferreira Subjective Subjective Patient reports: no new complaints, feels better, tolerating liquids well, tolerating a regular diet and voiding w/o difficulty; denies diarrhea, nausea, vomiting, shortness of breath or fever Exam Narrative Exam Narrative: HENMT: Facial structures with normal appearance, flushed at times when verbalizing anger Eyes: Well aligned, intact ROM Neuro:alert and oriented to self, person, place time. Non-focal Resp: Clear lung bilaterally Cardio: regular rhythm, S1, S2, no murmur, capillary refill<3 sec., bilateral radial and dorsalis pedis pulses are positive GI: Abdomen is not distended, soft and non tender, bowel sounds are present, umbilical hernia without pain : Negative Costovertebral angle tenderness Back/spine/Pelvis: No back tenderness, normal alignment Integumentary: No skin lesions or rash Extremities: strength bilaterally equal to lower and upper extremities Psych: RASS 1, labile mood and normal affect. Objective Last Vital Signs Temp 36.8 C 02/12/24 18:46 Pulse 83 02/12/24 18:46 Resp 17 02/12/24 18:46 BP 149/79 H 02/12/24 18:46 Pulse Ox 97 02/12/24 18:46 Laboratory Results - last 24 hr 02/11/24 02/11/24 02/12/24 20:59 21:40 00:43 WBC 6.92 RBC 4.18 Hgb 12.4 Hct 38.1 MCV 91 MCH 29.7 MCHC 32.5 RDW 12.6 Plt Count 167 MPV 8.7 Immature Gran % 0.4 Neutrophils % 54.4 Lymphocytes % 31.6 Monocytes % 8.2 Eosinophils % 4.8 Basophils % 0.6 Nucleated RBC % 0.0 Absolute Neutrophils 3.76 Absolute Lymphocytes 2.19 Absolute Monocytes 0.57 Absolute Eosinophils 0.33 Absolute Basophils 0.04 Sodium 140 Potassium 3.6 Chloride 103 Carbon Dioxide 30.8 Anion Gap 6.2 BUN 17 Creatinine 0.9 Est GFR (CKD-EPI 2020) 63.04 Glucose 105 Calcium 9.3 Magnesium 2.3 Total Bilirubin 0.35 AST 10 L ALT 19 Alkaline Phosphatase 90 Troponin I < 50 < 50 Total Protein 7.5 Albumin 4.0 TSH 5.29 H Free T4 1.20 Urine Color Yellow Urine Clarity Clear Urine pH 6.5 Ur Specific [place] 1.015 Urine Protein Negative Urine Ketones Negative Urine Blood Negative Urine Nitrite Negative Urine Bilirubin Negative Urine Urobilinogen 0.2 Ur Leukocyte Esterase Small H Urine RBC Negative Urine WBC 10-20 H Ur Epithelial Cells Moderate Urine Crystals Negative Urine Bacteria Negative Urine Casts 0-2 Hyaline Urine Mucus Moderate Urine Other Rare Renal Ur Culture Indicated? No/Sq. Contamination Urine Glucose Negative 02/12/24 05:40 WBC 5.68 RBC 3.72 L Hgb 10.9 L Hct 33.6 L MCV 90 MCH 29.3 MCHC 32.4 RDW 12.8 Plt Count 148 MPV 8.4 Immature Gran % Neutrophils % Lymphocytes % Monocytes % Eosinophils % Basophils % Nucleated RBC % Absolute Neutrophils Absolute Lymphocytes Absolute Monocytes Absolute Eosinophils Absolute Basophils Sodium 144 Potassium 4.1 Chloride 108 H Carbon Dioxide 27.8 Anion Gap 8.2 BUN 15 Creatinine 0.8 Est GFR (CKD-EPI 2020) 72.61 Glucose 96 Calcium 8.6 Magnesium 2.3 Total Bilirubin AST ALT Alkaline Phosphatase Troponin I Total Protein Albumin TSH Free T4 Urine Color Urine Clarity Urine pH Ur Specific [place] Urine Protein Urine Ketones Urine Blood Urine Nitrite Urine Bilirubin Urine Urobilinogen Ur Leukocyte Esterase Urine RBC Urine WBC Ur Epithelial Cells Urine Crystals Urine Bacteria Urine Casts Urine Mucus Urine Other Ur Culture Indicated? Urine Glucose Time Spent with Patient Time Spent with Patient: >50 minutes Time was spent: preparing to see the patient(eg.review tests), obtaining and/or reviewing separately otained hiistory, ordering medications,tests, procedures, referring, communicating with other health child day care center worker, indepentently interpreting results, counseling the patient and care coordination
[2024-02-12] MEDS: rOPINIRole 0.5 MG TAB PO (20:24)
[2024-02-12] MEDS: traZODone 100 MG TAB 50 MG PO (20:26)
[2024-02-12] MEDS: clonazePAM 0.5 MG TAB PO (20:26)
[2024-02-12] MEDS: Mirtazapine 15 MG TAB 7.5 MG PO (20:26)
[2024-02-12] MEDS: Normal Saline Flush 10 ML SYR IVP (20:27)
[2024-02-12] MEDS: Atorvastatin 40 MG TAB 80 MG PO (20:27)
[2024-02-12] MEDS: Melatonin 3 MG TAB 6 MG PO (20:27)
[2024-02-12] MEDS: Docusate Sodium 100 MG CAP PO (20:36)
[2024-02-13 03:40] VITALS: BP 105/50; PULSE 65; RESP 19; TEMP 36.4; O2SAT 96
[2024-02-13 07:11] LABS: Abs Immature Grans 0.01 10^3/uL (0.0-0.06); Absolute Basophil Count 0.05 10^3/uL (0.0-0.2); Absolute Eosinophil Count 0.49 10^3/uL (0.0-0.7); Absolute Lymphocyte Count 1.55 10^3/uL (1.2-3.4); Absolute Monocyte Count 0.68 10^3/uL (0.1-0.8); Absolute Neutrophil Count 3.63 10^3/uL (1.2-6.7); Basophils % 0.8 %; Eosinophils % 7.6 %; HGB 11.3 g/dL (11.2-15.7); Immature Grans % 0.2 %; Lymphocytes % 24.2 %; MCH 29.1 pg (27.0-33.0); MCHC 32.3 % (32.0-36.0); MCV 90 fL (80-95); MPV 8.7 fL (8.0-11.0); Monocytes % 10.6 %; Neutrophils % 56.6 %; Platelet Count 160 10^3/uL (130-400); RBC 3.88 10^6/uL (3.93-5.22); RDW-SD 42.5 fL; WBC 6.41 10^3/uL (4.4-10.8)
[2024-02-13 07:33] LABS: Anion Gap 9.3 mmol/L (3-11); BUN 14 mg/dL (7-18); CO2 28.7 mmol/L (21.0-32.0); CREATININE 0.7 mg/dL (0.55-1.02); Calcium 8.8 mg/dL (8.5-10.1); Chloride 109 mmol/L (98-107); Estimated GFR 85.23 (mL/min/1.73m2); Glucose 86 mg/dL (74-106); Potassium 3.9 mmol/L (3.5-5.1); Sodium 147 mmol/L (136-145)
[2024-02-13 07:34] VITALS: BP 125/53; PULSE 77; RESP 17; TEMP 36.7; O2SAT 97
--- NOTE | 2024-02-13 08:54 | PDOC.CMIN ---
Date of service: 02/13/24 Time of Service: 08:54 Care Management Initial Assmt Initial Assessment Reason for Hospitalization: AMS, TIA Functional Status/Living Situation Patient Presentation: Romy was sitting in a recliner when CM met with her. Per pt, she feels out of it and has had trouble walking since her brain bleed last February. Romy lives with her son Surya, his girlfriend and her mom and reports that she has caregivers services through [employer] from 8-11am and 5-8pm daily. Town of Residence: [facility] Resides with: Other (Son Surya, his girlfriend and her mom. All very supportive.) Caregiver/Guardian: Has private caregivers, son and his girlfriend are supportive. Natural Supports: , Surya is her only child Employment Status: Retired Instrumental Activities of Daily Living (ADLs): Requires support with Dishes/food prep, Groceries, Heat/Utilities, Laundry and Transportation Medications Medication Management: No Issues/Barriers identified Physical Functioning/Mobility Assistive Device: Wheelchair Advance Directives Advance Directives: Do you have an Advance Directive: Y 03/19/13 10:41 AD On File at [facility]: Y 12/03/12 08:14 Date Asked 02/25/23 02/12/24 15:17 AD Date Reviewed 02/11/24 02/12/24 15:17 COLST On File at [facility] COLST Date Scanned Code Status Resuscitation Status Full Code Insurance Coverage/Financial Issues Insurance: AARP Medicare Financial Issues: None identified Care Team Visit Care Team Role Provider Type Aparna Mcrae Primary Care Provider ADV PRACTICE REGISTERED NURSE InPatient [facility] Other Providers OTHER Jose Solis MD Admit Provider [facility] STAFF PHYSICIAN Attending Provider Emergency Provider Alicia Carbone MD [facility] STAFF PHYSICIAN Discharge Potential Discharge Needs: PT Evaluation Anticipated Barriers to Discharge: None Identified Patient/Family Education Needs: Review discharge instructions, discuss Ask Me Three Transportation: Private vehicle Plan: Anticipate, Romy will discharge home with resumption of caregiver supports when medically ready per provider. Awaiting PT recommendations. Romy will follow up with her PCP and discharge plan of care as instructed. CM will follow. PFSH All Active Problems (Updated 02/12/24 @ 13:38 by Alicia Carbone APRN) Dementia (Chronic) TIA (transient ischemic attack) (Acute) Pain in right foot (Acute) Nail dystrophy (Acute) Hemorrhoids (Acute) Anemia (Chronic) Diplopia (Acute) Urinary incontinence (Acute) Intertrigo (Acute) Onychomycosis (Acute) Abnormal gait (Acute) Essential hypertension (Chronic) Hyperlipidemia (Chronic) Depressive disorder (Chronic) Followed by [facility] Psychiatry Generalized anxiety disorder (Chronic) Vitamin B12 deficiency (Chronic) Insomnia (Chronic) PSG 04/2020 with no sleep apnea but PLMD Osteopenia (Chronic) PLMD (periodic limb movement disorder) (Chronic) PSG 04/2020 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 Day Family History Mother , at 95 Essential hypertension Depression Heart disease Colon cancer Father , Heart attack at age 91. Depression Myocardial infarction Heart disease Hypertension Son Hypertension Maternal Grandfather , at 72 Heart disease Maternal Grandmother , at 58 Colon cancer Paternal Grandfather Heart disease Paternal Grandmother Heart disease Hypertension Social History Smoking/Tobacco Use Status: Never Smoking risk assessment performed?: Yes Alcohol Intake: former Drug use: Never Substance use type: does not use Housing: house Duration: 15-30 minutes/day Frequency: 3-4 times per week Emmie/Islam: Mandaeism Special emmie needs: No Do you feel safe at home: Yes Do you feel safe in your relationship?: Yes Additional Social history: Patient Lives at [facility] History History 1 Para 1 Hx # Term Pregnancies Multiple births Hx # Pregnancies Ectopic pregnancies AB induced Hx Number of Living Children 1 AB spontaneous SDOH(Care Management) Screening Will the Patient Participate in the Screening?: Yes Do you worry about having a steady place to live?: no Problems where you live: no known problems In the past 12 months, have you had to go without electric, gas, oil or water in your home?: no Have you or anyone in your house had to go without enough food to eat?: no Has lack of transportation kept you from medical appointments or from doing things needed for daily living?: no Has anyone in your support network made you feel unsafe for any reason?: no
--- NOTE | 2024-02-13 08:55 | PDOC.CMDIS ---
Date of service: 02/13/24 Time of Service: 08:55 Care Management Discharge SDOH Health Related Social Needs: No Data to Display
--- NOTE | 2024-02-13 09:03 | PT.INTREAT ---
PT Notes Visit Reasons: TIA (cardiology) Inpatient Physical Therapy Treatment Note [facility] Date: 02/13/24 PRECAUTIONS:fall, standard SUBJECTIVE: Romy states that she is feeling okay this am. She would like to get up to the commode. OBJECTIVE: ? PAIN: denies VITALS: ? Post-Treatment: 122/59, HR 84? Therapeutic Activities ([id number]): Direct one-on-one instruction in dynamic activities to improve functional performance. ? BED MOBILITY/TRANSFERS? Supine-sit: independent? Sit-stand: CGA? Stand-sit: CGA ? Bed-Chair: CGA with FWW ? Provided skilled cues and instruction on performance and technique throughout. Requires cues for hand placement during sit<->stand transfers. Requires assist for self-care after toileting. GAIT? Assistive Device: FWW? Weight bearing: WBAT Assist: CGA ? Distance:? 6' x 1, 3'x1 ? Deviation: slow, shuffling gait, with limited foot clearance. Reports dizziness with ambulation. Vitals as above. Improved at end of session. ? Held on further exercises. ? ASSESSMENT:? Tolerating short distance ambulation with assistance, as per her baseline level of mobility. Requires assist of 1 for all transfers and ambulation. PLAN: Progress as tolerated. TREATMENT CODE/TIME: [id number] ([id number]) DISCHARGE RECOMMENDATION: Home with caregivers and HH PT
[2024-02-13] MEDS: busPIRone 5 MG TAB PO ×2 (09:06→14:05)
[2024-02-13] MEDS: Aspirin E.C. 81 MG TABEC PO (09:06)
[2024-02-13] MEDS: Normal Saline Flush 10 ML SYR IVP (09:06)
[2024-02-13] MEDS: lamoTRIgine 25 MG TAB 50 MG PO (09:07)
--- NOTE | 2024-02-13 10:30 | DI.US_ITS ---
APPROVED REPORT EXAM: Comprehensive 2D, Doppler, and color-flow Echocardiogram Patient Location: In-Patient Room/Bed: [facility] [employer] Professor: Alessandra Sloan RDCS (AE) Indications: CVA Echo Enhancing Agent Indication: Rule out Shunt Agent(s) / Amount(s) Used: Agitated Saline 30.0 cc Comments: Contrast study was performed with 3 IV injections of 10ccs of agitated normal saline, at [facility], with cough and post valsalva maneuver. Negative contrast study for shunt flow. Other Information Study Quality: Adequate Conclusion Normal left ventricular wall thickness and chamber size. Ejection fraction is 55%. Wall motion is n ormal Normal right ventricular size and function Left atrium is moderately enlarged. Right atrium is borderline dilated No intracardiac shunting is identified on injection of agitated saline Mitral annular calcification Estimated right ventricular systolic pressure is 31 mmHg Wall motion Left Ventricle The left ventricle is normal size. The left ventricular systolic function is normal. The left ventric ular ejection fraction is within the normal range. There is normal left ventricular wall thickness. T here is normal LV segmental wall motion. There is no ventricular septal defect visualized. LVEF is 55 %. Right Ventricle The right ventricle is normal size. The right ventricular systolic function is normal. Atria Left atrium is moderately dilated. Right atrium is borderline dilated. The interatrial septum is int act with no evidence for an atrial septal defect. Saline bubble contrast intravenous injection does n ot demonstrate PFO. Aortic Valve Aortic valve is trileaflet. There is no aortic valvular stenosis. No aortic regurgitation is present. Mitral Valve Moderate mitral annular calcification. No evidence of mitral valve stenosis. Mild mitral regurgitat ion. Tricuspid Valve The tricuspid valve is normal in structure. There is no tricuspid valve stenosis. Trace tricuspid reg urgitation. The RVSP is 30.9 mmHg. Pulmonic Valve The pulmonary valve is normal in structure. There is no pulmonic valvular stenosis. Trace pulmonic re gurgitation. Great Vessels The aortic root is normal in size. Ascending aorta is not well visualized. Aortic arch is not well vi sualized. IVC is normal in size and collapses >50% with inspiration. Pericardium There is no pericardial effusion. 2D Dimensions IVSD d PLAX 1.03 cm F: 0.6-1.0 Ao Root d 2.64 cm F: 2.7 - 3.3 LVPW d PLAX 1.04 cm F: 0.6 - 1.0 LVID d PLAX 3.98 cm F: 3.8 - 5.2 LVDs 2.85 cm F: 2.2 - 3.5 LV EF Teichholz 55.4 % FS 28.39 % LV EDV (Teich) 69.2 mL LV ESV (Teich) 30.9 mL M-Mode TAPSE 2.34 cm (M/F) >1.7 Auto EF LV EDV A4C 52.2 mL LV EDV A2C 60.8 mL LV EDV BP 56.4 mL LV ESV A4C 23.6 mL LV ESV A2C 26.8 mL LV ESV BP 25.2 mL LVEF(%) A4C 54.7 % LVEF(%) A2C 55.9 % LVEF(%) BP 55.4 % LV SV A4C 28.6 ml LV SV A2C 34.0 ml LV SV BP 31.3 ml LV CO A4C 2.3 L/min LV CO A2C 2.8 L/min LV CO BP 2.6 L/min HR A4C 81.82 BPM HR A2C 81.63 BPM LV EDV Index (BP) LA Volume LA Length A4C 5.3 cm LA Length A2C 5.2 cm LA Area A4C s 20.99 cm2 LA Area A2C s 19.21 cm2 LA Vol A4C A-L 69.92 mL LA Vol A2C A-L 60.07 mL LA Vol Biplane A-L 65.6 mL LA Vol/BSA A4C A-L LA Vol/BSA A2C A-L LA Vol/BSA BP A-L 42.1 mL/m2 LA Vol A4C MOD 65.6 mL LA Vol A2C MOD 55.2 mL LA Vol BP MOD 60.7 mL RA Volume RA Area A4C 9.9 cm2 RA ESV A4C (A-L) 17.9mL RA Vol/BSA A4C A-L RA Length A4C 4.6 cm RA ESV A4C (MOD) 17.6mL LV Diastology MV E' medial 0.051 (>0.07 m/s) MV E Vmax 0.74 (0.4-1.3 m/s) MV E/E' MED 14.47 (<14) MV A Vmax 1.15 (0.4-1.3 m/s) MV E' lateral 0.067 (>0.1 m/s) E/A Ratio 0.6 MV E/E' LAT 11.17 (<14) MV E' Average 0.059 m/s MV E/E'(average) 12.61 Aortic Valve AoV Vmax 1.75 m/s LVOT Vmax 1.13 m/s AoV Peak Grad 12.3 mmHg LVOT Peak Grad 5.1 mmHg AoV Area (Vmax) 2.04 cm2 LVOT VTI 0.253 m AoV VTI 0.337 m LVOT Mean Grad 2.7 mmHg AoV Mean Anuel. 1.18 m/s LVOT SV 80.21 mL AoV Mean Grad 6.3 mmHg LVOT Diam s 2.00 cm AoV Area (VTI) 2.38 cm2 AV Regurg Peak Gr. 12.30 mmHg Velocity Ratio 0.65 Mitral Valve MV DT 344 (160-240 msec) MV Vmax TIPS 1.22 m/s MV Mean Grad 2.7 (<2mmHg) MV VTI 0.273 m Pulmonary Valve PV Vmax 1.19 (0.5-1.5 m/s) RVOT Vmax 0.74 m/s PV Peak Grad 5.6 mmHg RVOT Peak Gr. 2.2 mmHg PV Mean Anuel 0.81 m/s RVOT VTI 0.163 m PV Mean Grad 2.9 mmHg RVOT Mean Gr. 1.1 mmHg Tricuspid Valve RA Pressure 3.00 mmHg TR Vmax 2.64 m/s TV S' 0.13 m/s TR Peak Grad 27.8 mmHg RVSP (TR) 30.9 mmHg
--- NOTE | 2024-02-13 10:31 | PHA.REVIEW2 ---
Pharmacy Admission Review Admission Clinical Review Admission Pharmacy Review: TIA (transient ischemic attack) (Acute) adhesive Allergy (Intermediate, Verified 01/15/24 15:35) SKIN RASH atenolol Allergy (Intermediate, Verified 01/15/24 15:35) SHORTNESS OF BREATH Echinacea Adverse Reaction (Intermediate, Verified 01/15/24 15:35) NAUSEA/VOMITING mushroom Adverse Reaction (Mild, Verified 01/15/24 15:35) Nausea lisinopril Adverse Reaction (Unknown, Verified 01/15/24 15:35) ANXIOUS pseudoephedrine Adverse Reaction (Unknown, Verified 01/15/24 15:35) ANXIOUS caffeine Adverse Reaction (Verified 01/15/24 15:35) shaky if >1 cup/day citalopram Adverse Reaction (Verified 01/15/24 15:35) ANXIETY inverted sugar Adverse Reaction (Verified 01/15/24 15:35) make nervous shellfish derived Adverse Reaction (Verified 01/15/24 15:35) NAUSEA/VOMITING NUT FLAVOR Allergy (Uncoded 01/15/24 15:35) HIVES Resuscitation Status Full Code Height 5 ft 1 in Weight 58.06 kg Comments Comments/Follow Ups: ECHO scheduled for today Pharmacy Admission Review Renal Dosing Renal Dosing: BUN 14 mg/dL (7-18) 02/13/24 06:24 Creatinine 0.7 mg/dL (0.55-1.02) 02/13/24 06:24 Medications needing adjustments: Reviewed (CrCl 34.31 mL/min) List of meds needing interventions: Current medications are okay Anticoagulation Anticoagulation: Hgb 11.3 g/dL (11.2-15.7) 02/13/24 06:24 Hct 35.0 % (36.0-46.0) L 02/13/24 06:24 Plt Count 160 10^3/uL (130-400) 02/13/24 06:24 Creatinine 0.7 mg/dL (0.55-1.02) 02/13/24 06:24 Therapeutic Anticoagulation: Reviewed (Hgb increased from 10.9 to 11.3) Medications: Apixaban (+ clopidogrel DUAP) Relevant Labs Relevant Labs: Sodium 147 mmol/L (136-145) H 02/13/24 06:24 Potassium 3.9 mmol/L (3.5-5.1) 02/13/24 06:24 Chloride 109 mmol/L (98-107) H 02/13/24 06:24 Magnesium 2.3 mg/dL (1.8-2.4) 02/12/24 05:40 Electrolytes, C-Reactive P, ESR: Reviewed (Na 147, lamotrigine level pending) Cardiac Review Cardiac Review: Troponin I < 50 ng/L (< or =60) 02/12/24 00:43 BP, HR, EF%: Reviewed (BP 125/53 and HR WNL) QTc Review QTc: Reviewed (424 from 02/11/24) IV to PO Switch IV Medications: Reviewed Home Meds Home Med List reviewed: Reviewed Relevent Home Meds Not ordered & why?: vitamin C, B12, fluticasone, ketoconazole cream, magnesium, senna and multivitamin Current Meds Current Medication Order Review: Reviewed Comments Comments/Follow Ups: ECHO scheduled for today
[2024-02-13] MEDS: Docusate Sodium 100 MG CAP PO (11:21)
[2024-02-13 11:57] VITALS: BP 121/61; PULSE 84; RESP 14; TEMP 36.7; O2SAT 98
--- NOTE | 2024-02-13 13:52 | PDOC.HHF2F_ITS ---
Home Health Referral Home Health Orders Clinical synopsis of why skilled professionals are needed: 83-year-old female patient with a past medical history of hypertension, subdural bleed, GERD, dementia, depression, and anxiety presented to the emergency room for evaluation of altered mental status on 02/11/2024. The patient has 24/7 caregivers and upon receiving her evening medication as the caregiver walked out for 2 minutes from the room, she found the patient unresponsive and drooling when returned. She attempted to wake up the patient for about 15 to 20 minutes resulting in the patient regaining consciousness with slurred speech that lasted for several seconds then resolved. As per previous notes the patient has some baseline xerostomia secondary to her home med regimen. A similar episode reportedly happened about a week prior to presentation resulting with the primary care practitioner ordering CT scan of the head which did not find any acute findings. The emergency workup findings were significant for normal vital signs, normal physical exam, normal CBC and CMP. EKG was unremarkable and head CT with neck CTA did not show any acute findings pointing to significant stenosis, aneurysm or occlusion. In the emergency room the patient received 124 mg of aspirin and was started on Plavix. The hospitalist service was consulted and the patient was admitted to the medical surgical floor for evaluation and management of TIA which require further investigation including MRI and echocardiogram as well as an EEG. During the stay, the patient was initiated on high-dose statin. The MRI was negative for any acute findings except for age-related changes. With lipid panel within normal limits high-dose statin therapy was discontinued. Echocardiogram was negative for stdkx-tj-yhau intracardiac shunt with an LVEF of 55% with normal wall motion. The patient remained asymptomatic. As per discussion with patient and family Lamictal therapy was initiated in 2022 status post subdural hemorrhage for suspicion of seizures. An EEG was ordered to be completed as outpatient to identify any abnormal foci that might not give way to tonic-clonic or other obvious seizure patterns in the setting of frequent episode of unresponsiveness resembling TIAs. PT recommendations for home health physical therapy to continue. The patient chronic conditions were managed as per home pharmacological regimen. The patient will have to follow-up with her primary care practitioner within 7 days of discharge. The patient will be discharged home with your referral for [facility] with physical therapy as she already has caregivers at home. Discussed with Dr. Ferreira Medical diagnosis necessitation home health referral: As above TIA r/o in the setting of recurrent unresponsiveness episodes Physical Therapist: Check all that apply Increase strength & endurance for safe mobility at home: Ordered To design/establish home maintenance program: Ordered Fall reduction therapy program for patient with history of frequent falls: Ordered Home safety evaluation and teaching/gait training including stair management (if applicable): Ordered Better Breathing Program: Ordered Encounter Date and Reason: I certify that a FTF encounter for this patient was performed on February 13, 2024 and that such encounter was related to the primary reason the patient requires home health services. The encounter was conducted in the following manner: * By me as the certifying physician, CIVIL PREPAREDNESS TRAINING OFFICER, PA or * By an inpatient physician, CIVIL PREPAREDNESS TRAINING OFFICER or PA during an inpatient stay who communicated findings to me, Certification And Authentication I certify that I composed the above information based on my clinical judgment relating to this patient's medical condition and, if applicable, clinical findings communicated to me by the NPP or inpatient physician who performed the FTF encounter. Name of Provider that will be monitoring home health services: Aparna Mcrae
--- NOTE | 2024-02-13 13:59 | PDOC.CMDIS ---
Date of service: 02/13/24 Time of Service: 13:59 LACE Index Scoring Tool Questions: Length of Stay (in days): 2 Was the patient admitted via the E.D.?: Yes E.D. Visits: 1 Answers: Total Score: 6 Risk of Readmission: Low Risk Care Management Discharge Plan Reason for Hospitalization: TIA Discharge Plan: Romy will be discharged home with resumption of caregiver supports and [facility] PT services via private vehicle with son. Pt will follow up with community providers and her discharge plan of care as instructed. Patient/Family Education Needs: Review discharge instructions, limitations, medications and plan to follow up with community providers. Discuss ask me three. Services Needed at Discharge: Home Health Care Services (New [facility] PT) SDOH Health Related Social Needs: No Data to Display Referrals and interventions: CM will place referral to [facility], patient is interested in [facility] Care Management Referrals: SHAYNE
[2024-02-13] MEDS: LORazepam 0.5 MG TAB PO (14:05)
[2024-02-13 15:25] VITALS: BP 142/70; PULSE 84; RESP 15; TEMP 36.5; O2SAT 98
[2024-02-14 13:06] LABS: Lamotrigine 3.2 mcg/mL (3.0-15.0)
== END 2024-02-13 15:48 | disposition home health service (06) ==
LOC: ER 02-12 14:44 → EDHOLD 02-12 15:17 → MS 02-12 18:49
PROVIDERS: Nurse Practitioner Acute Care; Physician Assistant; Admitting Provider Family Medicine; Emergency Provider Family Medicine; PCP Nurse Practitioner Family; Visit Provider Family Medicine
DX: R41.82 Altered mental status, unspecified (principal); F03.90 Unspecified dementia, unspecified severity, without behavioral disturbance, psychotic disturbance, mood disturbance, and anxiety; I10 Essential (primary) hypertension; K21.9 Gastro-esophageal reflux disease without esophagitis; L60.3 Nail dystrophy; D64.9 Anemia, unspecified; R32 Unspecified urinary incontinence; R26.9 Unspecified abnormalities of gait and mobility; E78.5 Hyperlipidemia, unspecified; F41.1 Generalized anxiety disorder; E53.8 Deficiency of other specified B group vitamins; M16.11 Unilateral primary osteoarthritis, right hip; K57.30 Diverticulosis of large intestine without perforation or abscess without bleeding; F32.9 Major depressive disorder, single episode, unspecified; G89.29 Other chronic pain; Z96.642 Presence of left artificial hip joint; Z79.899 Other long term (current) drug therapy
CPT/HCPCS: 00123; 36415; 36416; 70496; 70498; 80048; 80053; 80175; 82962; 85027; 93005; 93306; 97161; 97530; 99285; 70450; 70551; 81003; 81015; 83735; 84439; 84443; 84484; 85025; 93010; 99223; 99233; 99239; G0378; J3490

== ENCOUNTER 2024-02-23 01:28 | Outpatient (CLI) | payer MEDICARE, SELFPAY ==
--- NOTE | 2024-02-26 22:16 | PDOC.EEG_ITS ---
Neurology EEG EEG: [facility] Department of Neurology EEG REPORT Date of Recordin02/23/24 Interpreting Physician: Dr. Elvira Rosado PCP/Referring Provider: Alicia Carbone NP Reason for study: Ms. Arredondo is an 83 year-old with dementia who was found unresponsive, drooling on 02/12/24, taking about 20min to recover and return to baseline. Current Medications: Home Medications ?Medication ?Instructions ?Recorded ?Confirmed ?Type ascorbic acid (vitamin C) 500 mg 500 mg PO DAILY 04/04/14 02/12/24 History tablet (Vitamin C With Erin Hips) acetaminophen 500 mg tablet 500 mg PO BID 02/25/23 02/12/24 History fluticasone propionate 50 1 spray intranasal DAILY 02/25/23 02/12/24 History mcg/actuation nasal spray,suspension vitamins A,C,M-guzn-srobru 2,148 1 tab PO DAILY 02/25/23 02/12/24 History mcg-113 mg-45 mg-17.4 mg tablet (PreserVision AREDS) buspirone 5 mg tablet 5 mg PO HS 12/20/23 02/12/24 History buspirone 7.5 mg tablet 7.5 mg PO BID 12/20/23 02/12/24 History clonazepam 0.5 mg tablet 0.5 mg PO TID 12/20/23 02/12/24 History cyanocobalamin (vitamin B-12) 500 1,000 mcg PO DAILY 12/20/23 02/12/24 History mcg tablet (Vitamin B-12) lamotrigine 25 mg tablet 25 mg PO BID 12/20/23 02/12/24 History magnesium oxide 400 mg PO DAILY 12/20/23 02/12/24 History melatonin 5 mg tablet 5 mg PO HS PRN 12/20/23 02/12/24 History szxnxhll-jzz-eepuo acid 0.4 1 tab PO DAILY 12/20/23 02/12/24 History mg-lycopene 300 mcg-lutein 250 mcg tablet (Centrum Silver) ropinirole 0.5 mg tablet 0.5 mg PO QHS 12/20/23 02/12/24 History sennosides 8.6 mg tablet (Senna 8.6 mg PO DAILY 12/20/23 02/12/24 History Lax) trazodone 100 mg tablet 100 mg PO QHS PRN 12/20/23 02/12/24 History ketoconazole 2 % topical cream 1 applic topical DAILY #120 grams 02/06/24 02/12/24 Rx lamotrigine 100 mg tablet 50 mg PO BID 02/12/24 02/12/24 History mirtazapine 7.5 mg tablet 15 mg (2 x 7.5 mg) PO QHS #0 tabs 02/13/24 02/12/24 Rx METHODS: A 21 channel digitized electroencephalogram was performed in the [facility] Clinical Neurophysiology Laboratory. The 10/20 inter national system of electrode placement was used and bipolar and referential electrode montages were recorded. In addition to EEG the patient was monitored for EKG and lateral/vertical eye movements. Activation procedures of photic stimulation and hyperventilation were performed if applicable. Video was used during activation procedures and during events where applicable. The duration of the recording was 30 minutes. DESCRIPTION OF EEG: The patient was noted to be awake only during the recording. During maximal wakefulness a 9-Hz posterior background rhythm was present which was well- modulated, symmetrical, reactive to eye opening, and of moderate voltage. With eye opening the background activity changed to a low voltage mixture of alpha, beta, and occasional theta range frequencies. Faster frequencies were present in the bilateral anterior head regions. There was a normal anterior-posterior voltage gradient. No drowsiness or stage II sleep was recorded. Activating Procedures: Photic stimulation was performed which produced a symmetrical posterior driving response at various flash frequencies. Hyperventilation was not performed. EKG: EKG revealed normal sinus rhythm. INTERPRETATION: This EEG is normal during the awake state as well as during photic stimulation. PRIOR EEG: none CLINICAL CORRELATION: No focal regions of cerebral dysfunction or epileptiform activity was present. No sleep was recorded during the study which reduces the sensitivity of the exam. If seizure remains a part of the differential, consider a repeat sleep- deprived EEG or overnight ambulatory EEG. Epilepsy remains a clinical diagnosis and a normal EEG does not rule out epilepsy. Clinical correlation is advised. Elvira Rosado MD Date of service: 02/23/24
== END 2024-02-26 23:59 | disposition home or self-care (01) ==
LOC: RT 01:28
PROVIDERS: PCP Nurse Practitioner Family; Visit Provider Nurse Practitioner Acute Care
DX: G45.9 Transient cerebral ischemic attack, unspecified (principal)
CPT/HCPCS: 95816

== ENCOUNTER → 2024-02-27 06:09 | Outpatient (BNVA) | payer MEDICARE, SELFPAY | PROVIDERS: PCP Nurse Practitioner Family; Referring Provider Nurse Practitioner Family; Visit Provider Psychiatry & Neurology Neurology ==

== ENCOUNTER 2024-02-29 13:22 | Outpatient (CLI) | payer MEDICARE, SELFPAY ==
--- NOTE | 2024-04-02 08:46 | W.CARDEVENT ---
Date of service: 04/02/24 Time of Service: 08:46 Cardiac Event Recorder Referring Provider:: Aparna Mcrae Indications:: Unresponsive Cardiac Event Note: This is a cardiac event monitor. Patient was monitored for 27 days and 14 hours. Rhythm throughout was sinus with an average heart rate of 77. Minimum was 59, maximum 106 No significant dysrhythmias were recorded Symptoms correlated to sinus rhythm
== END 2024-02-29 13:23 | disposition home or self-care (01) ==
PROVIDERS: PCP Nurse Practitioner Family; Visit Provider Nurse Practitioner Family
DX: R40.20 Unspecified coma (principal); K11.7 Disturbances of salivary secretion; F03.90 Unspecified dementia, unspecified severity, without behavioral disturbance, psychotic disturbance, mood disturbance, and anxiety
CPT/HCPCS: 93270

== ENCOUNTER 2024-03-19 16:28 | Outpatient (REF) | payer MEDICARE, SELFPAY ==
[2024-03-19 14:23] LABS: Bilirubin Negative (Negative); Blood Negative (Negative); Clarity Clear (Clear); Glucose Negative (Negative); Ketones Negative (Negative); Leukocyte Esterase Trace (Negative); Nitrite Negative (Negative); Specific Gravity 1.015 (1.005-1.025); Urobilinogen 0.2 mg/dL (Up to 0.2)
[2024-03-19 14:47] LABS: Bacteria Negative HPF (Negative); C & S Indicated? No; Casts Negative LPF (Negative); Crystals Negative HPF (Negative); Epithelial Cells Few HPF (Negative); Mucus Negative (Negative); RBC Negative HPF (0-2); WBC Negative HPF (0-5)
== END 2024-03-19 16:29 | disposition home or self-care (01) ==
LOC: NCHCN 16:28
PROVIDERS: PCP Nurse Practitioner Family; Visit Provider Nurse Practitioner Family
DX: R32 Unspecified urinary incontinence (principal)
CPT/HCPCS: 81003; 81015

== ENCOUNTER 2024-04-02 09:02 | Outpatient (CLI) | payer MEDICARE, SELFPAY | END 2024-04-02 09:03 | disposition home or self-care (01) | LOC: CARDOPNVT 09:02 | PROVIDERS: PCP Nurse Practitioner Family; Visit Provider Internal Medicine Cardiovascular Disease | DX: R41.89 Other symptoms and signs involving cognitive functions and awareness (principal) | CPT/HCPCS: 93272 ==

== ENCOUNTER → 2024-05-27 09:26 | Outpatient (BNVA) | payer MEDICARE, SELFPAY | PROVIDERS: PCP Nurse Practitioner Family; Referring Provider Nurse Practitioner Family; Visit Provider Student in an Organized Health Care Education/Training Program | DX: M70.61 Trochanteric bursitis, right hip (principal); M16.11 Unilateral primary osteoarthritis, right hip | CPT/HCPCS: 20611; J1010 ==

== ENCOUNTER → 2024-06-05 13:19 | Outpatient (BNVA) | payer MEDICARE, SELFPAY | PROVIDERS: PCP Nurse Practitioner Family; Referring Provider Nurse Practitioner Family; Visit Provider Podiatrist | DX: L60.3 Nail dystrophy (principal); B35.1 Tinea unguium; R26.9 Unspecified abnormalities of gait and mobility; E53.8 Deficiency of other specified B group vitamins; R20.8 Other disturbances of skin sensation; R09.89 Other specified symptoms and signs involving the circulatory and respiratory systems; L65.9 Nonscarring hair loss, unspecified; I83.93 Asymptomatic varicose veins of bilateral lower extremities; R23.8 Other skin changes; L60.8 Other nail disorders | CPT/HCPCS: 11719; 11720 ==

== ENCOUNTER 2024-06-18 17:04 | Outpatient (REF) | payer MEDICARE, SELFPAY ==
[2024-06-18 22:07] LABS: TSH (W/Ref FT4) 1.26 uIU/mL (0.36-3.74)
== END 2024-06-18 17:05 | disposition home or self-care (01) ==
LOC: NCHCN 17:04
PROVIDERS: PCP Nurse Practitioner Family; Visit Provider Nurse Practitioner Family
DX: R41.89 Other symptoms and signs involving cognitive functions and awareness (principal); R32 Unspecified urinary incontinence; R82.89 Other abnormal findings on cytological and histological examination of urine
CPT/HCPCS: 84443; 87086

== ENCOUNTER → 2024-07-02 12:39 | Outpatient (BNVA) | payer MEDICARE, SELFPAY | PROVIDERS: PCP Nurse Practitioner Family; Referring Provider Nurse Practitioner Family; Visit Provider Psychiatry & Neurology Neurology | DX: R42 Dizziness and giddiness (principal); F03.90 Unspecified dementia, unspecified severity, without behavioral disturbance, psychotic disturbance, mood disturbance, and anxiety; R53.1 Weakness; F41.1 Generalized anxiety disorder; F32.9 Major depressive disorder, single episode, unspecified; G47.00 Insomnia, unspecified; R26.9 Unspecified abnormalities of gait and mobility; E53.8 Deficiency of other specified B group vitamins; S06.5XAD Traumatic subdural hemorrhage with loss of consciousness status unknown, subsequent encounter; X58.XXXD Exposure to other specified factors, subsequent encounter | CPT/HCPCS: 99215; G2212 ==

== ENCOUNTER 2024-07-19 22:03 | Outpatient (REF) | payer MEDICARE, SELFPAY ==
[2024-07-22 12:28] LABS: Albumin g/dL 4.3 g/dL (3.6-5.2); Total Protein 7.1 g/dL (6.3-8.2)
== END 2024-07-19 22:04 | disposition home or self-care (01) ==
LOC: NCHCN 22:03
PROVIDERS: PCP Nurse Practitioner Family; Visit Provider Nurse Practitioner Family
DX: R41.89 Other symptoms and signs involving cognitive functions and awareness (principal)
CPT/HCPCS: 83036; 84165

== ENCOUNTER 2024-08-05 01:33 | Outpatient (CLI) | payer MEDICARE, SELFPAY ==
--- NOTE | 2024-08-05 06:45 | DI.MRI_ITS ---
Exam(s) MR CERVICAL SPINE WO EXAM: MR CERVICAL SPINE WO CLINICAL HISTORY: ?myelopathy, bilateral arm parasthesias,abnl gait,generalized weakness,r53. TECHNIQUE: Multiplanar multisequence MRI of the cervical spine was performed without intravenous con trast. COMPARISON: No exams were available for comparison FINDINGS: CERVICOMEDULLARY JUNCTION: Intact with no evidence of cerebellar tonsillar ectopia. No obvious abnor mality of the odontoid process. No evidence of Chiari 1 malformation. CERVICAL SPINAL CORD: There is no abnormal signal in the cervical spinal cord and no evidence of foca l cord atrophy nor focal cord swelling. OSSEOUS:There are no cervical fractures evident. No significant osseous lesions in the cervical vert ebrae. INDIVIDUAL LEVELS: C2-3: No disc herniation nor central canal stenosis. No foraminal stenosis. Mild bilateral facet art hropathy. C3-4: Chronic moderate disc space narrowing.Mild symmetrical posterior annular bulging without a rosie nant disc herniation. Central canal dimensions are lower normal. Moderate bilateral facet arthropat hy. Small bilateral Luschka joint osteophytes. Moderate-severe bilateral foraminal stenosis. C4-5: Relatively preserved disc space height. No disc herniation. No central canal stenosis. Moder ate facet arthrosis on the left side and more severe on the right side. There is mild foraminal sten osis on the left side. More severe foraminal stenosis on the right side. C5-6: This level exhibits mild disc space narrowing. No significant disc herniation or central canal stenosis. Mild facet arthropathy on the left side and more prominent facet arthropathy on the right side. No significant foraminal stenosis on the left side.. Mild foraminal stenosis on the right si de. C6-7: Normal disc height and signal. No disc herniation. No central canal stenosis. Facet joint on the left side appears unremarkable. Significant degenerative changes in the left facet joint. No f oraminal stenosis on the left side. Mild foraminal stenosis on the right side. C7-T1: No disc herniation nor central canal stenosis. Moderate bilateral facet arthropathy.No signifi cant foraminal stenosis on either side at this level. IMPRESSION: 1. No significant disc herniations evident. Also no significant central spinal canal stenosis. 2. Multilevel asymmetric facet arthropathy with asymmetric foraminal stenosis as described per indivi dual level above. 3. The normal cervical curvature is maintained. DATA REPOSITORY:
== END 2024-08-05 01:53 ==
LOC: DI 01:34
PROVIDERS: PCP Nurse Practitioner Family; Visit Provider Psychiatry & Neurology Neurology
DX: R26.9 Unspecified abnormalities of gait and mobility (principal); R53.1 Weakness
CPT/HCPCS: 72141

== ENCOUNTER 2024-08-13 10:34 | Outpatient (REF) | payer MEDICARE, SELFPAY | END 2024-08-13 10:35 | disposition home or self-care (01) | LOC: LBN 10:34 | PROVIDERS: PCP Nurse Practitioner Family; Visit Provider Obstetrics & Gynecology | DX: R30.0 Dysuria (principal); B95.1 Streptococcus, group B, as the cause of diseases classified elsewhere | CPT/HCPCS: 87077; 87086 ==

== ENCOUNTER → 2024-09-02 13:32 | Outpatient (BNVA) | payer MEDICARE, SELFPAY | PROVIDERS: PCP Nurse Practitioner Family; Referring Provider Nurse Practitioner Family; Visit Provider Podiatrist | DX: L60.3 Nail dystrophy (principal); R26.9 Unspecified abnormalities of gait and mobility; B35.1 Tinea unguium; E53.8 Deficiency of other specified B group vitamins; R20.2 Paresthesia of skin; R20.8 Other disturbances of skin sensation; R09.89 Other specified symptoms and signs involving the circulatory and respiratory systems; R60.0 Localized edema; L65.9 Nonscarring hair loss, unspecified; L60.2 Onychogryphosis; L60.8 Other nail disorders | CPT/HCPCS: 11719; 11720 ==

== ENCOUNTER → 2024-09-04 15:03 | Outpatient (BNVA) | payer MEDICARE, SELFPAY | PROVIDERS: PCP Nurse Practitioner Family; Referring Provider Nurse Practitioner Family; Visit Provider Psychiatry & Neurology Neurology | DX: F03.90 Unspecified dementia, unspecified severity, without behavioral disturbance, psychotic disturbance, mood disturbance, and anxiety (principal); R42 Dizziness and giddiness; R53.1 Weakness; F41.1 Generalized anxiety disorder; F32.9 Major depressive disorder, single episode, unspecified; G47.00 Insomnia, unspecified; R26.9 Unspecified abnormalities of gait and mobility; E53.8 Deficiency of other specified B group vitamins; G47.61 Periodic limb movement disorder | CPT/HCPCS: 99214 ==

== ENCOUNTER → 2024-09-05 13:43 | Outpatient (BNVA) | payer MEDICARE, SELFPAY | PROVIDERS: PCP Nurse Practitioner Family; Referring Provider Nurse Practitioner Family; Visit Provider Student in an Organized Health Care Education/Training Program | DX: M16.11 Unilateral primary osteoarthritis, right hip (principal) | CPT/HCPCS: 20611; J1010 ==

== ENCOUNTER 2024-11-07 10:01 | Outpatient (CLI) | payer MEDICARE, SELFPAY ==
--- NOTE | 2024-11-07 09:00 | DI.RAD_ITS ---
Exam(s) XR HIP RT COMPLETE AP PELVIS EXAM: XR HIP RT COMPLETE AP PELVIS CLINICAL HISTORY: hip pain. TECHNIQUE: 2D digital imaging was performed of the right hip. Two images were obtained. AP pelvis a nd lateral right hip views were obtained. COMPARISON: CR XR hip RT complete AP pelvis from 06/25/2018 CR XR pelvis AP from 12/04/2018 FINDINGS: BONES: No acute fracture is present. No bony destructive lesion is seen. There is a healed right infe rior pubic ramus fracture deformity which is new since the prior examination from 2019. JOINTS: Since the prior examination there has been complete loss of the right hip joint space. Osteo phytes are seen at the acetabulum. Subchondral sclerosis and cysts are seen in the right femoral hea d. There also appears to be mild loss of volume of the right femoral head. There again seen finding s of a left total hip arthroplasty. SOFT TISSUE: Normal. IMPRESSION: Marked arthrosis of the right hip. There has been significant progression of disease since the prior examination from 2019. DATA REPOSITORY: RADIATION DOSE DELIVERED:
== END 2024-11-07 10:02 | disposition home or self-care (01) ==
LOC: DIORS 10:01
PROVIDERS: PCP Nurse Practitioner Family; Referring Provider Nurse Practitioner Family; Visit Provider Physician Assistant
DX: M16.11 Unilateral primary osteoarthritis, right hip (principal); R42 Dizziness and giddiness
CPT/HCPCS: 99214; 73502

== ENCOUNTER → 2024-12-04 14:52 | Outpatient (BNVA) | payer MEDICARE, SELFPAY | PROVIDERS: PCP Nurse Practitioner Family; Referring Provider Nurse Practitioner Family; Visit Provider Psychiatry & Neurology Neurology | DX: F03.90 Unspecified dementia, unspecified severity, without behavioral disturbance, psychotic disturbance, mood disturbance, and anxiety (principal); R42 Dizziness and giddiness; R53.1 Weakness; S06.5XAS Traumatic subdural hemorrhage with loss of consciousness status unknown, sequela; F41.1 Generalized anxiety disorder; F32.9 Major depressive disorder, single episode, unspecified; G47.00 Insomnia, unspecified; R26.9 Unspecified abnormalities of gait and mobility; E53.8 Deficiency of other specified B group vitamins; G47.61 Periodic limb movement disorder; G24.01 Drug induced subacute dyskinesia; I10 Essential (primary) hypertension | CPT/HCPCS: 99214 ==

== ENCOUNTER 2024-12-23 18:24 | Outpatient (REF) | payer MEDICARE, SELFPAY ==
[2024-12-24 12:51] LABS: Clarity Clear (Clear)
[2024-12-24 12:52] LABS: Specific Gravity 1.015 (1.005-1.025)
[2024-12-24 12:53] LABS: Bilirubin Negative (Negative); Blood Negative (Negative); Glucose Negative (Negative); Ketones Negative (Negative); Leukocyte Esterase Trace (Negative); Nitrite Negative (Negative); Urobilinogen 0.2 mg/dL (Up to 0.2)
[2024-12-24 12:54] LABS: Bacteria Negative HPF (Negative); C & S Indicated? No; Casts Negative LPF (Negative); Crystals Negative HPF (Negative); Epithelial Cells Negative HPF (Negative); Mucus Negative (Negative); RBC Negative HPF (0-2); WBC 0-2 HPF (0-5)
== END 2024-12-23 18:25 | disposition home or self-care (01) ==
LOC: NCHCN 18:24
PROVIDERS: PCP Nurse Practitioner Family; Visit Provider Nurse Practitioner Family
DX: R32 Unspecified urinary incontinence (principal)
CPT/HCPCS: 81003; 81015

== ENCOUNTER → 2024-12-30 13:22 | Outpatient (BNVA) | payer MEDICARE, SELFPAY | PROVIDERS: PCP Nurse Practitioner Family; Referring Provider Nurse Practitioner Family; Visit Provider Podiatrist | DX: L60.3 Nail dystrophy (principal); B35.1 Tinea unguium; R26.9 Unspecified abnormalities of gait and mobility; E53.8 Deficiency of other specified B group vitamins; R09.89 Other specified symptoms and signs involving the circulatory and respiratory systems; R20.8 Other disturbances of skin sensation; I83.93 Asymptomatic varicose veins of bilateral lower extremities; L65.9 Nonscarring hair loss, unspecified; R23.8 Other skin changes; L60.2 Onychogryphosis; L60.8 Other nail disorders | CPT/HCPCS: 11719; 11720 ==

== ENCOUNTER → 2025-03-06 09:50 | Outpatient (BNVA) | payer MEDICARE, SELFPAY | PROVIDERS: PCP Nurse Practitioner Family; Referring Provider Nurse Practitioner Family; Visit Provider Nurse Practitioner Gerontology | DX: R32 Unspecified urinary incontinence (principal); R35.0 Frequency of micturition | CPT/HCPCS: 99213; 51798 ==

== ENCOUNTER 2025-04-15 10:51 | Outpatient (CLI) | payer MEDICARE, SELFPAY ==
[2025-04-15 10:07] VITALS: BP 145/64; PULSE 79; RESP 18; TEMP 36.8; O2SAT 96
--- NOTE | 2025-04-15 11:51 | PDOC.PAIN_ITS ---
Date of service: 04/15/25 Time of Service: 12:12 Pain Managment Procedure Note Procedure Note Procedure Note: Greater Trochanteric Bursa Injection of Steroid ? Location: Right Greater Trochanteric Bursa ? Pre-procedure Diagnosis: M25.551 Pain in right hip ? Post-procedure Diagnosis:? The same as above ? Sedation: none ? Estimated blood loss:? less than 2 cc ? Surgeon:? Jr Shelby MD ? Procedure Detail:? The procedure and potential risks were explained to the patient and informed written consent was obtained. The patient was escorted to the procedure room and placed in the left lateral decubitus position. Pillows were utilized for proper positioning and comfort.? Time out was performed in the procedure room with nursing staff confirming the patient's identity, procedure to be performed, allergies, and any blood thinning or anti-platelet medications. The skin overlying the right lateral hip was prepped with ChloraPrep. Sterile gloves were used, a face mask was worn, and new single dose vials of all medicat ions were used with the top being swabbed with alcohol and given time to dry prior to withdrawal of medication. Under fluoroscopic AP projection, the greater trochanter was visualized.? 1% lidocaine was used to anesthetize the skin. A 22 gauge needle was advanced toward the greater trochanteric bursa. After reaching the greater trochanter,0.5ml Omnipaque injected confirming position.?? A mixture consisting of 4cc of 0.5% bupivacaine and 40mg of methylprednisolone was injected into the bursa. The needle was gently removed. The procedure was then repeated on the opposite side.? The patient tolerated the procedure well, and was transported to the recovery area for observation and discharge instructions. Permanent images saved and recorded. PAIN: PRE-PROCEDURE 10 POST-PROCEDURE 11/23 Plan:? Follow up prn COMMENT: Per Dr. Limon if she is not improved then would consider right intra- articular hip injection or investigate lumbar spine and consider right L5 Coding Conscious Sedation used for procedure: No CPT Codes: Fluoroscopic guidance (non spine inj.) - 76289 ([id number] ~G) Inj,Bursa/Tendon Major (not SI); Ischial Bursa - 77308 ([id number] ~G) Additional Codes: Date of Service (04662) Date of service: 04/15/25 Diagnoses: M25.551 Pain in right hip
[2025-04-15 11:56] VITALS: PULSE 88; O2SAT 96
[2025-04-15 12:00] VITALS: PULSE 87; O2SAT 98
[2025-04-15] MEDS: Omnipaque 240 MG/ML 50 ML BTL IJ (12:15)
[2025-04-15] MEDS: Bupivacaine 0.5% Pres-Free 10 ML VIAL IJ (12:15)
[2025-04-15] MEDS: Nerve Block Tray 1 EACH MC (12:15)
[2025-04-15] MEDS: methylPREDNISolone ACETATE 80 MG/ML VIAL IJ (12:16)
== END 2025-04-15 10:52 | disposition home or self-care (01) ==
LOC: PC 10:51
PROVIDERS: PCP Nurse Practitioner Family; Visit Provider Anesthesiology Pain Medicine
DX: M25.551 Pain in right hip (principal)
CPT/HCPCS: 20610; 77002; J0665; J1010; Q9967

== ENCOUNTER → 2025-04-28 14:27 | Outpatient (BNVA) | payer MEDICARE, SELFPAY | PROVIDERS: PCP Nurse Practitioner Family; Referring Provider Nurse Practitioner Family; Visit Provider Psychiatry & Neurology Neurology | DX: F03.90 Unspecified dementia, unspecified severity, without behavioral disturbance, psychotic disturbance, mood disturbance, and anxiety (principal); R42 Dizziness and giddiness; R53.1 Weakness; S06.5XAA Traumatic subdural hemorrhage with loss of consciousness status unknown, initial encounter; F41.1 Generalized anxiety disorder; F32.9 Major depressive disorder, single episode, unspecified; G47.00 Insomnia, unspecified; R26.9 Unspecified abnormalities of gait and mobility; E53.8 Deficiency of other specified B group vitamins; X58.XXXA Exposure to other specified factors, initial encounter; I10 Essential (primary) hypertension | CPT/HCPCS: 99214 ==

== ENCOUNTER 2025-05-02 16:05 | Outpatient (REF) | payer MEDICARE, SELFPAY ==
[2025-05-02 21:04] LABS: Abs Immature Grans 0.01 10^3/uL (0.0-0.06); HCT 35.9 % (36.0-46.0); HGB 11.7 g/dL (11.2-15.7); Immature Grans % 0.1 %; MCH 29.0 pg (27.0-33.0); MCHC 32.6 % (32.0-36.0); MCV 89 fL (80-95); MPV 9.2 fL (8.0-11.0); Platelet Count 201 10^3/uL (130-400); RBC 4.04 10^6/uL (3.93-5.22); RDW 12.6 % (11.7-14.6); RDW-SD 41.0 fL; WBC 6.85 10^3/uL (4.4-10.8)
[2025-05-02 21:15] LABS: Iron 48 ug/dL (50-170); Total Iron Binding Capacity 289 ug/dL (250-450)
[2025-05-02 21:16] LABS: ALT 17 U/L (14-59); AST 16 U/L (15-37); Albumin 4.0 g/dL (3.4-5.0); Alkaline Phosphatase 78 U/L (46-116); Anion Gap 9.3 mmol/L (3-11); BUN 11 mg/dL (7-18); Bilirubin, Total 0.5 mg/dL (0.2-1.0); CO2 26.7 mmol/L (21.0-32.0); Calcium 8.7 mg/dL (8.5-10.1); Chloride 97 mmol/L (98-107); Estimated GFR 87.91 (mL/min/1.73m2); Glucose 97 mg/dL (74-106); Potassium 4.2 mmol/L (3.5-5.1); Sodium 133 mmol/L (136-145); Total Protein 6.9 g/dL (6.4-8.2)
== END 2025-05-02 16:06 | disposition home or self-care (01) ==
LOC: NCHCN 16:05
PROVIDERS: PCP Nurse Practitioner Family; Visit Provider Nurse Practitioner Family
DX: F43.23 Adjustment disorder with mixed anxiety and depressed mood (principal); D64.9 Anemia, unspecified
CPT/HCPCS: 80053; 83540; 83550; 85025

== ENCOUNTER → 2025-05-05 13:17 | Outpatient (BNVA) | payer MEDICARE, SELFPAY | PROVIDERS: PCP Nurse Practitioner Family; Referring Provider Nurse Practitioner Family; Visit Provider Podiatrist | DX: L60.3 Nail dystrophy (principal); B35.1 Tinea unguium; R26.9 Unspecified abnormalities of gait and mobility; E53.8 Deficiency of other specified B group vitamins; G25.81 Restless legs syndrome; G47.61 Periodic limb movement disorder; R09.89 Other specified symptoms and signs involving the circulatory and respiratory systems; R60.0 Localized edema; R20.8 Other disturbances of skin sensation; I83.93 Asymptomatic varicose veins of bilateral lower extremities; L65.9 Nonscarring hair loss, unspecified; R23.4 Changes in skin texture; L60.2 Onychogryphosis; L60.8 Other nail disorders | CPT/HCPCS: 11719; 11720 ==